=== PATIENT | female | born 1965 | race Caucasian/White ===

== ENCOUNTER 2017-08-11 13:57 | Inpatient (IN) ==
[2017-08-11] MEDS ORDERED: Ipratropium/Albuterol Neb 3 ML IH ONE ×2 (14:38→16:31)
[2017-08-11] MEDS ORDERED: methylPREDNISolone 125 MG/2 ML VIAL IVP ONE (14:39)
--- NOTE | 2017-08-11 14:51 | Emergency Department Note ---
Disposition Clinical Impression: COPD exacerbation, Cardiac enzymes elevated Disposition: Admitted As Inpatient Condition: Fair Referrals: NONE,PCP [Primary Care Provider] - Forms: ED Satisfaction Letter Time of Disposition: 15:37 SOB HPI - General Chief Complaint: ED Shortness of Breath/Dyspnea Stated Complaint: QUITA Time Seen by Provider: 08/11/17 14:36 Source: patient Limitations: no limitations Nursing Notes Reviewed: Yes Vital Signs Reviewed: Yes - History of Present Illness 52-year-old with increasing shortness of breath. Patient has history COPD and says she's had several attacks like this in the past. She has chest pain with cough only. Initial EKG shows T-wave inversion II, III and aVF and also V3 and V4. 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 Context: recent illness Severity: moderate Consistency/Duration: constant Improves with: nothing Worsens with: nothing Known history of: COPD Associated symptoms: Reports: chest pain, cough Cough Description: Involuntary Cough Frequency: Intermittent - Related Data Home Medications Medication Instructions Recorded Confirmed Albuterol Neb [Proventil Neb] 2.5 mg IH TID 08/11/17 08/11/17 Benzonatate [Tessalon] 200 mg PO TID PRN 08/11/17 08/11/17 Diclofenac Sodium [Voltaren] 75 mg PO BID PRN 08/11/17 08/11/17 Lisinopril [Zestril] 20 mg PO DAILY 08/11/17 08/11/17 Allergies Allergy/AdvReac Type Severity Reaction Status Date / Time No Known Allergies Allergy Verified 08/11/17 14:04 All systems ED: reviewed and negative except as stated. Constitutional: Denies: fever, chills, weakness, weight change Eyes: Denies: eye pain, eye discharge, vision change ENT ED: Denies: ear pain, throat pain, dental pain, hearing loss, epistaxis, congestion, dysphagia Cardiovascular: Reports: chest pain (Chest pain with coughing ). Denies: palpitations, dyspnea on exertion, edema, syncope Respiratory: Reports: cough. Denies: dyspnea, wheezes, hemoptysis, stridor Gastrointestinal: Denies: abdominal pain, nausea, vomiting, diarrhea, constipation, hematemesis, melena, hematochezia Genitourinary: Denies: dysuria, frequency, hematuria, discharge Musculoskeletal: Denies: back pain, neck pain, arthralgia, myalgia Integumentary: Denies: rash, abrasion, lesions Neurological: Denies: headache, weakness, numbness, paresthesias, confusion, abnormal gait, vertigo Psychiatric: Denies: anxiety, depression, suicidal thoughts, homicidal thoughts , auditory hallucinations, visual hallucinations Endocrine: Denies: fatigue Hematological/Lymphatic: Denies: easy bleeding, easy bruising Allergic/Immunologic: Denies: facial swelling, urticaria Past Medical History - Past Medical History Medical history: Reports: COPD, hypertension, other Psychiatric history: Reports: no psych history - Social History Smoking Status: Current every day smoker Smokeless Tobacco Status: No Alcohol use: Reports: none Drug use: Reports: none Physical Exam - General Limitations: no limitations General appearance: alert - Head Head exam: atraumatic, normocephalic, normal inspection - Eye Eye exam: Present: normal appearance, PERRL, EOMI - ENT ENT exam: normal exam, normal oropharynx, mucous membranes moist - Neck Neck exam: Present: normal inspection, full ROM, trachea midline - Chest Chest inspection: Present: normal inspection - Respiratory Respiratory exam: Present: wheezes, accessory muscle use, prolonged expiratory phase - Cardiovascular Cardiovascular exam: Present: regular rate, normal rhythm, normal heart sounds - Abdominal Exam Abdominal exam: Present: soft, Non-Tender. Absent: tenderness, distention, guarding, rebound, rigidity - Extremities Exam Extremities exam: Present: normal inspection, full ROM. Absent: tenderness, pedal edema - Expanded Lower Extremity Exam Neurovascular/Tendon exam: Absent: motor deficit, sensory deficit, tendon deficit Gait: not tested/not observed - Back Exam Back exam: Present: normal inspection, full ROM. Absent: tenderness - Neurological Exam Neurological exam: Present: alert, oriented X3 - Psychiatric Psychiatric exam: Present: normal affect, normal mood - Skin Skin exam: Present: warm, dry, intact, normal color Course - Reevaluation(s) Reevaluation #1: 52-year-old with a history COPD comes in with increasing shortness of breath. Workup included an EKG that showed new T-wave inversion in inferior leads II, III, and F aVF, V4 and V5. The EKG was sent to the soda dialyzer for review. Patient will be admitted. Time: 15:36 - Consultations Consultation #1: Discussed with Dr. Grayson, copies of EKG were sent to hit him for review. Time: 14:54 Consultation #2: Cardiology return phone call concerning the EKG just now and wants it run by the interventionalists does not eat STEMI protocol but is somewhat worrisome. Recommend heparin. Time: 15:47 Consultation #3: DIscussed with Dr. Pike interventional cardiology. We did send the EKG to him. Time: 16:09 Additional Consultation(s): 16:[address] Pike is here seeing patient. 16:[address] Pike request a repeat troponin and CK. At this point in time he is not going to go to [facility] thinks most of the problem is COPD we will admit. 16:44PM discussed with Dr. Stephens, admit. Vital Signs Temperature 97.4 F L 08/11/17 14:01 Pulse Rate 97 08/11/17 14:01 Respiratory Rate 22 08/11/17 14:01 Blood Pressure 133/82 08/11/17 14:01 O2 Sat by Pulse Oximetry 77 08/11/17 14:01 Temperature 97.4 F L 08/11/17 14:01 Pulse Rate 88 08/11/17 15:29 Respiratory Rate 18 08/11/17 15:29 Blood Pressure 128/90 08/11/17 15:29 O2 Sat by Pulse Oximetry 99 08/11/17 15:29 Oxygen Delivery Oxygen Delivery Nasal Cannula Shortness of Breath/Dyspnea - Lab Data Lab results reviewed: Yes I reviewed the patient's lab results. Result diagrams: 08/11/17 14:48 08/11/17 14:48 Lab Results 08/11/17 08/11/17 08/11/17 Range/Units 14:48 14:48 14:48 WBC 7.6 (4.3-11.1) K/mcL RBC 5.19 H (3.82-4.97) M/mcL Hgb 16.9 H (11.5-15.4) g/dL Hct 50.3 H (35.3-44.9) % MCV 96.9 (83.0-100.0) fL MCH 32.6 (28.0-33.3) pg MCHC 33.6 (31.6-35.5) g/dL RDW 14.6 H (11.5-14.5) % Plt Count 243 (140-400) K/mcL MPV 9.6 (9.4-12.4) fL Immature Gran % 0.5 (0-4) % Seg Neutrophils % 79.1 % Lymphocytes % 13.9 % Monocytes % 4.7 % Eosinophils % 1.3 % Basophils % 0.5 % Neutrophils # 6.0 (1.6-8.9) K/mcL Lymphocytes # 1.1 (0.6-4.6) K/mcL Monocytes # 0.4 (0.0-1.3) K/mcL Eosinophils # 0.1 (0.0-0.6) K/mcL Basophils # 0.0 (0.0-0.2) K/mcL Sodium 137 (136-145) mEq/L Potassium 4.2 (3.5-4.5) mEq/L Chloride 98 (98-109) mEq/L Carbon Dioxide 29 (19-29) mEq/L BUN 8 (7-20) mg/dL Creatinine 0.69 (0.57-1.11) mg/dL Est GFR ( Amer) > 60 (> 60) Est GFR (Non-Af Amer) > 60 (> 60) BUN/Creatinine Ratio 12 (6-26) Glucose 164 H (70-99) mg/dL Calculated Osmolality 286 (280-300) Lactic Acid 1.2 (0.5-2.2) mmol/L Calcium 8.9 (8.6-10.8) mg/dL Troponin I (0-0.03) ng/mL B-Natriuretic Peptide (0-100) pg/mL Urine Test (Negative) Specimen Rejected 08/11/17 08/11/17 08/11/17 Range/Units 14:48 14:48 14:52 WBC (4.3-11.1) K/mcL RBC (3.82-4.97) M/mcL Hgb (11.5-15.4) g/dL Hct (35.3-44.9) % MCV (83.0-100.0) fL MCH (28.0-33.3) pg MCHC (31.6-35.5) g/dL RDW (11.5-14.5) % Plt Count (140-400) K/mcL MPV (9.4-12.4) fL Immature Gran % (0-4) % Seg Neutrophils % % Lymphocytes % % Monocytes % % Eosinophils % % Basophils % % Neutrophils # (1.6-8.9) K/mcL Lymphocytes # (0.6-4.6) K/mcL Monocytes # (0.0-1.3) K/mcL Eosinophils # (0.0-0.6) K/mcL Basophils # (0.0-0.2) K/mcL Sodium (136-145) mEq/L Potassium (3.5-4.5) mEq/L Chloride (98-109) mEq/L Carbon Dioxide (19-29) mEq/L BUN (7-20) mg/dL Creatinine (0.57-1.11) mg/dL Est GFR ( Amer) (> 60) Est GFR (Non-Af Amer) (> 60) BUN/Creatinine Ratio (6-26) Glucose (70-99) mg/dL Calculated Osmolality (280-300) Lactic Acid (0.5-2.2) mmol/L Calcium (8.6-10.8) mg/dL Troponin I 0.05 H* (0-0.03) ng/mL B-Natriuretic Peptide 673 H (0-100) pg/mL Urine Test (Negative) Specimen Rejected Hemolyzed 08/11/17 Range/Units 15:27 WBC (4.3-11.1) K/mcL RBC (3.82-4.97) M/mcL Hgb (11.5-15.4) g/dL Hct (35.3-44.9) % MCV (83.0-100.0) fL MCH (28.0-33.3) pg MCHC (31.6-35.5) g/dL RDW (11.5-14.5) % Plt Count (140-400) K/mcL MPV (9.4-12.4) fL Immature Gran % (0-4) % Seg Neutrophils % % Lymphocytes % % Monocytes % % Eosinophils % % Basophils % % Neutrophils # (1.6-8.9) K/mcL Lymphocytes # (0.6-4.6) K/mcL Monocytes # (0.0-1.3) K/mcL Eosinophils # (0.0-0.6) K/mcL Basophils # (0.0-0.2) K/mcL Sodium (136-145) mEq/L Potassium (3.5-4.5) mEq/L Chloride (98-109) mEq/L Carbon Dioxide (19-29) mEq/L BUN (7-20) mg/dL Creatinine (0.57-1.11) mg/dL Est GFR ( Amer) (> 60) Est GFR (Non-Af Amer) (> 60) BUN/Creatinine Ratio (6-26) Glucose (70-99) mg/dL Calculated Osmolality (280-300) Lactic Acid (0.5-2.2) mmol/L Calcium (8.6-10.8) mg/dL Troponin I (0-0.03) ng/mL B-Natriuretic Peptide (0-100) pg/mL Urine Test Negative (Negative) Specimen Rejected - Radiology Data Radiology results reviewed: Yes I reviewed the patient's radiology results. Chest X-Ray 08/11/17 14:04 IMPRESSION: 1. No active pulmonary disease. D/ / Giovany Puente MD / Giovany Puente MD Interpreting Provider: Giovany Puente MD - EKG Data EKG attestation: Yes I reviewed and interpreted this EKG. EKG shows normal: Reports: sinus rhythm Rate: Reports: normal Rhythm: Reports: NSR Sims/QRS: Reports: normal Voltage: Reports: increased voltage throughout T wave inversions noted in: Reports: II, III, aVF, v4, v5 When compared to previous EKG there are: changes noted Interpretation: Reports: no acute changes Critical Care Time Critical Care Time: Yes Total Critical Care Time: 30 Attestation: The high probability of a clinically significant, sudden or life threatening deterioration of the [cardiovascular, respiratory] system(s) required my full and direct attention, intervention and personal management. The aggregate critical care time was [30] minutes. This time is in addition to time spent performing reported procedures but includes the following: [x] Data Review and interpretation [x] Patient assessment and monitoring of vital signs [x] Documentation [x] Medication orders and management
[2017-08-11 15:05] LABS: Basophils % 0.5 %; Eosinophils # 0.1 K/mcL (0.0-0.6); Eosinophils % 1.3 %; Hematocrit 50.3 % (35.3-44.9); Hemoglobin 16.9 g/dL (11.5-15.4); Immature Granulocytes % 0.5 % (0-4); Lymphocytes # 1.1 K/mcL (0.6-4.6); Lymphocytes % 13.9 %; Mean Corpuscular HGB Conc 33.6 g/dL (31.6-35.5); Mean Corpuscular Hemoglobin 32.6 pg (28.0-33.3); Mean Corpuscular Volume 96.9 fL (83.0-100.0); Mean Platelet Volume 9.6 fL (9.4-12.4); Monocytes # 0.4 K/mcL (0.0-1.3); Monocytes % 4.7 %; Platelet Count 243 K/mcL (140-400); Red Blood Count 5.19 M/mcL (3.82-4.97); Red Cell Distribution Width 14.6 % (11.5-14.5); Segmented Neutrophils % 79.1 %
[2017-08-11 15:12] LABS: BUN/Creatinine Ratio 12 (6-26); Blood Urea Nitrogen 8 mg/dL (7-20); Calcium 8.9 mg/dL (8.6-10.8); Carbon Dioxide 29 mEq/L (19-29); Chloride 98 mEq/L (98-109); Glucose 164 mg/dL (70-99); Osmolality,Calculated 286 (280-300); Potassium 4.2 mEq/L (3.5-4.5); Sodium 137 mEq/L (136-145); eGFR For African Americans > 60 (> 60); eGFR For Non-African Americans > 60 (> 60)
[2017-08-11] MEDS ORDERED: Aspirin 81 MG TAB.CHEW PO ONE (15:38)
[2017-08-11] MEDS ORDERED: *HR* Heparin 5,000 UNIT/ML VIAL IVP ONE (15:48)
[2017-08-11] MEDS ORDERED: *HR* Heparin 5,000 UNIT/ML VIAL IVP PRN ×2 (15:48)
[2017-08-11] MEDS: Heparin 25,000 UNIT/500 ML D5W 25,000 UNIT/500 ML MLS IVC SCH (16:25)
[2017-08-11] MEDS ORDERED: Levalbuterol Neb 1.25 MG/3 ML IH STA (16:32)
[2017-08-11 16:48] LABS: INR 1.4
--- NOTE | 2017-08-11 16:51 | Cardiology Consult Note ---
Date of Encounter: 08/11/17 Time of Encounter: 16:47 Assessment and Plan (1) Cardiac enzymes elevated Current Visit: Yes Status: Acute Troponins of 0.05 with an abnormal EKG biphasic T waves V4 through V6 and flipped T waves in the inferior leads mainly not indicated a significant wraparound LAD disease. Patient currently asymptomatic in regards to chest pain and her breathing is much improved with bronchodilators. As she is making progress A do not feel the patient is a candidate for left heart catheter due to her inability to lay flat. Her risk benefit ratio is 2 elevated at this time. If she has elevated troponins on her repeat to be obtained stat or she complains of increasing tachypnea and respiratory insufficiency or chest pain she will need sedated and intubated with an emergent left heart catheter. Medical management with aspirin and heparin ACS protocol will be initiated meanwhile. We will obtain an echocardiogram to evaluate her ejection fraction and rule out regional wall motion abnormalities Code(s): R74.8 - Abnormal levels of other serum enzymes Discussion w patient/family: The assessment and plan as outlined above was discussed with the patient and/or family members who expressed understanding and agreement. All questions were answered. Thank you for involving us in the care of your patient. Please call with any questions. History of Present Illness Consult date: 08/11/17 Requesting physician: Harish Quiroz Consult reason: Abnormal EKG Chief complaint: SOB History of present illness: Ms. Davila is a 52 year old female with history of COPD presenting to the emergency department with significant respiratory insufficiency. She initially presented to an urgent care with severe respiratory distress and shortness of breath wheezing. She was offered a breathing treatment with bronchodilators and presented eventually to [facility] ED. Her initial EKG reveals biphasic T waves V4 through V6 with flipped T waves in the inferior leads. She has an incomplete right bundle-branch block as well. This may be related to her severe respiratory insufficiency and long-standing COPD. It also may indicate underlying ischemia. Initial troponin 0.05 she currently is resting comfortably denying any chest pain or current shortness of breath. She is currently not in respiratory distress. She is however continuing to wheeze with diminished air entry bibasilar. She currently is unable to lay flat for left heart catheter. Her initial troponins are unremarkable and her EKG does not indicate any current ST elevations. Patient understands that procedure left heart catheter at this time would involve possible intubation with ventilator support. Her initial presentation was a 9 out of 10 in regards to her shortness of breath currently at 3. We will repeat a set of cardiac enzymes to follow up and evaluate for a trend as well as a breathing treatment. She has any further episodes of chest pain or increasing respiratory insufficiency unexplained by her underlying uncle spasm patient likely would be a candidate for sedation and intubation with a left heart catheter. She will be started on heparin ACS protocol aspirin. Past Med Surg Social Fam HX - Past Medical History Medical history: COPD, hypertension, other Psychiatric history: no psych history - Social History Smoking Status: Current every day smoker Smokeless Tobacco Status: No Alcohol use: none Drug use: none Medications and Allergies Albuterol Neb [Proventil Neb] 2.5 mg IH TID 08/11/17 [History] Benzonatate [Tessalon] 200 mg PO TID PRN 08/11/17 [History] Diclofenac Sodium [Voltaren] 75 mg PO BID PRN 08/11/17 [History] Lisinopril [Zestril] 20 mg PO DAILY 08/11/17 [History] 3 Allergy/AdvReac Type Severity Reaction Status Date / Time No Known Allergies Allergy Verified 08/11/17 14:04 All Systems Review: A 10-system review of systems was performed and is negative for pertinent findings except as documented above in the HPI. Physical Examination Vital Signs, Last 4 Hours Temp Pulse Resp BP Pulse Ox 08/11/17 15:29 88 18 128/90 99 08/11/17 14:39 88 16 127/86 93 08/11/17 14:04 92 08/11/17 14:01 97.4 F L 97 22 133/82 77 General: Conversant, No Apparent Distress HEENT: Atraumatic, Normocephaly, Mucus Membranes Moist Neck: No JVD, Normal carotid pulses Cardiac: Reg Rate and Rhythm, Normal S1 and S2, No Murmur Lungs: Normal Breath Sounds, No Wheeze, Rales, Rhonchi, Other (Bibasilar diminished air entry with inspiratory and expiratory wheezes) Neuro: Alert and responsive, No focal deficits noted Abdomen: Soft, Non-Tender Skin: No rashes noted on visualized skin Musculoskeletal: No Chest Wall Tenderness Extremities: No Clubbing, No Cyanosis, No Edema, Normal Pulses Results 08/11/17 14:48 08/11/17 14:48 Lab Results 08/11/17 08/11/17 08/11/17 14:48 14:48 14:48 WBC 7.6 Hgb 16.9 H Hct 50.3 H Plt Count 243 Sodium 137 Potassium 4.2 Chloride 98 Carbon Dioxide 29 BUN 8 Creatinine 0.69 Glucose 164 H Calcium 8.9 Troponin I 0.05 H* B-Natriuretic Peptide 08/11/17 14:48 WBC Hgb Hct Plt Count Sodium Potassium Chloride Carbon Dioxide BUN Creatinine Glucose Calcium Troponin I B-Natriuretic Peptide 673 H Consult Discharge Plan - Plan Referrals: NONE,PCP [Primary Care Provider] -
[2017-08-11 17:11] LABS: Activated Partial Thrombo Time > 360.0 Seconds (26.0-36.0)
[2017-08-11] MEDS ORDERED: *HR* Promethazine 25 MG/ML VIAL IVP PRN (20:48)
[2017-08-11] MEDS ORDERED: Naloxone 0.4 MG/ML INJ IVP PRN (20:48)
[2017-08-11] MEDS ORDERED: Acetaminophen 325 MG TABLET PO PRN (20:48)
[2017-08-11] MEDS ORDERED: *HR* Morphine 2 MG/ML SYRINGE IVP PRN (20:48)
[2017-08-11] MEDS ORDERED: Albuterol 2.5 MG/3 ML NEBULIZER IH PRN (20:55)
[2017-08-11] MEDS ORDERED: Nitroglycerin 0.4 MG TAB.SUBL SL PRN (20:56)
--- NOTE | 2017-08-11 21:08 | Internal Med History&Physical ---
Date of Encounter: 08/11/17 Time of Encounter: 20:10 Assessment and Plan (1) COPD exacerbation Current visit: Yes Status: Acute 1. Will continue IV Steroids, scheduled Duoneb aerosols and PRN albuterol aerosols. 2. Oxygen as needed for support. 3. Given the report of low grade fevers, will add PO Levaquin and monitor clinically. 4. Smoking cessation well advised. (2) NSTEMI (non-ST elevated myocardial infarction) Current visit: Yes Status: Acute 1. Will continue heparin drip per ACS protocol. 2. Will start patient on ASA, STATIN, BB as tolerated, and continue STEPHANIE. 3. Cycle troponins and EKG's. 4. Cardiology has already been consulted and will help with cardiac work-up. 5. Patient remains chest pain free. (3) DVT prophylaxis Current visit: Yes Status: Acute 1. On heparin drip currently. Internal Medicine - H&P: HPI Chief complaint: SOB; cough Admitted From: Emergency Dept Plans for Post Hospital Care: Home History of present illness: Ms. Davila is a 52 year old female who presents to the ER with complaints of coughing, wheezing, and shortness of breath. Symptoms started about 1 week ago and have progressively worsened. She has a history of known COPD and continues to smoke. She admits to smoking more than normal the last few months. She has had multiple COPD exacerbations in the past, but she has never been admitted and has signed out AMA from the ER in the past. However, this time, she was noted to have ST depression inferiorly on her EKG and an elevated troponin. Cardiology was consulted and patient was placed on a heparin drip and admitted to the hospitalist service. She agreed to stay in the hospital this time due to the new cardiac findings. She states she has a history of heart failure, but she has not been admitted here in the past that I can elicit on history and old records. She has no PCP and has not seen a doctor in many years. Patient denies any chest pain whatsoever. Her only complaints have been coughing, wheezing, and shortness of breath. She has had low grade fevers (< 100 F) and productive sputum. She remains chest pain free. Past Med Surg Social Fam HX - Past Medical History Attestation: Yes The following information was validated with the patient. Source: patient Medical history: COPD, hypertension, other Psychiatric history: no psych history - Past Surgical History Surgical History: no surgical history - Social History Smoking Status: Current every day smoker Smokeless Tobacco Status: No Alcohol use: none Drug use: none Current living situation: Home, With Family Activity Level: Independent ambulation Recent Out of Country Travel Within the Last 8 Weeks: No - Family History Mother History Unknown: Yes Father History Unknown: Yes Internal Medicine - H&P: Meds Albuterol Neb [Proventil Neb] 2.5 mg IH TID 08/11/17 [History] Benzonatate [Tessalon] 200 mg PO TID PRN 08/11/17 [History] Diclofenac Sodium [Voltaren] 75 mg PO BID PRN 08/11/17 [History] Lisinopril [Zestril] 20 mg PO DAILY 08/11/17 [History] 3 Allergy/AdvReac Type Severity Reaction Status Date / Time No Known Allergies Allergy Verified 08/11/17 14:04 - Constitutional Constitutional: fever(s), no chills, no night sweats - EENT Eyes: no blurry vision, no change in vision Ears: no ear pain, no tinnitus Nose, mouth and throat: no nasal congestion, no sinus pressure, no sore throat - Cardiovascular Cardiovascular ROS IM: dyspnea, dyspnea on exertion, no chest pain, no diaphoresis, no edema, no palpitations, no syncope - Respiratory Respiratory: cough, dyspnea, wheezing, chest congestion, excessive phlegm production, change in phlegm color, no hemoptysis - Gastrointestinal Gastrointestinal: no abdominal pain, no diarrhea, no hematemesis, no hematochezia, no melena, no nausea, no vomiting - Genitourinary Genitourinary: no dysuria, no flank pain, no hematuria - Musculoskeletal Musculoskeletal ROS IM: no arthralgias, no back pain - Integumentary Integumentary IM: no rash, no jaundice - Neurological Neurological ROS: no focal weakness, no headache(s), no numbness, no weakness - Psychiatric Psychiatric: no anxiety, no depression - Endocrine Endocrine IM: no polydipsia, no polyphagia, no polyuria - Hematologic/Lymphatic Hematologic/Lymphatic: no lymphadenopathy - Allergic/Immunologic Allergic/Immunologic: wheezing, no GI upset with certain foods - Constitutional Vitals: Temp Pulse Resp BP Pulse Ox 98.2 F 83 18 124/68 91 10/31/17 19:52 08/11/17 19:52 08/11/17 19:52 08/11/17 19:52 08/11/17 19:52 General appearance: Present: cooperative, A&O X 3, pleasant, no acute distress - Head Head exam: Present: atraumatic, normal inspection - Expanded Head Exam Head exam expanded: Present: abrasion - Eye Eye exam: Present: EOMI, normal appearance, PERRL. Absent: scleral icterus Pupils: Present: normal accommodation - ENT ENT exam: Present: normal exam, normal oropharynx - Neck Neck exam general surgery: Present: full ROM, normal inspection, supple. Absent : tenderness - Expanded Neck Exam Neck exam: Absent: carotid bruit - Respiratory Respiratory exam: Present: prolonged expiratory phase, respiratory distress ( mild), rhonchi, wheezes. Absent: chest wall tenderness, rales - Cardiovascular Cardiovascular exam: Present: RRR, +S1, +S2. Absent: diastolic murmur, JVD, systolic murmur - GI/Abdominal GI/Abdominal exam: Present: normal bowel sounds, soft. Absent: hepatomegaly, mass, splenomegaly, tenderness - Extremities Exam Extremities exam: Present: warm, radial pulses palpable and symmetrical. Absent : calf tenderness, joint swelling, pedal edema - Back Exam Back exam: Absent: CVA tenderness (L), CVA tenderness (R) - Neurological Exam Neurological exam: Present: alert, CN II-XII intact, oriented X3, no focal deficits - Psychiatric Psychiatric exam: Present: normal affect, normal mood - Skin Skin exam: Present: dry, warm. Absent: rash Internal Med - H&P Results - Labs CBC & Chem 7: 08/11/17 14:48 08/11/17 14:48 - EKG Data -: EKG Interpreted by Myself - EKG Data Prior EKG available for review: no EKG comments: 08/11/17 21:24 Sinus rhythm with inferior ST-T depression and flipped T waves - Diagnostic Studies Chest x-ray Status: image reviewed by me (negative) - VTE Reasons for not Prescribing Prophylaxis: Not indicated-Anticoagulated or INR therapeutic
[2017-08-11] MEDS: methylPREDNISolone 125 MG/2 ML VIAL IVP SCH (23:02)
[2017-08-12] MEDS: Ipratropium/Albuterol Neb 3 ML IH SCH ×7 (00:35→23:27)
[2017-08-12 05:43] LABS: Basophils % 0.3 %; Hematocrit 49.4 % (35.3-44.9); Immature Granulocytes % 1.4 % (0-4); Lymphocytes # 1.1 K/mcL (0.6-4.6); Lymphocytes % 15.9 %; Mean Corpuscular HGB Conc 32.4 g/dL (31.6-35.5); Mean Corpuscular Hemoglobin 31.9 pg (28.0-33.3); Mean Corpuscular Volume 98.4 fL (83.0-100.0); Mean Platelet Volume 9.6 fL (9.4-12.4); Monocytes # 0.2 K/mcL (0.0-1.3); Monocytes % 2.4 %; Neutrophils # 5.6 K/mcL (1.6-8.9); Platelet Count 244 K/mcL (140-400); Red Blood Count 5.02 M/mcL (3.82-4.97); Red Cell Distribution Width 14.4 % (11.5-14.5)
[2017-08-12 05:58] LABS: Alanine Aminotransferase 19 Units/L (0-55); Albumin 2.9 g/dL (3.5-5.0); Albumin/Globulin Ratio 0.7 (1.1-2.2); Alkaline Phosphatase 97 Units/L (38-126); Aspartate Amino Transferase 18 Units/L (5-34); BUN/Creatinine Ratio 16 (6-26); Bilirubin,Total 0.4 mg/dL (0.2-1.2); Blood Urea Nitrogen 10 mg/dL (7-20); Carbon Dioxide 32 mEq/L (19-29); Chloride 96 mEq/L (98-109); Cholesterol 102 mg/dL (< 200); Globulin 4.2 g/dL (2.4-3.5); Glucose 232 mg/dL (70-99); HDL Cholesterol 17 mg/dL (40-59); LDL Cholesterol,Calculated 59 mg/dL (0-99); Magnesium 1.7 mg/dL (1.6-2.6); Osmolality,Calculated 290 (280-300); Potassium 4.5 mEq/L (3.5-4.5); Sodium 137 mEq/L (136-145); Total Protein 7.1 g/dL (6.0-8.3); Triglycerides 131 mg/dL (< 150); eGFR For African Americans > 60 (> 60); eGFR For Non-African Americans > 60 (> 60)
--- NOTE | 2017-08-12 07:59 | Electrocardiograph Report ---
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
--- NOTE | 2017-08-12 08:12 | Electrocardiograph Report ---
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
--- NOTE | 2017-08-12 08:28 | Cardiology Progress Note ---
Date of Encounter: 08/12/17 Time of Encounter: 08:28 Assessment and Plan (1) Cardiac enzymes elevated Current Visit: Yes Status: Acute Most likely due to Respiratory cause vs less likely ACS related. Trops since admission 0.01, 0.05, 0.04, 0.02, 0.03. EKG showed flipped T wave in inferior leads. 08/11/17 - echo LVEF 65-70%, with normal wall motion. Patient remains unstable, and may need to be intubated + sedated for Left heart cath. Patient' s symptoms have responded to bronchodilators - if patient increasingly become tachypnea, respiratory insufficiency or chest pain, will consider emergent left heart cath - continue ASA and heparin ACS protocol - continue home meds: lisinopril 20 qd. (2) COPD exacerbation Current Visit: Yes Status: Acute per management of medicine team (3) Tobacco abuse Current Visit: Yes Status: Acute patient reports that she continues to smoke, advised patient to quit smoking Discussion w patient/family: The assessment and plan as outlined above was discussed with the patient and/or family members who expressed understanding and agreement. All questions were answered. Thank you for involving us in the care of your patient. Please call with any questions. Subjective Principal diagnosis: elevated trops Interval history: Ms Davila is a 52 year old female w/ hx of COPD who presented to the ED with SOB and respiratory distress. Today she continues to deny chest pain, but continues to have difficulty breathing. She continues to be unable to lay flat. Objective Vital Signs, Last 4 Hours Temp Pulse Resp BP Pulse Ox 08/12/17 07:41 16 91 08/12/17 06:59 98.2 F 64 16 130/81 93 08/12/17 05:09 20 93 General: Conversant, Other (moderate discomfort. limited mobility, and unable to lay flat.) HEENT: Atraumatic, Normocephaly, Mucus Membranes Moist Neck: No JVD, Normal carotid pulses Cardiac: Reg Rate and Rhythm, Normal S1 and S2, No Murmur Lungs: Other (expirator wheezes diffusely. accessory muscles used to breath.) Neuro: Alert and responsive, No focal deficits noted Abdomen: Soft Musculoskeletal: No Chest Wall Tenderness Extremities: No Clubbing, No Cyanosis, Normal Pulses, Other (2/4 bilateraly pitting edema in lower extremities) Results 08/12/17 05:05 08/12/17 05:05 Lab Results 08/11/17 08/11/17 08/12/17 21:48 21:48 05:05 WBC 7.1 Hgb 16.0 H Hct 49.4 H Plt Count 244 APTT 51.1 H D Sodium Potassium Chloride Carbon Dioxide BUN Creatinine Glucose Calcium Magnesium Total Bilirubin AST ALT Alkaline Phosphatase Troponin I 0.02 08/12/17 08/12/17 08/12/17 05:05 05:05 05:05 WBC Hgb Hct Plt Count APTT 69.0 H Sodium 137 Potassium 4.5 Chloride 96 L Carbon Dioxide 32 H BUN 10 Creatinine 0.64 Glucose 232 H Calcium 9.0 Magnesium 1.7 Total Bilirubin 0.4 AST 18 ALT 19 Alkaline Phosphatase 97 Troponin I 0.03 - VTE Reasons for not Prescribing Prophylaxis: Not indicated-Anticoagulated or INR therapeutic Consult Discharge Plan - Plan Referrals: NONE,PCP [Primary Care Provider] -
[2017-08-12] MEDS: Lisinopril 20 MG TABLET PO SCH (09:46)
[2017-08-12] MEDS: Aspirin 81 MG TAB.CHEW PO SCH (09:46)
[2017-08-12] MEDS: methylPREDNISolone 125 MG/2 ML VIAL IVP SCH ×3 (09:47→20:26)
[2017-08-12] MEDS: levoFLOXacin 500 MG TABLET PO SCH (09:47)
[2017-08-12] MEDS: Heparin 25,000 UNIT/500 ML D5W 25,000 UNIT/500 ML MLS IVC SCH (11:19)
--- NOTE | 2017-08-12 11:32 | Internal Med Progress Note ---
Date of Encounter: 08/12/17 Time of Encounter: 11:15 - Assessment and plan (1) NSTEMI (non-ST elevated myocardial infarction) Current Visit: Yes Status: Acute Assessment and plan: Patient presented with worsening dyspnea, has been lost to medical follow-up for the last few years. Continues to smoke, not on any home medications. Mild troponin elevation of 0.05, BNP around 600. Noted to have dynamic EKG changes with biphasic T waves and T-wave inversions in lateral leads. Started on anti- coagulation with IV heparin drip, aspirin, beta merna, statin, STEPAHNIE inhibitor. Cardiology consultation follow-up appreciated. Limited echocardiogram showed preserved ejection fraction, no wall motion abnormalities. Patient would benefit from left heart catheterization when respiratory status is optimized. Agrees with current management, to continue IV heparin drip for another 24 hours. Continue telemetry monitoring and trend troponins. (2) Tobacco abuse Current Visit: Yes Status: Chronic Assessment and plan: Smoking cessation advised. Continue nicotine transdermal patch. (3) COPD exacerbation Current Visit: Yes Status: Acute Assessment and plan: Due to continued tobacco abuse and medical noncompliance. Continue IV steroids , taper down as tolerated. Continue scheduled bronchodilators, empiric IV antibiotics and supplemental oxygen. Chest x-ray shows no acute infiltrates. - Subjective Interval history: Patient was lost to medical followup for the last 4 years as she was dismissed from PCP office due to not honoring pain contract, and has not been able to find another doctor since then? She also lost her insurance card and recently got it back. Improving shortness of breath; no chest pain, palpitations, fever/chills, cough; - Constitutional Vitals: Temp Pulse Resp BP Pulse Ox 98.2 F 64 16 130/81 91 08/12/17 06:59 08/12/17 06:59 08/12/17 07:41 08/12/17 06:59 08/12/17 07:41 General appearance: Present: cooperative, A&O X 3, answers questions appropriately - Respiratory Respiratory exam: Present: decreased breath sounds (decreased air entry B/L), CTAB. Absent: accessory muscle use, rales, rhonchi, wheezes - Cardiovascular Cardiovascular exam: Present: RRR, +S1, +S2. Absent: diastolic murmur, gallop, rubs, systolic murmur - GI/Abdominal GI/Abdominal exam: Present: normal bowel sounds, soft, no peritoneal signs. Absent: distended, tenderness - Extremities Exam Extremities exam: Present: full ROM, warm, radial pulses palpable and symmetrical. Absent: calf tenderness, cyanotic, pedal edema - Neurological Exam Neurological exam: Present: CN II-XII intact, oriented X3, no focal deficits. Absent: pronater drift, facial droop, speech deficit - Skin Skin exam: Present: dry, intact Internal Medicine: Result - Labs CBC & Chem 7: 08/12/17 05:05 08/12/17 05:05 Labs: Short CBC 08/12/17 Range/Units 05:05 WBC 7.1 (4.3-11.1) K/mcL Hgb 16.0 H (11.5-15.4) g/dL Hct 49.4 H (35.3-44.9) % Plt Count 244 (140-400) K/mcL Neutrophils # 5.6 (1.6-8.9) K/mcL BMP 08/12/17 05:05 Sodium 137 Potassium 4.5 Chloride 96 L Carbon Dioxide 32 H BUN 10 Creatinine 0.64 Glucose 232 H Calcium 9.0 Cardiac Enzymes 08/11/17 08/12/17 Range/Units 21:48 05:05 Troponin I 0.02 0.03 (0-0.03) ng/mL Liver Function 08/12/17 Range/Units 05:05 Total Bilirubin 0.4 (0.2-1.2) mg/dL AST 18 (5-34) Units/L ALT 19 (0-55) Units/L Alkaline Phosphatase 97 (38-126) Units/L Albumin 2.9 L (3.5-5.0) g/dL - ABG Interpretation ABG results: PT/INR, D-dimer PT 15.0 Seconds (9.4-12.1) H 08/11/17 16:34 - VTE Reasons for not Prescribing Prophylaxis: Not indicated-Anticoagulated or INR therapeutic Consult Discharge Plan - Plan Referrals: Finesse Hollins DO [Resident] - 08/19/17 10:20 am (please follow up as schedule...) NONE,PCP [Primary Care Provider] -
[2017-08-12] MEDS: Insulin LISPRO 300 UNITS/3 ML VIAL SQ SCH ×3 (12:42→20:30)
[2017-08-12] MEDS: Nicotine 21 MG PATCH.TD24 TD SCH (17:31)
[2017-08-13] MEDS: methylPREDNISolone 125 MG/2 ML VIAL IVP SCH ×2 (02:50→12:42)
[2017-08-13] MEDS: Heparin 25,000 UNIT/500 ML D5W 25,000 UNIT/500 ML MLS IVC SCH (02:53)
[2017-08-13] MEDS: Ipratropium/Albuterol Neb 3 ML IH SCH ×6 (04:07→23:06)
[2017-08-13 05:58] LABS: Basophils % 0.3 %; Hematocrit 49.4 % (35.3-44.9); Hemoglobin 15.9 g/dL (11.5-15.4); Immature Granulocytes % 1.4 % (0-4); Lymphocytes # 0.7 K/mcL (0.6-4.6); Lymphocytes % 7.9 %; Mean Corpuscular HGB Conc 32.2 g/dL (31.6-35.5); Mean Corpuscular Hemoglobin 31.7 pg (28.0-33.3); Mean Corpuscular Volume 98.4 fL (83.0-100.0); Mean Platelet Volume 9.4 fL (9.4-12.4); Monocytes # 0.3 K/mcL (0.0-1.3); Neutrophils # 8.1 K/mcL (1.6-8.9); Platelet Count 221 K/mcL (140-400); Red Blood Count 5.02 M/mcL (3.82-4.97); Red Cell Distribution Width 14.3 % (11.5-14.5); Segmented Neutrophils % 87.4 %
[2017-08-13 06:07] LABS: BUN/Creatinine Ratio 19 (6-26); Blood Urea Nitrogen 13 mg/dL (7-20); Carbon Dioxide 35 mEq/L (19-29); Chloride 98 mEq/L (98-109); Glucose 232 mg/dL (70-99); Osmolality,Calculated 296 (280-300); Potassium 4.6 mEq/L (3.5-4.5); Sodium 139 mEq/L (136-145); eGFR For African Americans > 60 (> 60); eGFR For Non-African Americans > 60 (> 60)
[2017-08-13] MEDS: levoFLOXacin 500 MG TABLET PO SCH (08:21)
[2017-08-13] MEDS: Aspirin 81 MG TAB.CHEW PO SCH (08:21)
[2017-08-13] MEDS: Lisinopril 20 MG TABLET PO SCH (08:22)
[2017-08-13] MEDS: Insulin LISPRO 300 UNITS/3 ML VIAL SQ SCH ×4 (08:22→21:23)
[2017-08-13] MEDS: Nicotine 21 MG PATCH.TD24 TD SCH (08:22)
--- NOTE | 2017-08-13 09:55 | Electrocardiograph Report ---
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
--- NOTE | 2017-08-13 10:15 | Internal Med Progress Note ---
Date of Encounter: 08/13/17 Time of Encounter: 09:30 - Assessment and plan (1) NSTEMI (non-ST elevated myocardial infarction) Current Visit: Yes Status: Acute Assessment and plan: Patient presented with worsening dyspnea, has been lost to medical follow-up for the last few years. Continues to smoke, not on any home medications. Mild troponin elevation of 0.05, BNP around 600. Noted to have dynamic EKG changes with biphasic T waves and T-wave inversions in lateral leads. Cardiology on board, plan for left heart catheterization today. Continue aspirin, beta merna, statin. Discontinue IV heparin drip. Continue telemetry monitoring and trend troponins. (2) Tobacco abuse Current Visit: Yes Status: Chronic Assessment and plan: Smoking cessation advised. Continue nicotine transdermal patch. (3) COPD exacerbation Current Visit: Yes Status: Acute Assessment and plan: Due to continued tobacco abuse and medical noncompliance. Continue IV steroids , taper down as tolerated. Continue scheduled bronchodilators, empiric IV antibiotics and supplemental oxygen. Chest x-ray shows no acute infiltrates. (4) Diabetes mellitus Current Visit: Yes Status: Chronic Assessment and plan: Noted to have elevated blood sugars, patient is also on IV steroids. Check hemoglobin A1c. Continue Accu-Chek blood glucose monitoring with sliding scale insulin as needed. Diabetic diet. Qualifiers: Diabetes mellitus type: type 2 Diabetes mellitus complication status: with unspecified complications Diabetes mellitus superintendent container terminal insulin use: without correction use Qualified Code(s): E11.8 - Type 2 diabetes mellitus with unspecified complications - Subjective Interval history: Feels better; slightly anxious about the scheduled left heart cath this morning ; no chest pain, dyspnea, cough; improving wheezing; no fever/chills; blood sugars noted to be elevated; - Constitutional Vitals: Temp Pulse Resp BP Pulse Ox 97.6 F 63 18 137/81 93 08/13/17 07:08 08/13/17 07:08 08/13/17 08:31 08/13/17 07:08 08/13/17 08:31 General appearance: Present: cooperative, A&O X 3, answers questions appropriately - Respiratory Respiratory exam: Present: CTAB (coarse breath sounds B/L), wheezes (improving B /L wheezing). Absent: accessory muscle use, rales, rhonchi - Cardiovascular Cardiovascular exam: Present: RRR, +S1, +S2. Absent: diastolic murmur, gallop, rubs, systolic murmur - GI/Abdominal GI/Abdominal exam: Present: normal bowel sounds, soft, no peritoneal signs. Absent: distended, tenderness - Extremities Exam Extremities exam: Present: warm, radial pulses palpable and symmetrical. Absent : calf tenderness, cyanotic, pedal edema Internal Medicine: Result - Labs CBC & Chem 7: 08/13/17 05:35 08/13/17 05:35 Labs: Short CBC 08/13/17 Range/Units 05:35 WBC 9.2 (4.3-11.1) K/mcL Hgb 15.9 H (11.5-15.4) g/dL Hct 49.4 H (35.3-44.9) % Plt Count 221 (140-400) K/mcL Neutrophils # 8.1 (1.6-8.9) K/mcL BMP 08/13/17 05:35 Sodium 139 Potassium 4.6 H Chloride 98 Carbon Dioxide 35 H BUN 13 Creatinine 0.69 Glucose 232 H Calcium 9.0 - ABG Interpretation ABG results: PT/INR, D-dimer PT 15.0 Seconds (9.4-12.1) H 08/11/17 16:34 - VTE Reasons for not Prescribing Prophylaxis: Not indicated-Anticoagulated or INR therapeutic Consult Discharge Plan - Plan Referrals: Finesse Hollins DO [Resident] - 08/19/17 10:20 am (please follow up as schedule...)
--- NOTE | 2017-08-13 10:56 | Cardiology Progress Note ---
Date of Encounter: 08/13/17 Time of Encounter: 10:51 Assessment and Plan (1) Cardiac enzymes elevated Current Visit: Yes Status: Acute Most likely due to Respiratory cause vs less likely ACS related. Trops since admission 0.01, 0.05, 0.04, 0.02, 0.03. EKG showed flipped T wave in inferior leads. limited TTE1 - echo LVEF 65-70%, with normal wall motion. Patient's symptoms have responded to bronchodilators - Patient is clinically improving. Had patient flat for 2 minutes without much difficulty or symptoms. Cath scheduled for today. - continue ASA and heparin ACS protocol - continue home meds: lisinopril 20 qd, statin, and metoprolol (2) COPD exacerbation Current Visit: Yes Status: Acute per management of medicine team (3) Tobacco abuse Current Visit: Yes Status: Chronic patient reports that she continues to smoke, advised patient to quit smoking Discussion w patient/family: The assessment and plan as outlined above was discussed with the patient and/or family members who expressed understanding and agreement. All questions were answered. Thank you for involving us in the care of your patient. Please call with any questions. Subjective Principal diagnosis: elevated trops Interval history: Ms Davila is a 52 year old female w/ hx of COPD who presented to the ED with SOB and respiratory distress. No events overnight. Patient reports that her breathing is getting a lot better. Objective Vital Signs, Last 4 Hours Temp Pulse Resp BP Pulse Ox 08/13/17 08:31 18 93 08/13/17 07:08 97.6 F 63 18 137/81 98 General: Conversant, No Apparent Distress HEENT: Atraumatic, Normocephaly, Mucus Membranes Moist Neck: No JVD, Normal carotid pulses Cardiac: Reg Rate and Rhythm, Normal S1 and S2, No Murmur Lungs: Normal Breath Sounds, Other (mild expiratory wheezes diffusely) Neuro: Alert and responsive, No focal deficits noted Abdomen: Soft, Non-Tender Skin: No rashes noted on visualized skin Musculoskeletal: No Chest Wall Tenderness Extremities: No Clubbing, No Cyanosis, No Edema, Normal Pulses Results 08/13/17 05:35 08/13/17 05:35 Lab Results 08/12/17 08/13/17 08/13/17 12:00 05:35 05:35 WBC 9.2 Hgb 15.9 H Hct 49.4 H Plt Count 221 APTT 59.0 H Sodium 139 Potassium 4.6 H Chloride 98 Carbon Dioxide 35 H BUN 13 Creatinine 0.69 Glucose 232 H Calcium 9.0 - VTE Reasons for not Prescribing Prophylaxis: Not indicated-Anticoagulated or INR therapeutic Consult Discharge Plan - Plan Referrals: Finesse Hollins DO [Resident] - 08/19/17 10:20 am (please follow up as schedule...)
[2017-08-13] MEDS ORDERED: Heparin 1,000 UNITS/500 mL NS 500 ML ONE (11:00)
[2017-08-13] MEDS ORDERED: *HR* Heparin 10,000 UNIT/10 ML VIAL ONE (11:00)
[2017-08-13] MEDS ORDERED: 0.9 % Sodium Chloride 1,000 ML ONE ×2 (11:00→11:21)
[2017-08-13 11:03] LABS: Hemoglobin A1C 6.7 %
[2017-08-13] MEDS ORDERED: Nitroglycerin 1,000 MCG/10 ML VIAL IV ONE (11:10)
[2017-08-13] MEDS ORDERED: *HR* Midazolam HCl 2 MG/2 ML VIAL ONE (11:19)
--- NOTE | 2017-08-13 11:40 | Pre-Sedation Evaluation ---
Pre-sedation evaluation - Pre-sedation checklist Date of procedure: 08/13/17 Procedure: [facility] Recent Vitals: Last Vital Signs Temp 98.0 F 08/13/17 10:58 Pulse 68 08/13/17 10:58 Resp 20 08/13/17 10:58 BP 148/90 08/13/17 10:58 Pulse Ox 93 08/13/17 10:58 H&P (including ROS) documented in medical record: Yes Previous reaction to sedatives/anesthetics: No Dietary Status: NPO after Midnight Airway Assessment: Patient can open mouth completely, TMJ function normal Dentition: No loose teeth or bridges Possible difficult airway: No ASA Classification *see protocol: CLASS III-Severe systemic disease Plan of Care: Pt appropriate candidate for procedure/moderate/conscious sedation , Risks/benefits of procedure/sedation discussed w/ patient/family, If not NPO; Risk of intake outweiged by necessity to perform procedure
--- NOTE | 2017-08-13 12:30 | Invasive Diagnostic Lab Proc ---
Name: Ariella Davila Date of Study: 08/13/2017 Date: 1965 Ht: 66.9in Medical Record#: [id number] Age: 52 Wt: 218.26lb Gender: Female BSA: 2.1 Order #: [id number] BMI: 34.26 Physicians Procedure Physician: Anthony Viera MD, [facility] Referring MD: Referring MD: Staff Name Position Time In Hyacinth Smith RN Monitor 11:25 AM Susan Pollard RN Bench Chemist 11:25 AM Citlalli Loja RT (R) Scrub 11:25 AM Indications Indication Non-Stemi Procedures Performed Procedure L HRT ARTERY/VENTRICLE ANGIO Pre-Procedure Checklist Informed consent is complete signed and on chart. H&P is on chart. ID band is on and ID verified with patient. Patient NPO for procedure The procedure was described for the patient and questions were answered. Blood Pressure: 137/81 ECG is on chart. Rhythm: NSR Plan of Care Patient will tolerate the procedure without complications. Adequate level of comfort will be maintained. Hemodynamics will remain stable Patient will recover from procedure without complications. Respiratory function will be maintained. Cardiac rhythm will remain stable. Patient temperature will be maintained. Patient and/or family have verbalized understanding of the procedure. Patient Education Chief Complaint/Reason for Test: Cardiac Cath Developmental Category: Adult (18-64 years) Developmentally Appropriate for Age: Yes Learning Barriers: None Education Needs: Procedure Education Method: Verbal Information Taught: Cardiac Cath Educational Evaluation: Able to repeat information Intravenous Access Time IV Size Location DC'd Fluid/Drip Rate Units RN 11:47 AM 20g 1 1/4" Patent On Arrival Rt Arm 0.9NaCl 25 ml/hr Susan Pollard RN Allergies NKA Vital Signs Time BP (mmHg) HR (bpm) O2 Sat. RR (bpm) LOC 137 / 81 63 93 % 18 11:26 AM / % 5 = Fully awake and oriented or at pre-proc level 11:26 AM / % 4 = Oriented but drowsy 11:43 AM / % 4 = Oriented but drowsy 11:59 AM / % 4 = Oriented but drowsy 11:43 AM 159 / 88 66 93 % 18 11:48 AM 146 / 82 75 92 % 19 11:53 AM 149 / 81 69 98 % 14 11:58 AM 140 / 84 74 99 % 16 12:03 PM 150 / 82 75 99 % 17 12:08 PM 161 / 92 79 100 % 19 12:13 PM 141 / 95 % Procedural Medications Time Medication Dose Units Method Given By 11:26 AM Oxygen 2 L/min nasal cannula Susan Pollard RN 11:45 AM Oxygen 2 L/min nasal cannula Susan Pollard RN 11:45 AM Versed 2 mg Intravenous Susan Pollard RN 11:47 AM Oxygen 4 L/min nasal cannula Susan Pollard RN 11:57 AM Lidocaine 2% 10 ml Subcutaneous Anthony Viera MD, [facility] ASA Classification: CLASS III- Severe systemic disease (i.e. prior AMI, diabetes with vascular complications, morbid obesity) Levi Score Preprocedure Postprocedure Activity 2- Moves 4 extremities sustained head lift Activity Circulation 2- SBP +/= 20 points of pre-anesthetic level Circulation Consciousness 2- Awake and alert oriented x 3 Consciousness O2 Saturation 2- Able to maintain O2 satruation of 92% on room air O2 Saturation Respiratory 2- Able to deep breathe and cough well Respiratory Total Score 10 Total Score Contrast Agent: Isovue Diagnostic Contrast: 40 ml Total Contrast: 40 ml Fluoro Dose: 243 mGy Procedure Log Time Note Enter By 11:24 AM CathStat 11:25 AM Pt arrived to chemical processing laborer 2 at 11:25 scoates 11:25 AM Hyacinth Smith RN Position: Monitor Time in: :25 scoates 11:25 AM Susan Pollard RN Position: Bench Chemist Time in: 11:25 scoates 11:25 AM Citlalli Loja RT (R) Position: Scrub Time in: 11:25 scoates 11:25 AM Patient charges- Angio tray pack, Navilyst 3mm J, Pulse Oximetry and ACIST tubing and transducer scoates 11:25 AM Case Delayed No, inpatient scoates : AM Time: Oxygen on at 2 L/min per nasal cannula by Susan Pollard RN scoates : AM Time: Patient comfortable and pain free: Yes scoates 11:26 AM Time: LOC: 5 = Fully awake and oriented or at pre-proc level scoates 11:42 AM Vitals capture started with the following parameters, Patient=Adult, Interval=5 min, Initial Rcjpcfin=633 mmHg, Deflation Rate=5 mmHg, Cuff placed on Right Arm 11:43 AM HR=66 bpm, HKVZ=475/88 mmhg, SpO2=93.0 %, Resp=18 B/min 11:43 AM Time: :LOC: 4 = Oriented but drowsy scoates 11:44 AM Time: 11:26 Patient comfortable and pain free: Yes scoates 11:44 AM Physician arrived : scoates 11: AM Meet and greet completed scoates : AM Sign in performed according to hospital policy. scoates 11:44 AM Procedure start : scoates :45 AM Time: :45 Oxygen on at 2 L/min per nasal cannula by Susan Pollard RN scoates :45 AM Time: :45 Versed 2 mg Intravenous Given by Susan Pollard RN scoates 11:45 AM Hair removed from procedure site in procedure lab using clippers. Bilateral groin prepped with Chloraprep by Susan Pollard RN, safety strap applied then patient was draped. Skin intact. scoates 11:47 AM Time: 11:47 Oxygen on at 4 L/min per nasal cannula by Susan Pollard RN scoates 11:47 AM Clinical Presentation: Non-STEMI scoates 11:48 AM HR=75 bpm, RPJB=441/82 mmhg, SpO2=92.0 %, Resp=19 B/min, Comment=nsr 11:48 AM ASA Class CLASS III- Severe systemic disease (i.e. prior AMI, diabetes with vascular complications, morbid obesity) scoates 11:53 AM HR=69 bpm, LCNT=842/81 mmhg, SpO2=98.0 %, Resp=14 B/min, Comment=nsr 11:57 AM Time out performed according to hospital policy scoates 11:58 AM HR=74 bpm, TJNF=066/84 mmhg, SpO2=99.0 %, Resp=16 B/min, Comment=nsr 11:58 AM Time: 11:57 10 ml Lidocaine 2% to right groin Subcutaneous Given by Anthony Viera MD, [facility] scoates 11:59 AM Time: 44 Patient comfortable and pain free: Yes scoates 11:59 AM Time: :43LOC: 4 = Oriented but drowsy scoates 12:00 PM Micro-Introducer Kit utilized for sheath placement scoates 12:00 PM Access obtained by percutaneous puncture. 6Fr 10cm Terumo [place] sheath placed in right Femoral artery. [id number] scoates 12:01 PM 6Fr FR 4 catheter inserted over the wire DNC scoates 12:01 PM Catheter selectively placed in left ventricle scoates 12:01 PM Bolus angiogram of left Ventricle complete: 10mls hand injected scoates 12:02 PM Recorded Pressure: LV, HR=72, Condition=Condition 1 (Left Ventricle) LV 154/8/13 12:02 PM Recorded Pressure: LV, Ao, HR=72, Condition=Condition 1 (Left Ventricle) LV 141/0/12, (Aorta) Ao 141/62/100 12:02 PM RCA angiography performed in multiple views. scoates 12:02 PM Recorded Pressure: Ao, HR=74, Condition=Condition 1 (Aorta) Ao 123/56/83 12:03 PM HR=75 bpm, EQKR=469/82 mmhg, SpO2=99.0 %, Resp=17 B/min, Comment=nsr 12:03 PM Coronary Dominance: right scoates 12:03 PM Catheter removed scoates 12:04 PM 6Fr FL 4 catheter inserted over the wire DNC scoates 12:04 PM Lesion found in Mid RCA. Pre Stenosis: 30 Pre JACQUIE Flow: scoates 12:04 PM Lesion found in Right PDA. Pre Stenosis: 30 Pre JACQUIE Flow: scoates 12:04 PM Recorded Pressure: Ao, HR=76, Condition=Condition 1 (Aorta) Ao 143/74/103 12:04 PM LCA angiography performed in multiple views. scoates 12:06 PM Lesion found in Mid LAD. Pre Stenosis: 40 Pre JACQUIE Flow: scoates 12:06 PM Bolus angiogram of right Femoral complete: 5mls hand injected scoates 12:06 PM Catheter removed scoates 12:07 PM Procedure completed at 12:07 scoates 12:07 PM Sign out completed: Radiation Dose 243 mGy Fluoro Time: 1.8 Isovue 370 - 200ml contrast 40 ml given by Anthony Viera MD, [facility]. Complications: NoneCardiac Rehab Consult needed: NoConfirmed administered medications: Yes scoates 12:07 PM Isovue 370 - 200ml,1 Bottle(s) used. scoates 12:07 PM Arterial sheath pulled, Angio-seal closure device used and was Successful [id number] S/N. scoates 12:07 PM Post ECG NSR scoates 12:07 PM Post Blood Pressure 150/82 scoates 12:07 PM 12:07 Post Pulses Bilateral DP & PT 2+ scoates 12:08 PM Information taught Cardiac Cath and Angioseal scoates 12:08 PM Education needs Procedure, Plan of Care, and Responsibilities of Patient in Care scoates 12:08 PM Learning barriers :None scoates 12:08 PM Education Methods Verbal scoates 12:08 PM HR=79 bpm, RYKO=367/92 mmhg, WjO2=347.0 %, Resp=19 B/min, Comment=nsr 12:08 PM Education evaluation Able to repeat information scoates 12:08 PM Site status No bleeding/hematoma - Rt Groin as reported by Citlalli Loja RT (R) at 12:08 scoates 12:08 PM Opsite applied scoates 12:08 PM Plavix, Effient or Brilinta given No scoates 12:08 PM Delay to floor No scoates 12:08 PM Family placed in consult room. scoates 12:13 PM Complications: None scoates 12:13 PM Fluoro Time: 1.8 scoates 12:13 PM Isovue 370 - 200ml contrast 40 ml given by Anthony Viera MD, [facility]. scoates 12:13 PM GIAO=044/95 mmhg 12:13 PM Vitals capture stopped. 12:14 PM Time: 11:59LOC: 4 = Oriented but drowsy scoates 12:14 PM Time: 11:59 Patient comfortable and pain free: Yes scoates 12:19 PM Patient out of room: 12:19 scoates 12:21 PM Report given to Alberta MOYER Pt taken to 2A Room #44. 12:21 scoates Complications Complication None None Hemodynamics Pressures Site Systolic/A Wave Diastolic/V Wave Mean LV 154 8 13 LV 141 0 12 AO 141 62 100 AO 123 56 83 AO 143 74 103 Post Procedure Information Blood Pressure: 150/82 mmHg Rhythm: NSR Post procedural instructions were given Closure Device Time Device Success/Fail 08/13/2017 12:14:00 PM Angio-seal Evolution Successful Site Checks Time Location Status Staff Sheath In? Note 12:08 PM Rt Groin No bleeding/hematoma Citlalli Loja RT (R) Pulses Time Site Pre-Procedure Post-Procedure Note 08/13/2017 11:47:00 AM Bilateral DP & PT 2+ 08/13/2017 11:47:00 AM Bilateral radial 2+ 12:07:00 PM Bilateral DP & PT 2+ Updated by Hyacinth Peters RN on 08/13/2017 12:22:45 PM electronically signed on 08/13/2017 12:24:25 PM with status of Final
--- NOTE | 2017-08-13 13:55 | Event Note ---
Date of Encounter: 08/13/17 Time of Encounter: 13:46 - Cardiology Event Note Ms Davila is 52 year old female had a left heart cath today which showed mild two vessel coronary artery disease, LV is normal and LVEF 65%. - No emergent cardiac services needed as this time. Patient will be followed up in cardiac clinic. - cardiology will sign off.
[2017-08-13] MEDS: MethylPREDNISolone 40 MG/ML VIAL IVP SCH (21:23)
[2017-08-14] MEDS: Ipratropium/Albuterol Neb 3 ML IH SCH ×3 (03:32→11:08)
[2017-08-14] MEDS: MethylPREDNISolone 40 MG/ML VIAL IVP SCH ×2 (05:51→11:59)
[2017-08-14] MEDS: levoFLOXacin 500 MG TABLET PO SCH (09:10)
[2017-08-14] MEDS: Insulin LISPRO 300 UNITS/3 ML VIAL SQ SCH ×2 (09:10→12:00)
[2017-08-14] MEDS: Aspirin 81 MG TAB.CHEW PO SCH (09:11)
[2017-08-14] MEDS: Lisinopril 20 MG TABLET PO SCH (09:11)
[2017-08-14] MEDS: Nicotine 21 MG PATCH.TD24 TD SCH (09:11)
[2017-08-14 10:34] VITALS: BP 127/80
--- NOTE | 2017-08-14 13:01 | Discharge Summary ---
Date of Encounter: 08/15/17 Time of Encounter: 12:56 - Discharge Diagnosis (1) COPD exacerbation Priority: Secondary Status: Acute (2) NSTEMI (non-ST elevated myocardial infarction) Priority: Primary Status: Acute (3) Tobacco abuse Priority: Secondary Status: Chronic (4) Hyperglycemia Priority: Secondary Status: Acute - Discharge Medications Prescriptions: Ipratropium/Albuterol Neb [Duoneb] 3 ml IH [id number] #240 inhsol Nitroglycerin 0.4 mg SL Q5MIN PRN #25 tab.subl PRN Reason: Chest Pain Aspirin 81 mg PO DAILY #90 tab.chew Atorvastatin [Lipitor] 40 mg PO HS #90 tablet Docusate [Colace] 100 mg PO BID PRN #60 capsule PRN Reason: Constipation GuaiFENesin ER [Mucinex] 1,200 mg PO BID #20 tbbp.12hr levoFLOXacin [Levaquin] 500 mg PO DAILY #7 tablet Metoprolol [Lopressor] 12.5 mg PO BID #90 tablet Nicotine Patch [Nicoderm] 21 mg TD DAILY #30 patch.td24 PredniSONE [Deltasone] 40 mg PO DAILY #10 tablet Home Medications: Lisinopril [Zestril] 20 mg PO DAILY 08/11/17 [History] Aspirin 81 mg PO DAILY #90 tab.chew 08/14/17 [Rx] Atorvastatin [Lipitor] 40 mg PO HS #90 tablet 08/14/17 [Rx] Docusate [Colace] 100 mg PO BID PRN #60 capsule 08/14/17 [Rx] GuaiFENesin ER [Mucinex] 1,200 mg PO BID #20 tbbp.12hr 08/14/17 [Rx] Ipratropium/Albuterol Neb [Duoneb] 3 ml IH [id number] #240 inhsol 08/14/17 [Rx] Metoprolol [Lopressor] 12.5 mg PO BID #90 tablet 08/14/17 [Rx] Nicotine Patch [Nicoderm] 21 mg TD DAILY #30 patch.td24 08/14/17 [Rx] Nitroglycerin 0.4 mg SL Q5MIN PRN #25 tab.subl 08/14/17 [Rx] PredniSONE [Deltasone] 40 mg PO DAILY #10 tablet 08/14/17 [Rx] levoFLOXacin [Levaquin] 500 mg PO DAILY #7 tablet 08/14/17 [Rx] Allergies/Adverse Reactions: 3 Allergy/AdvReac Type Severity Reaction Status Date / Time No Known Allergies Allergy Verified 08/11/17 14:04 Procedures/tests Complete & Pending: Procedures Performed prior 72 hours Category Date Time Status Left Heart Cath [CL Cardiac Catheterization] [CL] Inspector Mechanical 08/13/17 08:38 Completed Routine ECG 12 lead ECG [ECG] Routine Y 08/13/17 03:15 Completed Date of admission: 08/11/17 20:52 Primary care physician: PCP NONE Consults: 08/11/17 21:51 Consult to Treasury Manager [CONS] Routine Reason for SW Consult: PROBABLE NEED FOR HOME O2 Discharging clinician: Angel Luis Stephens Anticipated date of discharge: 08/14/17 - Patient Status Disposition: Home, Self-Care Condition: Fair Functional capacity at discharge: independent ambulation Overall status at discharge: patient is progressing back to baseline - Discharge Instructions Instructions: Metoprolol (By mouth), Decongestant/Expectorant (By mouth), Prednisone (By mouth), Aspirin (By mouth), Laxative, Stool Softeners (By mouth) , Nicotine (Absorbed through the skin), Nitroglycerin, Rapid Release (By mouth) , Atorvastatin (By mouth), Levofloxacin (By mouth), Ipratropium/Albuterol (By breathing), Myocardial Infarction (DC), Diabetes Mellitus Type 2 in Adults (DC) Follow Up With: Finesse Hollins DO [Resident] - 08/17/17 3:15 pm (please follow up as schedule...) - Diet and Activity Activity: resume usual activities as tolerated, wear oxygen at all times (Keep oxygen saturation between 90-92%) Diet: advance to your usual diet, low fat, low cholesterol Hospital course: Ms. Davila is a 52 year old female with history of COPD, patient came to urgent care was then transferred to emergency room with complaint of severe shortness of breath . shortness of breath wheezing. With chest tightness patient received multiple doses inhaler in addition to steroid. Her initial EKG reveals biphasic T waves V4 through V6 with flipped T waves in the inferior leads. She has an incomplete right bundle-branch block as well. This may be related to her severe respiratory insufficiency and long-standing COPD with possible underlying ischemia. Initial troponin 0.05 .we will start the patient on a steroid 40 mg every 6 hours in addition to aerosol treatment. Cardiology was consulted and recommended cardiac catheterization for further evaluation, cardiology recommended to start patient on heparin drip as well as aspirin beta merna. Cardiac catheter was done during hospitalization which mild two vessel coronary artery disease, LV is normal and LVEF 65. optimizing medical management recommended. I had long discussion with patient counseling about tobacco cessation counseling about different methods to help her to quit smoking. Counseling about nicotine patch, patient was given prescription of nicotine patch. Home oxygen evaluation was done for the patient, patient was candidate to have home oxygen with her multiple urgent care visit with hypoxemia. With her severe COPD . Counseling patient about deep breathing. Patient discharged home in stable condition Time spent discussing smoking cessation with patient: more than 10 minutes - Time Spent with Patient Total time spent providing and/or coordinating discharge services: Greater than 30 minutes - Constitutional Vitals: Temp Pulse Resp BP Pulse Ox 97.8 F 70 18 127/80 96 08/14/17 10:31 08/14/17 10:31 08/14/17 11:10 08/14/17 10:31 08/14/17 11:10 General appearance: Present: cooperative, A&O X 3, answers questions appropriately - Head Head exam: Present: atraumatic, normocephalic - Respiratory Respiratory exam: Present: decreased breath sounds, rales, wheezes. Absent: rhonchi Additional comments: Scattered rales and wheezing bilateral lung base - Cardiovascular Cardiovascular exam: Present: RRR, +S1, +S2. Absent: diastolic murmur, gallop, rubs, systolic murmur - GI/Abdominal GI/Abdominal exam: Present: normal bowel sounds, soft, no peritoneal signs. Absent: distended, tenderness - Extremities Exam Extremities exam: Present: warm, radial pulses palpable and symmetrical. Absent : calf tenderness, cyanotic, pedal edema - Neurological Exam Neurological exam: Present: CN II-XII intact, oriented X3, no focal deficits. Absent: pronater drift, facial droop, speech deficit - VTE Reasons for not Prescribing Prophylaxis: Not indicated-Anticoagulated or INR therapeutic
--- NOTE | 2017-08-14 14:21 | Invasive Diagnostic Lab Proc ---
Name: Ariella Davila Date of Study: 08/13/2017 Date: 1965 Ht: 66.9in Medical Record#: [id number] Age: 52 Wt: 218.26lb Gender: Female BSA: 2.1 Order #: [id number] BMI: 34.26 Physicians Procedure Physician: Giancarlo Castro DO Referring MD: Referring MD: Staff Name Position Time In Hyacinth Smith RN Monitor 11:25 AM Susan Pollard RN Mechanical Artist 11:25 AM Citlalli Loja RT (R) Scrub 11:25 AM Indications Indication Non-Stemi Procedures Performed Procedure L HRT ARTERY/VENTRICLE ANGIO MOD SED OTH PHYS/QHP 5/>YRS Pre-Procedure Checklist Informed consent is complete signed and on chart. H&P is on chart. ID band is on and ID verified with patient. Patient NPO for procedure The procedure was described for the patient and questions were answered. Blood Pressure: 137/81 ECG is on chart. Rhythm: NSR Plan of Care Patient will tolerate the procedure without complications. Adequate level of comfort will be maintained. Hemodynamics will remain stable Patient will recover from procedure without complications. Respiratory function will be maintained. Cardiac rhythm will remain stable. Patient temperature will be maintained. Patient and/or family have verbalized understanding of the procedure. Patient Education Chief Complaint/Reason for Test: Cardiac Cath Developmental Category: Adult (18-64 years) Developmentally Appropriate for Age: Yes Learning Barriers: None Education Needs: Procedure Education Method: Verbal Information Taught: Cardiac Cath Educational Evaluation: Able to repeat information Intravenous Access Time IV Size Location DC'd Fluid/Drip Rate Units RN 11:47 AM 20g 1 /" Patent On Arrival Rt Arm 0.9NaCl 25 ml/hr Susan Pollard RN Allergies No Known Allergies NKA Vital Signs Time BP (mmHg) HR (bpm) O2 Sat. RR (bpm) LOC 137 / 81 63 93 % 18 11:26 AM / % 5 = Fully awake and oriented or at pre-proc level 11:26 AM / % 4 = Oriented but drowsy 11:43 AM / % 4 = Oriented but drowsy 11:59 AM / % 4 = Oriented but drowsy 11:43 AM 159 / 88 66 93 % 18 11:48 AM 146 / 82 75 92 % 19 11:53 AM 149 / 81 69 98 % 14 11:58 AM 140 / 84 74 99 % 16 12:03 PM 150 / 82 75 99 % 17 12:08 PM 161 / 92 79 100 % 19 12:13 PM 141 / 95 % Procedural Medications Time Medication Dose Units Method Given By 11:26 AM Oxygen 2 L/min nasal cannula Susan Pollard RN 11:45 AM Oxygen 2 L/min nasal cannula Susan Pollard RN 11:45 AM Versed 2 mg Intravenous Susan Pollard RN 11:47 AM Oxygen 4 L/min nasal cannula Susan Pollard RN 11:57 AM Lidocaine 2% 10 ml Subcutaneous Giancarlo Castro DO ASA Classification: CLASS III- Severe systemic disease (i.e. prior AMI, diabetes with vascular complications, morbid obesity) Levi Score Preprocedure Postprocedure Activity 2- Moves 4 extremities sustained head lift Activity Circulation 2- SBP +/= 20 points of pre-anesthetic level Circulation Consciousness 2- Awake and alert oriented x 3 Consciousness O2 Saturation 2- Able to maintain O2 satruation of 92% on room air O2 Saturation Respiratory 2- Able to deep breathe and cough well Respiratory Total Score 10 Total Score Contrast Agent: Isovue Diagnostic Contrast: 40 ml Total Contrast: 40 ml Fluoro Dose: 243 mGy Procedure Log Time Note Enter By 11:24 AM CathStat 11:25 AM Pt arrived to laboratory engineer 2 at 11:25 scoates 11:25 AM Hyacinth Smith RN Position: Monitor Time in: 11:25 scoates 11:25 AM Susan Pollard RN Position: Mechanical Artist Time in: 11:25 scoates 11:25 AM Citlalli Loja RT (R) Position: Scrub Time in: 11:25 scoates 11:25 AM Patient charges- Angio tray pack, Navilyst 3mm J, Pulse Oximetry and ACIST tubing and transducer scoates 11:25 AM Case Delayed No, inpatient scoates : AM Time: Oxygen on at 2 L/min per nasal cannula by Susan Pollard RN scoates : AM Time: Patient comfortable and pain free: Yes scoates 11:26 AM Time: :LOC: 5 = Fully awake and oriented or at pre-proc level scoates 11:42 AM Vitals capture started with the following parameters, Patient=Adult, Interval=5 min, Initial Suaswfcd=982 mmHg, Deflation Rate=5 mmHg, Cuff placed on Right Arm 11: AM HR=66 bpm, GWXX=608/88 mmhg, SpO2=93.0 %, Resp=18 B/min 11:43 AM Time: :LOC: 4 = Oriented but drowsy scoates :44 AM Time: 11:26 Patient comfortable and pain free: Yes scoates 11:44 AM Physician arrived : scoates : AM Meet and elizabeth completed scoates : AM Sign in performed according to hospital policy. scoates 11:44 AM Procedure start : scoates : AM Time: :45 Oxygen on at 2 L/min per nasal cannula by Susan Pollard RN scoates :45 AM Time: :45 Versed 2 mg Intravenous Given by Susan Pollard RN scoates 11:45 AM Hair removed from procedure site in procedure lab using clippers. Bilateral groin prepped with Chloraprep by Susan Pollard RN, safety strap applied then patient was draped. Skin intact. scoates 11:47 AM Time: 11:47 Oxygen on at 4 L/min per nasal cannula by Susan Pollard RN scoates 11:47 AM Clinical Presentation: Non-STEMI scoates 11:48 AM HR=75 bpm, MJLX=395/82 mmhg, SpO2=92.0 %, Resp=19 B/min, Comment=nsr 11:48 AM ASA Class CLASS III- Severe systemic disease (i.e. prior AMI, diabetes with vascular complications, morbid obesity) scoates 11:53 AM HR=69 bpm, QBXD=762/81 mmhg, SpO2=98.0 %, Resp=14 B/min, Comment=nsr 11:57 AM Time out performed according to hospital policy scoates 11:58 AM HR=74 bpm, XZUI=183/84 mmhg, SpO2=99.0 %, Resp=16 B/min, Comment=nsr 11:58 AM Time: 11:57 10 ml Lidocaine 2% to right groin Subcutaneous Given by Giancarlo Castro DO scoates 11:59 AM Time: 44 Patient comfortable and pain free: Yes scoates 11:59 AM Time: :43LOC: 4 = Oriented but drowsy scoates 12:00 PM Micro-Introducer Kit utilized for sheath placement scoates 12:00 PM Access obtained by percutaneous puncture. 6Fr 10cm Terumo [place] sheath placed in right Femoral artery. [id number] scoates 12:01 PM 6Fr FR 4 catheter inserted over the wire DNC scoates 12:01 PM Catheter selectively placed in left ventricle scoates 12:01 PM Bolus angiogram of left Ventricle complete: 10mls hand injected scoates 12:02 PM Recorded Pressure: LV, HR=72, Condition=Condition 1 (Left Ventricle) LV 154/8/13 12:02 PM Recorded Pressure: LV, Ao, HR=72, Condition=Condition 1 (Left Ventricle) LV 141/0/12, (Aorta) Ao 141/62/100 12:02 PM RCA angiography performed in multiple views. scoates 12:02 PM Recorded Pressure: Ao, HR=74, Condition=Condition 1 (Aorta) Ao 123/56/83 12:03 PM HR=75 bpm, ZPQR=622/82 mmhg, SpO2=99.0 %, Resp=17 B/min, Comment=nsr 12:03 PM Coronary Dominance: right scoates 12:03 PM Catheter removed scoates 12:04 PM 6Fr FL 4 catheter inserted over the wire DNC scoates 12:04 PM Lesion found in Mid RCA. Pre Stenosis: 30 Pre JACQUIE Flow: scoates 12:04 PM Lesion found in Right PDA. Pre Stenosis: 30 Pre JACQUIE Flow: scoates 12:04 PM Recorded Pressure: Ao, HR=76, Condition=Condition 1 (Aorta) Ao 143/74/103 12:04 PM LCA angiography performed in multiple views. scoates 12:06 PM Lesion found in Mid LAD. Pre Stenosis: 40 Pre JACQUIE Flow: scoates 12:06 PM Bolus angiogram of right Femoral complete: 5mls hand injected scoates 12:06 PM Catheter removed scoates 12:07 PM Procedure completed at 12:07 scoates 12:07 PM Sign out completed: Radiation Dose 243 mGy Fluoro Time: 1.8 Isovue 370 - 200ml contrast 40 ml given by Anthony Viera MD, [facility]. Complications: NoneCardiac Rehab Consult needed: NoConfirmed administered medications: Yes scoates 12:07 PM Isovue 370 - 200ml,1 Bottle(s) used. scoates 12:07 PM Arterial sheath pulled, Angio-seal closure device used and was Successful [id number] S/N. scoates 12:07 PM Post ECG NSR scoates 12:07 PM Post Blood Pressure 150/82 scoates 12:07 PM 12:07 Post Pulses Bilateral DP & PT 2+ scoates 12:08 PM Information taught Cardiac Cath and Angioseal scoates 12:08 PM Education needs Procedure, Plan of Care, and Responsibilities of Patient in Care scoates 12:08 PM Learning barriers :None scoates 12:08 PM Education Methods Verbal scoates 12:08 PM HR=79 bpm, OSNM=455/92 mmhg, SwQ3=422.0 %, Resp=19 B/min, Comment=nsr 12:08 PM Education evaluation Able to repeat information scoates 12:08 PM Site status No bleeding/hematoma - Rt Groin as reported by Citlalli Loja RT (R) at 12:08 scoates 12:08 PM Opsite applied scoates 12:08 PM Plavix, Effient or Brilinta given No scoates 12:08 PM Delay to floor No scoates 12:08 PM Family placed in consult room. scoates 12:13 PM Complications: None scoates 12:13 PM Fluoro Time: 1.8 scoates 12:13 PM Isovue 370 - 200ml contrast 40 ml given by Giancarlo Casrto DO scoates 12:13 PM IKMU=423/95 mmhg 12:13 PM Vitals capture stopped. 12:14 PM Time: 11:59LOC: 4 = Oriented but drowsy scoates 12:14 PM Time: 11:59 Patient comfortable and pain free: Yes scoates 12:19 PM Patient out of room: 12:19 scoates 12:21 PM Report given to Alberta MOYER Pt taken to 2A Room #44. 12:21 scoates Equipment Used Size Length Diameter Item Category Angio tray pack Other Micro-Introducer Kit Other Terumo [place] sheath Isovue 370- 200ml Contrast Angio-seal Evolution Sealant Complications Complication None None Hemodynamics Pressures Site Systolic/A Wave Diastolic/V Wave Mean LV 154 8 13 LV 141 0 12 AO 141 62 100 AO 123 56 83 AO 143 74 103 Post Procedure Information Blood Pressure: 150/82 mmHg Rhythm: NSR Post procedural instructions were given Closure Device Time Device Success/Fail 08/13/2017 12:14:00 PM Angio-seal Evolution Successful Site Checks Time Location Status Staff Sheath In? Note 12:08 PM Rt Groin No bleeding/hematoma Citlalli Loja RT (R) Pulses Time Site Pre-Procedure Post-Procedure Note 08/13/2017 11:47:00 AM Bilateral DP & PT 2+ 08/13/2017 11:47:00 AM Bilateral radial 2+ 12:07:00 PM Bilateral DP & PT 2+ Updated by Citlalli Mays RT (R) on 08/14/2017 2:14:34 PM Citlalli Mays RT electronically signed on 08/14/2017 2:15:03 PM with status of Final
[2017-08-15] MEDS ORDERED: *HR* Enoxaparin 40 MG/0.4 ML SYRINGE SQ SCH (06:00)
== END 2017-08-14 14:27 | disposition home or self-care (01) | DRG 190 ==
LOC: EMEROO 13:57 → 2ANU 13:57 → SUATTDRO 20:52
PROVIDERS: ADMIT Family Medicine; ATTEND Internal Medicine

== ENCOUNTER 2018-01-26 16:12 | Inpatient (IN) ==
[2018-01-26] MEDS ORDERED: methylPREDNISolone 125 MG/2 ML VIAL IVP ONE ×2 (16:17→19:02)
[2018-01-26] MEDS ORDERED: Ipratropium/Albuterol Neb 3 ML IH ONE (16:17)
--- NOTE | 2018-01-26 16:19 | Emergency Department Note ---
Disposition Clinical Impression: Acute exacerbation of chronic obstructive airways disease Disposition: Still a Patient Condition: Good Forms: ED Satisfaction Letter SOB HPI - General Chief Complaint: ED Shortness of Breath/Dyspnea Stated Complaint: SOB/QUITA Time Seen by Provider: 01/26/18 16:16 Source: patient, EMS Mode of arrival: EMS Limitations: no limitations Nursing Notes Reviewed: Yes Vital Signs Reviewed: Yes - History of Present Illness 52-year-old female history of COPD and CHF on 6 L home oxygen supplementation presents to the emergency department for shortness of breath. Patient presents via EMS hypoxic 84%. Patient states over the past 4 days she is gradually got more sure breath especially with exertion. She does have a productive cough with congestion. Denies any fevers, nausea, vomiting, leg swelling, or urinary symptoms. Reports increase use of inhalers. No recent hospitalization within the last 3 months. No recent antibiotic or steroid use.currently receiving DuoNeb treatment. Will treat her for COPD exacerbation versus CHF given history. Possible pneumonia will obtain chest x-ray. She is wheezing on examination she continues to have respiratory distress may consider BiPAP. Pt Subjective Complaint: shortness of breath, cough - Related Data Home Medications Medication Instructions Recorded Confirmed Lisinopril [Zestril] 20 mg PO DAILY 08/11/17 08/11/17 Previous Rx's Medication Instructions Recorded Aspirin 81 mg PO DAILY #90 tab.chew 08/14/17 Atorvastatin [Lipitor] 40 mg PO HS #90 tablet 08/14/17 Docusate [Colace] 100 mg PO BID PRN #60 capsule 08/14/17 GuaiFENesin ER [Mucinex] 1,200 mg PO BID #20 tbbp.12hr 08/14/17 Ipratropium/Albuterol Neb [Duoneb] 3 ml IH [id number] #240 inhsol 08/14/17 Metoprolol [Lopressor] 12.5 mg PO BID #90 tablet 08/14/17 Nicotine Patch [Nicoderm] 21 mg TD DAILY #30 patch.td24 08/14/17 Nitroglycerin 0.4 mg SL Q5MIN PRN #25 tab.subl 08/14/17 PredniSONE [Deltasone] 40 mg PO DAILY #10 tablet 08/14/17 levoFLOXacin [Levaquin] 500 mg PO DAILY #7 tablet 08/14/17 Benzonatate [Tessalon] 100 mg PO TID #15 capsule 09/17/17 PredniSONE [Deltasone] 20 mg PO DAILY #12 tablet 09/17/17 levoFLOXacin [Levaquin] 500 mg PO DAILY #10 tablet 09/17/17 Allergies Allergy/AdvReac Type Severity Reaction Status Date / Time No Known Allergies Allergy Verified 09/17/17 11:51 All systems ED: reviewed and negative except as stated. Review of Systems: As Per HPI Constitutional: Denies: fever, chills ENT ED: Reports: congestion Cardiovascular: Reports: chest pain Respiratory: Reports: cough, dyspnea, wheezes Gastrointestinal: Denies: abdominal pain, nausea, vomiting Genitourinary: Denies: urgency, dysuria Musculoskeletal: Denies: back pain Integumentary: Denies: rash, abrasion Neurological: Denies: headache Past Medical History - Past Medical History Attestation: Yes The following information was validated with the patient. Source: patient Medical history: Reports: COPD Surgical history: Reports: cholecystectomy Psychiatric history: Reports: depression - Social History Smoking Status: Current every day smoker Smokeless Tobacco Status: No Alcohol use: Reports: none Drug use: Reports: none Physical Exam - General Limitations: no limitations General appearance: alert, in distress (respiratory) - Head Head exam: atraumatic, normocephalic, normal inspection - Eye Eye exam: Present: normal appearance, PERRL, EOMI - ENT ENT exam: normal exam, normal oropharynx, mucous membranes moist - Neck Neck exam: Present: normal inspection, full ROM, trachea midline - Chest Chest inspection: Present: normal inspection, symmetric chest wall rise - Respiratory Respiratory exam: Present: respiratory distress, wheezes, accessory muscle use, prolonged expiratory phase - Cardiovascular Cardiovascular exam: Present: regular rate, normal rhythm, normal heart sounds - Abdominal Exam Abdominal exam: Present: soft, Non-Tender, normal bowel sounds. Absent: tenderness, distention, guarding, rebound, rigidity - Extremities Exam Extremities exam: Present: normal inspection, full ROM, normal capillary refill. Absent: tenderness, pedal edema, calf tenderness - Back Exam Back exam: Present: normal inspection, full ROM. Absent: tenderness, CVA tenderness (R), CVA tenderness (L) - Neurological Exam Neurological exam: Present: alert, oriented X3 - Psychiatric Psychiatric exam: Present: normal affect, normal mood - Skin Skin exam: Present: warm, dry, intact, normal color. Absent: rash, cyanosis, diaphoresis Course Course Narrative: 52-year-old female presents with dyspnea of 4 days. Reports of congestion and cough. n examination patient is in mild respiratory distress with prolonged expiratory phase. Wheezing bilaterally. Suspect COPD exacerbation. DuoNeb treatments and steroids. Will empirically treated with Levaquin. Chest x-ray labs pending. Final disposition pending results. Suspect likely admission. See my ED attendings note for final disposition and course. Vital Signs O2 Sat by Pulse Oximetry 94 01/26/18 16:26 Temperature 98.3 F 01/26/18 16:31 Pulse Rate 112 01/26/18 16:31 Respiratory Rate 20 01/26/18 16:56 Blood Pressure 146/91 01/26/18 16:31 O2 Sat by Pulse Oximetry 94 01/26/18 16:56 Oxygen Delivery Oxygen Delivery Nasal Cannula Shortness of Breath/Dyspnea - MDM Narrative Medical decision making narrative: Patient was discussed with my attending physician who agrees with ED management and final disposition. They independently evaluated the patient. Please refer to their attestation to this encounter for additional information. This note was generated by [employer] voice recognition software and as a result grammatical or spelling errors may occur using this program. - Differential Diagnosis Likely: acute exacerbation of chronic obstructive airways disease, congestive heart failure, pneumonia - Medical Records Medical records reviewed: Yes I reviewed the patient's medical records. - Lab Data Lab results reviewed: Yes I reviewed the patient's lab results. Result diagrams: 01/26/18 16:24 Lab Results 01/26/18 Range/Units 16:24 WBC 10.8 (4.3-11.1) K/mcL RBC 5.32 H (3.82-4.97) M/mcL Hgb 17.0 H (11.5-15.4) g/dL Hct 51.9 H (35.3-44.9) % MCV 97.6 (83.0-100.0) fL MCH 32.0 (28.0-33.3) pg MCHC 32.8 (31.6-35.5) g/dL RDW 12.9 (11.5-14.5) % Plt Count 253 (140-400) K/mcL MPV 9.9 (9.4-12.4) fL Immature Gran % 0.2 (0-4) % Seg Neutrophils % 71.8 % Lymphocytes % 16.7 % Monocytes % 10.1 % Eosinophils % 0.6 % Basophils % 0.6 % Neutrophils # 7.8 (1.6-8.9) K/mcL Lymphocytes # 1.8 (0.6-4.6) K/mcL Monocytes # 1.1 (0.0-1.3) K/mcL Eosinophils # 0.1 (0.0-0.6) K/mcL Basophils # 0.1 (0.0-0.2) K/mcL - Radiology Data Radiology results reviewed: Yes I reviewed the patient's radiology results. Chest X-Ray 01/26/18 16:17 IMPRESSION: No change from prior examination. No acute consolidation. D/ /26/2018 16:58:06 Jhonathan Lombardi MD / [facility] Interpreting Provider: Jhonathan Lombardi MD - EKG Data EKG attestation: Yes I reviewed and interpreted this EKG. EKG results narrative: EKG performed 1628 sinus tachycardia 115 beats per minute, short [place] interval 100 , is likely rate dependent ST depression seen and the lateral leads. No ST elevation. Signs of left atrial enlargement in V1. Other intervals within normal limits. Compared to prior EKG performed 08/13/2017 which shows T-wave inversionsin the inferior and septal leads. No acute ischemic changes. Attestation Statement - Attestation Attestation: I, Jasper Oswald DO, examined this patient [id number] and my medical decision-making was reviewed with Jesu Jimenez DO , Resident Physician. I agree with the documented findings, disposition and treatment plan as described except to the extent set forth below. Please see my progress notes for details.
[2018-01-26 16:35] LABS: Basophils # 0.1 K/mcL (0.0-0.2); Basophils % 0.6 %; Eosinophils # 0.1 K/mcL (0.0-0.6); Eosinophils % 0.6 %; Hematocrit 51.9 % (35.3-44.9); Immature Granulocytes % 0.2 % (0-4); Lymphocytes # 1.8 K/mcL (0.6-4.6); Lymphocytes % 16.7 %; Mean Corpuscular HGB Conc 32.8 g/dL (31.6-35.5); Mean Corpuscular Volume 97.6 fL (83.0-100.0); Mean Platelet Volume 9.9 fL (9.4-12.4); Monocytes # 1.1 K/mcL (0.0-1.3); Monocytes % 10.1 %; Neutrophils # 7.8 K/mcL (1.6-8.9); Platelet Count 253 K/mcL (140-400); Red Blood Count 5.32 M/mcL (3.82-4.97); Red Cell Distribution Width 12.9 % (11.5-14.5); Segmented Neutrophils % 71.8 %
[2018-01-26] MEDS ORDERED: Levofloxacin 750 MG/150 ML 750 MG/150 ML BAG IVPB ONE (16:42)
--- NOTE | 2018-01-26 16:42 | Emergency Department Note ---
Disposition Clinical Impression: Acute exacerbation of chronic obstructive airways disease Disposition: Admitted As Inpatient Condition: Good Referrals: Finesse Hollins DO [Resident] - Forms: ED Satisfaction Letter Time of Disposition: 18:18 General Adult HPI - General Chief complaint: ED Shortness of Breath/Dyspnea Stated complaint: SOB/QUITA Time Seen by Provider: 01/26/18 16:16 Source: patient, EMS Mode of arrival: EMS Limitations: no limitations - History of Present Illness Pain Scale: 2 - Related Data Home Medications Medication Instructions Recorded Confirmed Albuterol Sulfate [Proair Hfa] 2 puff IH Q4H 01/26/18 01/26/18 BuPROPion SR (12 HR) [Wellbutrin 150 mg PO BID 01/26/18 01/26/18 SR] Furosemide [Lasix] 20 mg PO DAILY 01/26/18 01/26/18 Mometasone/Formoterol [Dulera 200 1 puff IH DAILY 01/26/18 01/26/18 Mcg/5 Mcg Inhaler] Oxygen 1 each .ROUTE AD 01/26/18 01/26/18 Sertraline [Zoloft] 50 mg PO BID 01/26/18 01/26/18 Umeclidinium [place] [Incruse 1 puff IH DAILY 01/26/18 01/26/18 Ellipta] Previous Rx's Medication Instructions Recorded Aspirin 81 mg PO DAILY #90 tab.chew 08/14/17 Atorvastatin [Lipitor] 40 mg PO HS #90 tablet 08/14/17 Ipratropium/Albuterol Neb [Duoneb] 3 ml IH [id number] #240 inhsol 08/14/17 Metoprolol [Lopressor] 12.5 mg PO BID #90 tablet 08/14/17 Nitroglycerin 0.4 mg SL Q5MIN PRN #25 tab.subl 08/14/17 Allergies Allergy/AdvReac Type Severity Reaction Status Date / Time No Known Allergies Allergy Verified 01/26/18 17:40 Constitutional: Denies: fever, chills ENT ED: Reports: congestion Cardiovascular: Reports: chest pain Respiratory: Reports: cough, dyspnea, wheezes Gastrointestinal: Denies: abdominal pain, nausea, vomiting Genitourinary: Denies: urgency, dysuria Musculoskeletal: Denies: back pain Integumentary: Denies: rash, abrasion Neurological: Denies: headache Past Medical History - Past Medical History Medical history: Reports: COPD Surgical history: Reports: cholecystectomy Psychiatric history: Reports: depression - Social History Smoking Status: Current every day smoker Smokeless Tobacco Status: No Alcohol use: Reports: none Drug use: Reports: none Physical Exam - General Limitations: no limitations General appearance: alert, in distress (respiratory) Course Vital Signs O2 Sat by Pulse Oximetry 94 01/26/18 16:26 Temperature 98.3 F 01/26/18 16:31 Pulse Rate 112 01/26/18 16:31 Respiratory Rate 20 01/26/18 18:04 Blood Pressure 146/91 01/26/18 16:31 O2 Sat by Pulse Oximetry 94 01/26/18 18:04 Oxygen Delivery Oxygen Delivery Nasal Cannula Medical Decision Making - Lab Data Result diagrams: 01/26/18 16:24 01/26/18 16:24 Lab Results 01/26/18 01/26/18 01/26/18 Range/Units 16:24 16:24 16:24 WBC 10.8 (4.3-11.1) K/mcL RBC 5.32 H (3.82-4.97) M/mcL Hgb 17.0 H (11.5-15.4) g/dL Hct 51.9 H (35.3-44.9) % MCV 97.6 (83.0-100.0) fL MCH 32.0 (28.0-33.3) pg MCHC 32.8 (31.6-35.5) g/dL RDW 12.9 (11.5-14.5) % Plt Count 253 (140-400) K/mcL MPV 9.9 (9.4-12.4) fL Immature Gran % 0.2 (0-4) % Seg Neutrophils % 71.8 % Lymphocytes % 16.7 % Monocytes % 10.1 % Eosinophils % 0.6 % Basophils % 0.6 % Neutrophils # 7.8 (1.6-8.9) K/mcL Lymphocytes # 1.8 (0.6-4.6) K/mcL Monocytes # 1.1 (0.0-1.3) K/mcL Eosinophils # 0.1 (0.0-0.6) K/mcL Basophils # 0.1 (0.0-0.2) K/mcL Sodium 140 (136-145) mEq/L Potassium 3.7 (3.5-5.1) mEq/L Chloride 96 L (98-107) mEq/L Carbon Dioxide 36 H (23-29) mEq/L BUN 7 (6-20) mg/dL Creatinine 0.53 L (0.60-1.20) mg/dL Est GFR ( Amer) > 60 (> 60) Est GFR (Non-Af Amer) > 60 (> 60) BUN/Creatinine Ratio 13 (6-26) Glucose 161 H (70-105) mg/dL Calculated Osmolality 291 (280-300) Calcium 9.8 (8.6-10.3) mg/dL Troponin I 0.03 (< 0.04) ng/mL B-Natriuretic Peptide 129 H (Less than 100) pg/mL Attestation Statement - Attestation Attestation: I, Jasper Oswald DO, examined this patient [id number] and my medical decision-making was reviewed with Jesu Jimenez DO , Resident Physician. I agree with the documented findings, disposition and treatment plan as described except to the extent set forth below. Please see my progress notes for details. 52-year-old female presents by EMS today for evaluation of increased work of breathing shortness of breath. Patient has history of COPD. She is at home with her oxygen on and still is saturating in the low 80s. EMS provided with oxygen and transported she felt slightly better but breathing treatments were not given. Patient has had a productive cough. She has been trying to treat the symptoms at home without any relief. Patient's lungs are diffusely wheezy on exam. She does have accessory muscle use. Patient denies any chest pain she does have significant shortness of breath and productive sputum. Her abdomen is soft nontender nondistended with no guarding no rigidity no peritoneal symptoms. Patient has slight edema in the bilateral lower extremities but she does ambulate without any difficulty. Patient is concerning for COPD exacerbation and is failed outpatient management this point. IV antibiotics will be started on presenting treatments and steroids. BiPAP will be provided if needed. Patient is otherwise clinically stable. Disposition pending the full workup and treatment course and evaluation. See detailed documentation of the physical exam, medical intervention, medical decision-making and disposition in the resident physician's note. Nuchal care provider this patient's treatment course at this time. 1740 Patient still has significant tightness and wheezing on bilateral lung examination. IV access will be obtained and the remainder of the steroids will be given. Patient will have another set of breathing treatments ordered none patient will be admitted to the hospital for definitive management. 1800 Patient has full workup completed at this time. Hospitalist Dr. abreu and I reviewed the patient's presentation symptoms medical intervention. He had no other recommendations this time. Patient has been provided with antibiotics breathing treatments and steroids here. She will be admitted for further management of what appears to be upper respiratory infection/bronchitis along with COPD exacerbation. EKG labs including troponin are all reviewed and are unremarkable this time.
[2018-01-26 17:08] LABS: Troponin I 0.03 ng/mL (< 0.04)
[2018-01-26] MEDS ORDERED: Acetaminophen 325 MG TABLET PO ONE (17:14)
[2018-01-26 17:34] LABS: BUN/Creatinine Ratio 13 (6-26); Blood Urea Nitrogen 7 mg/dL (6-20); Calcium 9.8 mg/dL (8.6-10.3); Carbon Dioxide 36 mEq/L (23-29); Chloride 96 mEq/L (98-107); Glucose 161 mg/dL (70-105); Osmolality,Calculated 291 (280-300); Potassium 3.7 mEq/L (3.5-5.1); Sodium 140 mEq/L (136-145); eGFR For African Americans > 60 (> 60); eGFR For Non-African Americans > 60 (> 60)
[2018-01-26] MEDS ORDERED: Albuterol 2.5 MG/3 ML NEBULIZER IH ONE (17:44)
[2018-01-26] MEDS ORDERED: *HR* LORazepam 2 MG/ML VIAL IVP ONE (19:36)
[2018-01-26] MEDS ORDERED: Naloxone 0.4 MG/ML INJ IVP PRN (22:21)
[2018-01-26] MEDS ORDERED: Ipratropium/Albuterol Neb 3 ML IH PRN (22:47)
[2018-01-26] MEDS ORDERED: *HR* Dextrose 50 % in Water (Syg) 50 ML SYRINGE IVP PRN (22:57)
[2018-01-26] MEDS ORDERED: Dextrose Gel 15 GM/37.5 ML TUBE PO PRN ×2 (22:57)
[2018-01-26] MEDS ORDERED: D5% in Water 1,000 ML IVC PRN (22:57)
[2018-01-26] MEDS ORDERED: Nitroglycerin 0.4 MG TAB.SUBL SL PRN (22:58)
[2018-01-27] MEDS: methylPREDNISolone 125 MG/2 ML VIAL IVP SCH ×2 (00:10→05:24)
--- NOTE | 2018-01-27 02:33 | Internal Med History&Physical ---
Date of Encounter: 01/26/18 Time of Encounter: 20:00 Internal Medicine - H&P: HPI Chief complaint: Shortness of breath Admitted From: Home Plans for Post Hospital Care: Home History of present illness: Ms. Davila is a 52 year old female present to ER for shortness of breath for 3 days. Past medical history is significant for COPD, CHF, hypertension. Patient started to have shortness of breath 3 days ago. With productive cough. The with yellowish sputum. Patient denies chest pain, no fever, no nausea. In the emergency room, chest x-ray negative. Patient has wheezing. The patient was treated with antibiotic, steroid, and bronchodilator in the emergency room. Patient feels symptoms is improved after treatment. Patient was admitted as COPD exacerbation. Past Med Surg Social Fam HX - Past Medical History Medical history: COPD, hypertension Psychiatric history: depression - Past Surgical History Surgical History: cholecystectomy - Social History Smoking Status: Current every day smoker Packs per day: 1 Smokeless Tobacco Status: No Alcohol use: none Drug use: none - Family History Mother History Unknown: Yes Internal Medicine - H&P: Meds Aspirin 81 mg PO DAILY #90 tab.chew 08/14/17 [Rx] Atorvastatin [Lipitor] 40 mg PO HS #90 tablet 08/14/17 [Rx] Ipratropium/Albuterol Neb [Duoneb] 3 ml IH [id number] #240 inhsol 08/14/17 [Rx] Metoprolol [Lopressor] 12.5 mg PO BID #90 tablet 08/14/17 [Rx] Nitroglycerin 0.4 mg SL Q5MIN PRN #25 tab.subl 08/14/17 [Rx] Albuterol Sulfate [Proair Hfa] 2 puff IH Q4H 01/26/18 [History] BuPROPion SR (12 HR) [Wellbutrin SR] 150 mg PO BID 01/26/18 [History] Furosemide [Lasix] 20 mg PO DAILY 01/26/18 [History] Mometasone/Formoterol [Dulera 200 Mcg/5 Mcg Inhaler] 1 puff IH DAILY 01/26/18 [ History] Oxygen 1 each .ROUTE AD 01/26/18 [History] Sertraline [Zoloft] 50 mg PO BID 01/26/18 [History] Umeclidinium [place] [Incruse Ellipta] 1 puff IH DAILY 01/26/18 [History] 3 Allergy/AdvReac Type Severity Reaction Status Date / Time No Known Allergies Allergy Verified 01/26/18 17:40 All Systems PM: A 10-system review of systems was performed and is negative for pertinent findings except as documented above in the HPI. - Constitutional Vitals: Temp Pulse Resp BP Pulse Ox 97.8 F 110 22 130/76 96 01/26/18 22:23 01/26/18 22:23 01/27/18 00:30 01/26/18 22:23 01/27/18 00:30 General appearance: Present: mild distress, A&O X 3, answers questions appropriately - Head Head exam: Present: atraumatic, normocephalic - Eye Eye exam: Present: PERRL, conjuntiva pink, sclera anicteric Pupils: Present: PERRL - Neck Neck exam general surgery: Present: supple, trachea midline. Absent: lymphadenopathy - Respiratory Respiratory exam: Present: CTAB, wheezes (Diffuse wheezes bilaterally). Absent : accessory muscle use, rales, rhonchi - Cardiovascular Cardiovascular exam: Present: RRR, +S1, +S2. Absent: diastolic murmur, gallop, rubs, systolic murmur - GI/Abdominal GI/Abdominal exam: Present: normal bowel sounds, soft, no peritoneal signs. Absent: distended, tenderness - Extremities Exam Extremities exam: Present: warm, radial pulses palpable and symmetrical. Absent : calf tenderness, cyanotic, pedal edema - Neurological Exam Neurological exam: Present: CN II-XII intact, oriented X3, no focal deficits. Absent: pronater drift, facial droop, speech deficit - Skin Skin exam: Present: dry, intact Internal Med - H&P Results - Labs CBC & Chem 7: 01/26/18 16:24 01/26/18 16:24 - Assessment and plan (1) Hypertension Current Visit: Yes Status: Acute Assessment and plan: Continue home medications. Close monitor BP level Qualifiers: Hypertension type: essential hypertension Qualified Code(s): I10 - Essential (primary) hypertension (2) Acute exacerbation of chronic obstructive airways disease Current Visit: Yes Status: Acute Assessment and plan: Patient has history of COPD. Increased shortness of breath. Has productive cough with wheezing bilaterally. Consider COPD exacerbation. - Continue treat patient with antibiotic, steroid, and bronchodilator - Symptomatic treatment and supportive treatment with BiPAP as needed - Patient still has wheezing after treatment, will give magnesium 2 g IV. (3) DVT prophylaxis Current Visit: No Status: Acute Assessment and plan: Heparin subcutaneously (4) CHF (congestive heart failure) Current Visit: Yes Status: Acute Assessment and plan: Appears euvolemic at this point. BNP 129. Continue home medications. Qualifiers: Heart failure type: diastolic Heart failure chronicity: chronic Qualified Code(s): I50.32 - Chronic diastolic (congestive) heart failure - Time Spent With Patient Total time spent is greater than 50% in coordination of care (as documented) at patient's floor/unit and/or counseling patient:
[2018-01-27] MEDS: Ipratropium/Albuterol Neb 3 ML IH SCH ×4 (04:32→22:02)
[2018-01-27] MEDS: *HR* Heparin 5,000 UNIT/ML VIAL SQ SCH ×2 (05:24→17:44)
[2018-01-27 05:42] LABS: Basophils % 0.2 %; Hematocrit 46.7 % (35.3-44.9); Immature Granulocytes % 0.2 % (0-4); Lymphocytes # 0.7 K/mcL (0.6-4.6); Lymphocytes % 8.8 %; Mean Corpuscular HGB Conc 32.5 g/dL (31.6-35.5); Mean Corpuscular Hemoglobin 32.1 pg (28.0-33.3); Mean Corpuscular Volume 98.5 fL (83.0-100.0); Monocytes # 0.2 K/mcL (0.0-1.3); Monocytes % 2.2 %; Neutrophils # 7.2 K/mcL (1.6-8.9); Platelet Count 214 K/mcL (140-400); Red Blood Count 4.74 M/mcL (3.82-4.97); Red Cell Distribution Width 12.7 % (11.5-14.5); Segmented Neutrophils % 88.6 %
[2018-01-27 05:43] LABS: Hemoglobin 15.2 g/dL (11.5-15.4)
[2018-01-27 05:57] LABS: BUN/Creatinine Ratio 29 (6-26); Blood Urea Nitrogen 15 mg/dL (6-20); Calcium 9.4 mg/dL (8.6-10.3); Carbon Dioxide 39 mEq/L (23-29); Chloride 96 mEq/L (98-107); Glucose 223 mg/dL (70-105); Magnesium 2.4 mg/dL (1.6-2.6); Osmolality,Calculated 292 (280-300); Potassium 4.8 mEq/L (3.5-5.1); Sodium 137 mEq/L (136-145); eGFR For African Americans > 60 (> 60); eGFR For Non-African Americans > 60 (> 60)
[2018-01-27] MEDS: Aspirin 81 MG TAB.CHEW PO SCH (08:36)
[2018-01-27] MEDS: Furosemide 20 MG TABLET PO SCH (08:36)
[2018-01-27] MEDS: BuPROPion SR (12 HR) 150 MG TABLET PO SCH ×2 (08:36→21:22)
[2018-01-27] MEDS: Insulin LISPRO 300 UNITS/3 ML VIAL SQ SCH ×4 (08:44→21:22)
[2018-01-27] MEDS: [UNRECOGNIZED DRUG - OTHER] IH SCH (11:03)
[2018-01-27] MEDS: DULERA IH SCH (11:03)
[2018-01-27] MEDS: (Umeclidinium Bromide [Incruse Ellipta] 1 PUFF) IH SCH (12:47)
--- NOTE | 2018-01-27 14:28 | Internal Med Progress Note ---
<Rogelio Burrell - Last Filed: 01/27/18 14:26> Date of Encounter: 01/27/18 Time of Encounter: 10:00 - Assessment and plan (1) Acute exacerbation of chronic obstructive airways disease Current Visit: Yes Status: Acute Assessment and plan: Patient has history of COPD. Increased shortness of breath. Has productive cough with wheezing bilaterally. - Chest x-ray performed emergency department showed no acute process - Reports multiple sick contacts at home with viral respiratory infections. This is likely the exacerbating symptom - Started on Levaquin, methylprednisone 60 mg every 6 hours, and duonebs - Symptomatic treatment and supportive treatment with BiPAP as needed - Patient reports home oxygen use of 6 L Plan - Continue Levaquin day #1 - Decrease steroids to methylprednisone 40 mg every 12 hours - Continue duo nebs - Patient currently tolerating home oxygen requirement of 6 L with oxygen saturations of 94%. Continue supplemental option as needed - We will obtain respiratory panel, sputum culture, strep and Legionella antigens (2) Hypertension Current Visit: Yes Status: Acute Assessment and plan: Continue home medications. Close monitor BP level Well controlled at 120/79 Qualifiers: Hypertension type: essential hypertension Qualified Code(s): I10 - Essential (primary) hypertension (3) Diabetes mellitus Current Visit: Yes Status: Chronic Assessment and plan: - Hx of DM2. Most recent A1c of 6.7% in 2016 - BS elevated at 223 this morning however she did get IV steroids for COPD as above - SSI and ADA diet. - Decreasing steroids today, will monitor and adjust scale tomorrow if needed. Qualifiers: Diabetes mellitus type: type 2 Diabetes mellitus prison insulin use: without prison use Diabetes mellitus complication status: with unspecified complications Qualified Code(s): E11.8 - Type 2 diabetes mellitus with unspecified complications (4) DVT prophylaxis Current Visit: Yes Status: Acute Assessment and plan: Heparin subcutaneously (5) CHF (congestive heart failure) Current Visit: Yes Status: Acute Assessment and plan: Appears euvolemic at this point. BNP 129. Continue home medications. Qualifiers: Heart failure type: diastolic Heart failure chronicity: chronic Qualified Code(s): I50.32 - Chronic diastolic (congestive) heart failure - Time Spent With Patient Total time spent is greater than 50% in coordination of care (as documented) at patient's floor/unit and/or counseling patient: 25 - 35 minutes - Subjective Interval history: This note is for billing purposes this patient was admitted after midnight. Patient was seen and examined at bedside this morning. She states that her shortness of breath has improved since presentation to the emergency room. She is still experiencing some wheezing. Cough has changed from thick and green to thick and white with breathing treatments. Denies any symptoms of fevers, chills, new shortness of breath or chest pain. - Constitutional Vitals: Temp Pulse Resp BP Pulse Ox 98.2 F 79 24 129/79 91 01/27/18 11:52 01/27/18 11:52 01/27/18 11:52 01/27/18 11:52 01/27/18 11:52 General appearance: Present: mild distress, A&O X 3, answers questions appropriately Exam: Gen.: Vitals noted. No acute distress. AAOx3 HEENT: PERRL/EOMI, oropharynx clear, Normocephalic, atraumatic, MMM Cardiac: RRR, no murmur, +S1/S2 Pulmonary: Mild wheezing diffusely on auscultation, no evidence of rhonchi, rales. equal chest expansion Abdomen: soft, nontender, BS noted, no guarding, no rebound. Extremities: no BLE edema, nontender calf, no cyanosis or clubbing Neuro: A&Ox3, moves all extremities, no focal deficits Psych: Appropriate mood and behavior Internal Medicine: Result - Labs CBC & Chem 7: 01/27/18 05:02 01/27/18 05:02 Labs: Short CBC 01/27/18 Range/Units 05:02 WBC 8.2 (4.3-11.1) K/mcL Hgb 15.2 D (11.5-15.4) g/dL Hct 46.7 H (35.3-44.9) % Plt Count 214 (140-400) K/mcL Neutrophils # 7.2 (1.6-8.9) K/mcL BMP 01/27/18 05:02 Sodium 137 Potassium 4.8 D Chloride 96 L Carbon Dioxide 39 H BUN 15 Creatinine 0.52 L Glucose 223 H Calcium 9.4 Consult Discharge Plan - Plan Referrals: Finesse Hollins DO [Primary Care Provider] - <Nan Sullivan - Last Filed: 01/27/18 16:53> Date of Encounter: 01/27/18 - Assessment and plan (1) DVT prophylaxis Current Visit: Yes Status: Acute (2) Diabetes mellitus Current Visit: Yes Status: Chronic Qualifiers: Diabetes mellitus type: type 2 Diabetes mellitus meterman insulin use: without prison use Diabetes mellitus complication status: with unspecified complications Qualified Code(s): E11.8 - Type 2 diabetes mellitus with unspecified complications (3) Acute exacerbation of chronic obstructive airways disease Current Visit: Yes Status: Acute (4) Hypertension Current Visit: Yes Status: Acute Qualifiers: Hypertension type: essential hypertension Qualified Code(s): I10 - Essential (primary) hypertension (5) CHF (congestive heart failure) Current Visit: Yes Status: Acute Qualifiers: Heart failure type: diastolic Heart failure chronicity: chronic Qualified Code(s): I50.32 - Chronic diastolic (congestive) heart failure - Time Spent With Patient Total time spent is greater than 50% in coordination of care (as documented) at patient's floor/unit and/or counseling patient: - Constitutional Vitals: Temp Pulse Resp BP Pulse Ox 98.3 F 86 24 108/72 91 01/27/18 15:55 01/27/18 15:55 01/27/18 16:14 01/27/18 15:55 01/27/18 16:14 Internal Medicine: Result - Labs CBC & Chem 7: 01/27/18 05:02 01/27/18 05:02 Labs: Short CBC 01/27/18 Range/Units 05:02 WBC 8.2 (4.3-11.1) K/mcL Hgb 15.2 D (11.5-15.4) g/dL Hct 46.7 H (35.3-44.9) % Plt Count 214 (140-400) K/mcL Neutrophils # 7.2 (1.6-8.9) K/mcL BMP 01/27/18 05:02 Sodium 137 Potassium 4.8 D Chloride 96 L Carbon Dioxide 39 H BUN 15 Creatinine 0.52 L Glucose 223 H Calcium 9.4 - Attending Attestation I examined this patient and my medical decision-making was reviewed with the Resident Physician Dr. Burrell. I agree with the documented findings, disposition and treatment plan as described except to the extent set forth below. Ms. Davila 52 y/o F known COPD, chronic hypoxic resp failure pt admitted with COPD exacerbation and acute bronchitis Pt states she is feeling better now. Still has cough with yellowish expectoration Gen: A, A, O x 3 Chest : Diminishes BS b/l, moderate wheezing Heart: S1S2+ RRR no murmurs a/p 1. Acute on chronic hypoxic resp fialure 2. Acute COPD exacerbation 3. Acute bronchitis - mostly bacterial cont empirical abx start tapering IV steroids Duoneb
[2018-01-27] MEDS: MethylPREDNISolone 40 MG/ML VIAL IVP SCH (17:44)
[2018-01-27] MEDS: Levofloxacin 750 MG/150 ML 750 MG/150 ML BAG IVPB SCH (17:45)
[2018-01-28] MEDS: Ipratropium/Albuterol Neb 3 ML IH SCH ×4 (03:29→22:18)
[2018-01-28] MEDS: *HR* Heparin 5,000 UNIT/ML VIAL SQ SCH ×2 (05:19→17:16)
[2018-01-28] MEDS: MethylPREDNISolone 40 MG/ML VIAL IVP SCH ×2 (05:20→17:16)
[2018-01-28 05:53] LABS: Basophils % 0.1 %; Hematocrit 43.8 % (35.3-44.9); Hemoglobin 14.4 g/dL (11.5-15.4); Immature Granulocytes % 0.5 % (0-4); Lymphocytes # 1.4 K/mcL (0.6-4.6); Lymphocytes % 9.5 %; Mean Corpuscular HGB Conc 32.9 g/dL (31.6-35.5); Mean Corpuscular Hemoglobin 31.7 pg (28.0-33.3); Mean Corpuscular Volume 96.5 fL (83.0-100.0); Monocytes # 0.9 K/mcL (0.0-1.3); Monocytes % 5.6 %; Neutrophils # 12.7 K/mcL (1.6-8.9); Platelet Count 259 K/mcL (140-400); Red Blood Count 4.54 M/mcL (3.82-4.97); Red Cell Distribution Width 12.5 % (11.5-14.5); Segmented Neutrophils % 84.3 %
[2018-01-28 06:07] LABS: BUN/Creatinine Ratio 41 (6-26); Blood Urea Nitrogen 18 mg/dL (6-20); Calcium 9.1 mg/dL (8.6-10.3); Carbon Dioxide 37 mEq/L (23-29); Chloride 92 mEq/L (98-107); Glucose 205 mg/dL (70-105); Osmolality,Calculated 280 (280-300); Potassium 5.2 mEq/L (3.5-5.1); Sodium 131 mEq/L (136-145); eGFR For African Americans > 60 (> 60); eGFR For Non-African Americans > 60 (> 60)
[2018-01-28] MEDS: Aspirin 81 MG TAB.CHEW PO SCH (08:22)
[2018-01-28] MEDS: Furosemide 20 MG TABLET PO SCH (08:22)
[2018-01-28] MEDS: BuPROPion SR (12 HR) 150 MG TABLET PO SCH ×2 (08:22→20:33)
[2018-01-28] MEDS: Insulin LISPRO 300 UNITS/3 ML VIAL SQ SCH ×4 (08:23→20:37)
[2018-01-28] MEDS: [UNRECOGNIZED DRUG - OTHER] IH SCH (08:24)
[2018-01-28] MEDS: DULERA IH SCH (08:24)
[2018-01-28] MEDS: (Umeclidinium Bromide [Incruse Ellipta] 1 PUFF) IH SCH (08:24)
--- NOTE | 2018-01-28 11:27 | Internal Med Progress Note ---
<Rogelio Burrell - Last Filed: 01/28/18 11:25> Date of Encounter: 01/28/18 Time of Encounter: 10:20 - Assessment and plan (1) Acute exacerbation of chronic obstructive airways disease Current Visit: Yes Status: Acute Assessment and plan: Patient has history of COPD. Increased shortness of breath. Has productive cough with wheezing bilaterally. - Chest x-ray performed emergency department showed no acute process - Reports multiple sick contacts at home with viral respiratory infections. This is likely the exacerbating symptom - Started on Levaquin, methylprednisone, and duonebs - Symptomatic treatment and supportive treatment with BiPAP as needed - Patient reports home oxygen use of 6 L, currently tolerating 5 L oxygen saturation of the mid 90s - Legionella and strep antigen negative, respiratory panel pending, sputum culture no growth preliminary Plan - Continue Levaquin day #2/3 - Decrease steroids to prednisone 40 mg daily starting tomorrow, day #2 total - Continue duo nebs - Patient currently tolerating home oxygen requirement of 6 L with oxygen saturations of 94%. Continue supplemental option as needed (2) Hypertension Current Visit: Yes Status: Acute Assessment and plan: Continue home medications. Close monitor BP level Well controlled at 112/74 Qualifiers: Hypertension type: essential hypertension Qualified Code(s): I10 - Essential (primary) hypertension (3) Diabetes mellitus Current Visit: Yes Status: Chronic Assessment and plan: - Hx of DM2. Most recent A1c of 6.7% in 2017 - BS elevated at176 this morning however she did get IV steroids for COPD as above - SSI and ADA diet. - Decreasing steroids again today, will monitor and adjust scale tomorrow if needed. Qualifiers: Diabetes mellitus type: type 2 Diabetes mellitus mcc insulin use: without mcc use Diabetes mellitus complication status: with unspecified complications Qualified Code(s): E11.8 - Type 2 diabetes mellitus with unspecified complications (4) DVT prophylaxis Current Visit: Yes Status: Acute Assessment and plan: Heparin subcutaneously (5) CHF (congestive heart failure) Current Visit: Yes Status: Acute Assessment and plan: Appears euvolemic at this point. BNP 129. Continue home medications. Qualifiers: Heart failure type: diastolic Heart failure chronicity: chronic Qualified Code(s): I50.32 - Chronic diastolic (congestive) heart failure - Time Spent With Patient Total time spent is greater than 50% in coordination of care (as documented) at patient's floor/unit and/or counseling patient: 25 - 35 minutes - Subjective Interval history: Patient was seen and examined at bedside this morning. She states that her shortness of breath has improved since presentation to the emergency room. She is still experiencing some wheezing. Denies any symptoms of fevers, chills, new shortness of breath or chest pain. Overall she states she feels better - Constitutional Vitals: Temp Pulse Resp BP Pulse Ox 98.3 F 76 18 112/74 93 01/28/18 11:00 01/28/18 11:00 01/28/18 11:00 01/28/18 11:00 01/28/18 11:00 General appearance: Present: mild distress, A&O X 3, answers questions appropriately Exam: Gen.: Vitals noted. No acute distress. AAOx3 HEENT: PERRL/EOMI, oropharynx clear, Normocephalic, atraumatic, MMM Cardiac: RRR, no murmur, +S1/S2 Pulmonary: Mild wheezing present diffusely, improved from previous. equal chest expansion Abdomen: soft, nontender, BS noted, no guarding, no rebound. Extremities: no BLE edema, nontender calf, no cyanosis or clubbing Neuro: A&Ox3, moves all extremities, no focal deficits Psych: Appropriate mood and behavior Internal Medicine: Result - Labs CBC & Chem 7: 01/28/18 05:29 01/28/18 05:29 Labs: Short CBC 01/28/18 Range/Units 05:29 WBC 15.1 H D (4.3-11.1) K/mcL Hgb 14.4 (11.5-15.4) g/dL Hct 43.8 (35.3-44.9) % Plt Count 259 (140-400) K/mcL Neutrophils # 12.7 H (1.6-8.9) K/mcL BMP 01/28/18 05:29 Sodium 131 L Potassium 5.2 H Chloride 92 L Carbon Dioxide 37 H BUN 18 Creatinine 0.44 L Glucose 205 H Calcium 9.1 Consult Discharge Plan - Plan Referrals: Finesse Hollins DO [Primary Care Provider] - <Nan Sullivan - Last Filed: 01/28/18 15:07> Date of Encounter: 01/28/18 - Assessment and plan (1) DVT prophylaxis Current Visit: Yes Status: Acute (2) Diabetes mellitus Current Visit: Yes Status: Chronic Qualifiers: Diabetes mellitus type: type 2 Diabetes mellitus keno terminal operator insulin use: without keno terminal operator use Diabetes mellitus complication status: with unspecified complications Qualified Code(s): E11.8 - Type 2 diabetes mellitus with unspecified complications (3) Acute exacerbation of chronic obstructive airways disease Current Visit: Yes Status: Acute (4) Hypertension Current Visit: Yes Status: Acute Qualifiers: Hypertension type: essential hypertension Qualified Code(s): I10 - Essential (primary) hypertension (5) CHF (congestive heart failure) Current Visit: Yes Status: Acute Qualifiers: Heart failure type: diastolic Heart failure chronicity: chronic Qualified Code(s): I50.32 - Chronic diastolic (congestive) heart failure - Time Spent With Patient Total time spent is greater than 50% in coordination of care (as documented) at patient's floor/unit and/or counseling patient: - Constitutional Vitals: Temp Pulse Resp BP Pulse Ox 97.4 F L 77 18 121/78 96 01/28/18 14:45 01/28/18 14:45 01/28/18 14:45 01/28/18 14:45 01/28/18 14:45 Internal Medicine: Result - Labs CBC & Chem 7: 01/28/18 05:29 01/28/18 05:29 Labs: Short CBC 01/28/18 Range/Units 05:29 WBC 15.1 H D (4.3-11.1) K/mcL Hgb 14.4 (11.5-15.4) g/dL Hct 43.8 (35.3-44.9) % Plt Count 259 (140-400) K/mcL Neutrophils # 12.7 H (1.6-8.9) K/mcL BMP 01/28/18 05:29 Sodium 131 L Potassium 5.2 H Chloride 92 L Carbon Dioxide 37 H BUN 18 Creatinine 0.44 L Glucose 205 H Calcium 9.1 - Attending Attestation I examined this patient and my medical decision-making was reviewed with the Resident Physician Dr. Burrell. I agree with the documented findings, disposition and treatment plan as described except to the extent set forth below. Ms. Davila 52 y/o F known COPD, chronic hypoxic resp failure pt admitted with COPD exacerbation and acute bronchitis Still has cough with yellowish expectoration. However overall feels better Gen: A, A, O x 3 Chest : Diminishes BS b/l, moderate wheezing Heart: S1S2+ RRR no murmurs a/p 1. Acute on chronic hypoxic resp fialure 2. Acute COPD exacerbation 3. Acute bronchitis - mostly bacterial cont empirical abx start tapering IV steroids Duoneb
[2018-01-28 15:20] LABS: Adenovirus Not Detected (Not Detect); Bordetella Pertussis Not Detected (Not Detect); Chlamydophila pneumoniae Not Detected (Not Detect); Coronavirus 229E Not Detected (Not Detect); Coronavirus HKU1 Not Detected (Not Detect); Coronavirus NL63 Not Detected (Not Detect); Coronavirus OC43 Not Detected (Not Detect); Human Metapneumovirus Not Detected (Not Detect); Human Rhinovirus/Enterovirus Not Detected (Not Detect); Influenza A Subtype 2009 H1 Not Detected (Not Detect); Influenza A Untypeable Not Detected (Not Detect); Influenza B Not Detected (Not Detect); Mycoplasma pneumoniae Not Detected (Not Detect); Parainfluenza Virus 1 Not Detected (Not Detect); Parainfluenza Virus 2 Not Detected (Not Detect); Parainfluenza Virus 3 Not Detected (Not Detect); Parainfluenza Virus 4 Not Detected (Not Detect); Respiratory Syncytial Virus Not Detected (Not Detect)
[2018-01-28] MEDS: Acetaminophen 325 MG TABLET PO PRN (16:19)
[2018-01-28] MEDS: *HR* LORazepam 0.5 MG TABLET PO PRN (16:20)
[2018-01-28] MEDS: Levofloxacin 750 MG/150 ML 750 MG/150 ML BAG IVPB SCH (17:17)
[2018-01-29] MEDS: *HR* LORazepam 0.5 MG TABLET PO PRN (01:42)
[2018-01-29] MEDS: Acetaminophen 325 MG TABLET PO PRN (01:42)
[2018-01-29] MEDS: Ipratropium/Albuterol Neb 3 ML IH SCH ×2 (03:55→10:44)
[2018-01-29 05:17] LABS: Basophils # 0.1 K/mcL (0.0-0.2); Basophils % 0.9 %; Eosinophils % 0.4 %; Hematocrit 44.9 % (35.3-44.9); Immature Granulocytes % 3.6 % (0-4); Lymphocytes # 1.1 K/mcL (0.6-4.6); Mean Corpuscular HGB Conc 33.4 g/dL (31.6-35.5); Mean Corpuscular Hemoglobin 32.1 pg (28.0-33.3); Mean Corpuscular Volume 96.1 fL (83.0-100.0); Mean Platelet Volume 11.3 fL (9.4-12.4); Monocytes # 0.9 K/mcL (0.0-1.3); Monocytes % 9.7 %; Nucleated Red Blood Cells 0.8 /100 WBC (0); Red Blood Count 4.67 M/mcL (3.82-4.97); Red Cell Distribution Width 12.4 % (11.5-14.5); Segmented Neutrophils % 73.4 %
[2018-01-29] MEDS: *HR* Heparin 5,000 UNIT/ML VIAL SQ SCH (05:25)
[2018-01-29 05:41] LABS: Neutrophils # 6.7 K/mcL (1.6-8.9)
[2018-01-29 05:43] LABS: Platelet Count 195 K/mcL (140-400)
[2018-01-29 07:43] LABS: BUN/Creatinine Ratio 30 (6-26); Blood Urea Nitrogen 18 mg/dL (6-20); Carbon Dioxide 41 mEq/L (23-29); Chloride 93 mEq/L (98-107); Glucose 188 mg/dL (70-105); Osmolality,Calculated 287 (280-300); Potassium 5.1 mEq/L (3.5-5.1); Sodium 135 mEq/L (136-145); eGFR For African Americans > 60 (> 60); eGFR For Non-African Americans > 60 (> 60)
[2018-01-29] MEDS ORDERED: predniSONE 20 MG TABLET PO SCH (09:00)
[2018-01-29] MEDS: Furosemide 20 MG TABLET PO SCH (09:38)
[2018-01-29] MEDS: BuPROPion SR (12 HR) 150 MG TABLET PO SCH (09:38)
[2018-01-29] MEDS: Aspirin 81 MG TAB.CHEW PO SCH (09:38)
[2018-01-29] MEDS: Insulin LISPRO 300 UNITS/3 ML VIAL SQ SCH ×2 (09:39→12:11)
[2018-01-29 11:30] VITALS: BP 126/86
--- NOTE | 2018-01-29 11:37 | Discharge Summary ---
<Rogelio Burrell - Last Filed: 01/29/18 14:41> Orders not resulted at time of discharge: Pending orders 01/27/18 23:35 Culture,Sputum with Gram Stain [] Routine Date of Encounter: 01/29/18 Time of Encounter: 10:20 - Discharge Diagnosis (1) Acute exacerbation of chronic obstructive airways disease Priority: Primary Status: Acute (2) Hypertension Priority: Secondary Status: Acute Qualifiers: Hypertension type: essential hypertension Qualified Code(s): I10 - Essential (primary) hypertension (3) Diabetes mellitus Priority: Secondary Status: Chronic Qualifiers: Diabetes mellitus type: type 2 Diabetes mellitus intermediate project manager insulin use: without prison use Diabetes mellitus complication status: with unspecified complications Qualified Code(s): E11.8 - Type 2 diabetes mellitus with unspecified complications (4) DVT prophylaxis Priority: Secondary Status: Acute (5) CHF (congestive heart failure) Priority: Secondary Status: Acute Qualifiers: Heart failure type: diastolic Heart failure chronicity: chronic Qualified Code(s): I50.32 - Chronic diastolic (congestive) heart failure Hospital course: Ms. Davila is a 52 year old female OPD, depression presents to emergency room with complaint of increased shortness of breath on exertion as well as increased cough with change of sputum. She is oxygen dependent at home using 6 L home O2. Upon arrival to the emergency room she was noted to be hypoxic at 84 %. Denied any symptoms of fevers, chills, Vomiting, leg swelling or urinary symptoms. No recent hospitalizations. Vital signs on presentation significant for tachycardia with a rate of 112, and hypoxia as above. Lab results significant for mildly elevated H&H of 17/51 likely secondary to dehydration and hypoxia. Lab results otherwise unremarkable as well as chest x-ray. She was admitted to medicine for further evaluation and management of COPD exacerbation. Usually gradually improved and is currently tolerating baseline oxygen requirement. She was started on Levaquin, DuoNeb's, methylprednisone which was tapered to oral prednisone. Respiratory infectious panel negative for infection as well as urine legionella and strep antigens. Check, vital signs were within normal limits and she was back to 5 L of oxygen via nasal cannula. Patient states that her symptoms have resolved and she is willing to be discharged home at this time. Given a prescription for an additional 2 days of Levaquin to complete a 5 day course as well as prednisone taper. She will be instructed to follow-up with her primary care physician within one week of discharge and take all medications as described. She will also be instructed to return to the emergency room if her symptoms should worsen. Discharge discussed with: patient - Time Spent with Patient Total time spent providing and/or coordinating discharge services: - Discharge Medications Prescriptions: Levofloxacin [Levaquin] 750 mg PO DAILY #2 tablet predniSONE [PredniSONE] 40 mg PO DAILY #10 tablet Home Medications: Aspirin 81 mg PO DAILY #90 tab.chew 08/14/17 [Rx] Atorvastatin [Lipitor] 40 mg PO HS #90 tablet 08/14/17 [Rx] Ipratropium/Albuterol Neb [Duoneb] 3 ml IH [id number] #240 inhsol 08/14/17 [Rx] Metoprolol [Lopressor] 12.5 mg PO BID #90 tablet 08/14/17 [Rx] Nitroglycerin 0.4 mg SL Q5MIN PRN #25 tab.subl 08/14/17 [Rx] Albuterol Sulfate [Proair Hfa] 2 puff IH Q4H 01/26/18 [History] BuPROPion SR (12 HR) [Wellbutrin SR] 150 mg PO BID 01/26/18 [History] Furosemide [Lasix] 20 mg PO DAILY 01/26/18 [History] Mometasone/Formoterol [Dulera 200 Mcg/5 Mcg Inhaler] 1 puff IH DAILY 01/26/18 [ History] Oxygen 1 each .ROUTE AD 01/26/18 [History] Umeclidinium [place] [Incruse Ellipta] 1 puff IH DAILY 01/26/18 [History] Levofloxacin [Levaquin] 750 mg PO DAILY #2 tablet 01/29/18 [Rx] predniSONE [PredniSONE] 40 mg PO DAILY #10 tablet 01/29/18 [Rx] Allergies/Adverse Reactions: 3 Allergy/AdvReac Type Severity Reaction Status Date / Time No Known Allergies Allergy Verified 01/26/18 17:40 Date of admission: 01/26/18 22:21 Primary care physician: Finesse Hollins DO Discharging clinician: Rogelio Burrell Anticipated date of discharge: 01/29/18 - Constitutional Vitals: Temp Pulse Resp BP Pulse Ox 96.3 F L 66 18 126/86 97 01/29/18 11:19 01/29/18 11:19 01/29/18 11:19 01/29/18 11:19 01/29/18 11:19 General appearance: Present: mild distress, A&O X 3, answers questions appropriately Exam: Gen.: Vitals noted. No acute distress. AAOx3, resting comfortably in bed HEENT: PERRL/EOMI, oropharynx clear, Normocephalic, atraumatic, moist mucous membranes Cardiac: RRR, no murmur, +S1/S2 Pulmonary: Mild wheezing in the right lower lobe, otherwise much improved to auscultation. equal chest expansion Abdomen: soft, nontender, BS noted, no guarding Extremities: no BLE edema, nontender calf, no cyanosis or clubbing Neuro: A&Ox3, moves all extremities, no focal deficits Psych: Appropriate mood and behavior - Patient Status Disposition: Home, Self-Care Condition: Good Overall status at discharge: patient is progressing back to baseline - Discharge Instructions Instructions: Prednisone (By mouth), Levofloxacin (By mouth), Chronic Obstructive Pulmonary Disease (DC) Follow Up With: Finesse Hollins DO [Primary Care Provider] - Additional Instructions: Please follow up with your PCP within 1 week of discharge and take all medication as prescribed. Return to the hospital if your symptoms should get worse. Call your PCP if your symptoms do not improve within 3 days. - Diet and Activity Activity: increase activity as tolerated, resume usual activities as tolerated, wear oxygen at all times Diet: advance to your usual diet <Nan Sullivan - Last Filed: 01/29/18 17:25> Orders not resulted at time of discharge: Pending orders 01/27/18 23:35 Culture,Sputum with Gram Stain [RM] Routine Date of Encounter: 01/29/18 - Discharge Diagnosis (1) DVT prophylaxis Status: Acute (2) Diabetes mellitus Status: Chronic Qualifiers: Diabetes mellitus type: type 2 Diabetes mellitus intermediate project manager insulin use: without intermediate project manager use Diabetes mellitus complication status: with unspecified complications Qualified Code(s): E11.8 - Type 2 diabetes mellitus with unspecified complications (3) Acute exacerbation of chronic obstructive airways disease Status: Acute (4) Hypertension Status: Acute Qualifiers: Hypertension type: essential hypertension Qualified Code(s): I10 - Essential (primary) hypertension (5) CHF (congestive heart failure) Status: Acute Qualifiers: Heart failure type: diastolic Heart failure chronicity: chronic Qualified Code(s): I50.32 - Chronic diastolic (congestive) heart failure Hospital course: Ms. Davila is a 52 year old female - Time Spent with Patient Total time spent providing and/or coordinating discharge services: Date of admission: 01/26/18 22:21 Primary care physician: Finesse Hollins, DO - Constitutional Vitals: Temp Pulse Resp BP Pulse Ox 96.3 F L 66 18 126/86 97 01/29/18 11:19 01/29/18 11:19 01/29/18 11:19 01/29/18 11:19 01/29/18 11:19 - Attending Attestation I examined this patient and my medical decision-making was reviewed with the Resident Physician Dr. Burrell. I agree with the documented findings, disposition and treatment plan as described except to the extent set forth below. Ms. Davila 52 y/o F known COPD, chronic hypoxic resp failure pt admitted with COPD exacerbation and acute bronchitis Still has cough with yellowish expectoration. However overall feels better Gen: A, A, O x 3 Chest : Diminishes BS b/l, moderate wheezing Heart: S1S2+ RRR no murmurs a/p 1. Acute on chronic hypoxic resp failure 2. Acute COPD exacerbation 3. Acute bronchitis - mostly bacterial Seems back to baseline medically stable to d/c home with Tapering steroids and empirical abx
--- NOTE | 2018-01-29 15:18 | Electrocardiograph Report ---
[address] [address] Test Date: 2018-01-26 Pat Name: Ariella Hyndman Department: 102 Room: 3A Gender: F Facility Practice Specialist: Ekp : [id number] Requested By: Jesu Jimenez Order Number: [id number] Reading MD: Pavan Grayson Measurements Intervals Social Circle Rate: 115 P: 78 [place]: 100 QRS: 12 QRSD: 97 T: 48 QT: 318 QTc: 386 Interpretive Statements SINUS TACHYCARDIA POSSIBLE LEFT ATRIAL ENLARGEMENT Electronically Signed On 01-29-2018 15:16:52 EDT by Pavan Grayson
== END 2018-01-29 14:35 | disposition home or self-care (01) | DRG 140 ==
LOC: 3ANU 16:12 → EMEROO 16:12 → 3ANU 21:49
PROVIDERS: ADMIT Family Medicine; ATTEND Family Medicine

== ENCOUNTER 2018-08-23 20:01 | Inpatient (IN) ==
[2018-08-23] MEDS ORDERED: methylPREDNISolone 125 MG/2 ML VIAL IVP ONE (20:15)
[2018-08-23] MEDS ORDERED: Ipratropium/Albuterol Neb 3 ML IH ONE (20:15)
--- NOTE | 2018-08-23 20:38 | Emergency Department Note ---
Disposition Clinical Impression: Hypercapnic respiratory failure, Acute bronchitis with COPD Disposition: Admitted As Inpatient Condition: Fair Time of Disposition: 22:24 SOB HPI - General Chief Complaint: ED Shortness of Breath/Dyspnea Stated Complaint: QUITA Time Seen by Provider: 08/23/18 20:07 Source: EMS Limitations: no limitations Nursing Notes Reviewed: Yes Vital Signs Reviewed: Yes - History of Present Illness Patient presents to the ED via EMS and was seen and evaluated immediately upon arrival. EMS reports they were called out for difficulty in breathing. Patient has a history of oxygen dependent COPD. Has had increase in her productive cough with green, yellow and brown sputum for last couple of days. Her normal medications at home have not been helping. According EMS. Family states that patient has been confused today and that was part of the result. I called EMS. Patient denies any fever or chills. She denies any chest pain, but does state that she has some chest tightness which is similar to her previous issues with COPD. Denies any abdominal pain, nausea, vomiting, diarrhea. No rash. No pain or swelling in her legs. No history of DVT, PE or malignancy. - Related Data Home Medications Medication Instructions Recorded Confirmed RX: Albuterol Sulfate [Proair Hfa] 2 puff IH Q4H 01/26/18 08/23/18 RX: BuPROPion SR (12 HR) 150 mg PO BID 01/26/18 08/23/18 [Wellbutrin SR] RX: Furosemide [Lasix] 20 mg PO DAILY PRN 01/26/18 08/23/18 RX: Mometasone/Formoterol [Dulera 1 puff IH DAILY 01/26/18 08/23/18 200 Mcg/5 Mcg Inhaler] RX: Oxygen 1 each .ROUTE AD 01/26/18 08/23/18 RX: Umeclidinium [place] [Incruse 1 puff IH DAILY 01/26/18 08/23/18 Ellipta] Previous Rx's Medication Instructions Recorded RX: Aspirin 81 mg PO DAILY #90 tab.chew 08/14/17 RX: Atorvastatin [Lipitor] 40 mg PO HS #90 tablet 08/14/17 RX: Ipratropium/Albuterol Neb 3 ml IH [id number] #240 inhsol 08/14/17 [Duoneb] RX: Metoprolol [Lopressor] 12.5 mg PO BID #90 tablet 08/14/17 RX: Nitroglycerin 0.4 mg SL Q5MIN PRN #25 tab.subl 08/14/17 Allergies Allergy/AdvReac Type Severity Reaction Status Date / Time No Known Allergies Allergy Verified 01/26/18 17:40 Review of Systems: As reviewed in the HPI. All other systems reviewed are negative or normal. Past Medical History - Past Medical History Attestation: Yes The following information was validated with the patient. 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 - Social History Smoking Status: Current every day smoker Smokeless Tobacco Status: No Alcohol use: Reports: none Drug use: Reports: none Physical Exam CONSTITUTIONAL: [Patient in mild to moderate respiratory distress, appears slig htly sleepy] EYES: [EOMI, clear conjunctiva, PERRLA] HENT: [Normocephalic, atraumatic, moist mucus membranes, normal oropharynx] NECK: [normal inspection, full ROM, trachea midline, no obvious swelling] PULMONARY: [Coarse breath sounds throughout, mild distress, wheezing and upper lung jackson, decreased breath sounds throughout, tight aeration CARDIOVASCULAR: [regular rate, regular rhythm, normal heart sounds, no murmurs, distal extremities are warm and well perfused] GASTROINSTESTINAL: [soft, non-tender, non-rigid, non-distended, no guarding, no rebound, normal bowel sounds] GENITOURINARY/RECTAL: [deferred] NEUROLOGIC: [Alert, oriented x3, but is slow to remember and speak, normal speech, moves all extremities] EXTREMITIES: [Normal inspection, full ROM, no tenderness, no pedal edema, normal capillary refill] MUSCULOSKELETAL: [no gross deformities, atraumatic] SKIN: [No cyanosis, no diaphoresis, normal color, warm, no rash] PSYCHIATRIC: [normal mood and affect] - General Limitations: no limitations General appearance: alert Course Course Narrative: Patient presenting with a suspected COPD exacerbation. She got to do nebs in route. EMS reports family states she is confused and she does seem a little slow. Suspecting she is retaining CO2. We will go ahead and place her on BiPAP due to her respiratory distress and confusion. We will get an ABG and labs. She has had increase in sputum production, so there is always the concern over pneumonia. We will get a chest x-ray and sepsis workup. Vital Signs Temperature 98.2 F 08/23/18 20:05 Pulse Rate 93 08/23/18 20:05 Respiratory Rate 22 08/23/18 20:05 Blood Pressure 154/91 08/23/18 20:05 O2 Sat by Pulse Oximetry 91 08/23/18 20:05 Temperature 98.2 F 08/23/18 20:05 Pulse Rate 92 08/23/18 21:35 Respiratory Rate 24 08/23/18 21:35 Blood Pressure 141/92 08/23/18 21:35 O2 Sat by Pulse Oximetry 93 08/23/18 21:35 Oxygen Delivery Oxygen Delivery Bipap Shortness of Breath/Dyspnea - Medical Records Medical records reviewed: Yes I reviewed the patient's medical records. - Lab Data Lab results reviewed: Yes I reviewed the patient's lab results. Result diagrams: 08/23/18 20:42 08/24/18 13:29 Lab Results 08/23/18 08/23/18 08/23/18 Range/Units 20:38 20:42 20:42 WBC 7.6 (4.3-11.1) K/mcL RBC 4.58 (3.82-4.97) M/mcL Hgb 14.3 (11.5-15.4) g/dL Hct 44.8 (35.3-44.9) % MCV 97.8 (83.0-100.0) fL MCH 31.2 (28.0-33.3) pg MCHC 31.9 (31.6-35.5) g/dL RDW 12.8 (11.5-14.5) % Plt Count 194 (140-400) K/mcL MPV 9.5 (9.4-12.4) fL Immature Gran % 0.5 (0-4) % Seg Neutrophils % 74.2 % Lymphocytes % 15.2 % Monocytes % 7.9 % Eosinophils % 1.7 % Basophils % 0.5 % Neutrophils # 5.7 (1.6-8.9) K/mcL Lymphocytes # 1.2 (0.6-4.6) K/mcL Monocytes # 0.6 (0.0-1.3) K/mcL Eosinophils # 0.1 (0.0-0.6) K/mcL Basophils # 0.0 (0.0-0.2) K/mcL Sample Site R Radial ABG pH 7.38 (7.32-7.45) pH Units ABG pCO2 76 H* (35-45) mmHg ABG pO2 60 L (85-104) mmHg ABG HCO3 45 H (21-27) mEq/L ABG Total CO2 48 H (20-26) mEq/L ABG O2 Saturation 88 L (95-98) % ABG Base Excess 16 H (-2 to 3) mEq/L Campos Test N/A O2 Delivery Device Cannula Inspired O2 4.0 (1-15=lpm [id number]=%) Sodium 139 (136-145) mEq/L Potassium 4.4 (3.5-5.1) mEq/L Chloride 94 L (98-107) mEq/L Carbon Dioxide 42 H* (23-29) mEq/L BUN 10 (6-20) mg/dL Creatinine 0.40 L (0.60-1.20) mg/dL Est GFR ( Amer) > 60 (> 60) Est GFR (Non-Af Amer) > 60 (> 60) BUN/Creatinine Ratio 25 (6-26) Glucose 184 H (70-105) mg/dL Calculated Osmolality 292 (280-300) Lactic Acid (0.5-2.2) mmol/L Calcium 9.5 (8.6-10.3) mg/dL Troponin I < 0.03 (< 0.04) ng/mL B-Natriuretic Peptide (Less than 100) pg/mL 08/23/18 08/23/18 Range/Units 20:42 20:42 WBC (4.3-11.1) K/mcL RBC (3.82-4.97) M/mcL Hgb (11.5-15.4) g/dL Hct (35.3-44.9) % MCV (83.0-100.0) fL MCH (28.0-33.3) pg MCHC (31.6-35.5) g/dL RDW (11.5-14.5) % Plt Count (140-400) K/mcL MPV (9.4-12.4) fL Immature Gran % (0-4) % Seg Neutrophils % % Lymphocytes % % Monocytes % % Eosinophils % % Basophils % % Neutrophils # (1.6-8.9) K/mcL Lymphocytes # (0.6-4.6) K/mcL Monocytes # (0.0-1.3) K/mcL Eosinophils # (0.0-0.6) K/mcL Basophils # (0.0-0.2) K/mcL Sample Site ABG pH (7.32-7.45) pH Units ABG pCO2 (35-45) mmHg ABG pO2 (85-104) mmHg ABG HCO3 (21-27) mEq/L ABG Total CO2 (20-26) mEq/L ABG O2 Saturation (95-98) % ABG Base Excess (-2 to 3) mEq/L Campos Test O2 Delivery Device Inspired O2 (1-15=lpm [id number]=%) Sodium (136-145) mEq/L Potassium (3.5-5.1) mEq/L Chloride (98-107) mEq/L Carbon Dioxide (23-29) mEq/L BUN (6-20) mg/dL Creatinine (0.60-1.20) mg/dL Est GFR ( Amer) (> 60) Est GFR (Non-Af Amer) (> 60) BUN/Creatinine Ratio (6-26) Glucose (70-105) mg/dL Calculated Osmolality (280-300) Lactic Acid 0.8 (0.5-2.2) mmol/L Calcium (8.6-10.3) mg/dL Troponin I (< 0.04) ng/mL B-Natriuretic Peptide 85 (Less than 100) pg/mL - Radiology Data Radiology results reviewed: Yes I reviewed the patient's radiology results. - EKG Data EKG attestation: Yes I reviewed and interpreted this EKG. EKG results narrative: Sinus rhythm, rate 90, normal axis, no ischemic change Critical Care Time Critical Care Time: Yes Total Critical Care Time: 35 Attestation: I personally spent ___35___ minutes devoted to the care of this critically ill patient with acute hypercapnic respiratory failure secondary to COPD. This time excludes the time for billable procedures. Attestation Statement - Attestation Attestation: Resident Attestation: I examined this patient and my medical decision making was reviewed with the Resident Physician. I agree with the documented findings, disposition and treatment plan as described except to the extent set forth below. We independently had [id number] contact with the patient. Patient history of COPD presents respiratory distress. Patient received breathing treatments and round. Reported complaints of confusion. Suspecting retained CO2. Patient placed on BiPAP as well as worked up for state further COPD exacerbation versus pneumonia. Moderate respiratory distress. Associated diffuse wheezing. Regular rhythm. Abdomen soft nontender palpation. No peripheral pitting edema.
[2018-08-23 20:42] LABS: ABG Base Excess 16 mEq/L (-2 to 3); ABG HCO3 45 mEq/L (21-27); ABG Oxygen Saturation 88 % (95-98); ABG PCO2 76 mmHg (35-45); ABG PH 7.38 pH Units (7.32-7.45); ABG PO2 60 mmHg (85-104); ABG TCO2 48 mEq/L (20-26)
[2018-08-23 20:53] LABS: Basophils % 0.5 %; Eosinophils # 0.1 K/mcL (0.0-0.6); Eosinophils % 1.7 %; Hematocrit 44.8 % (35.3-44.9); Hemoglobin 14.3 g/dL (11.5-15.4); Immature Granulocytes % 0.5 % (0-4); Lymphocytes # 1.2 K/mcL (0.6-4.6); Lymphocytes % 15.2 %; Mean Corpuscular HGB Conc 31.9 g/dL (31.6-35.5); Mean Corpuscular Hemoglobin 31.2 pg (28.0-33.3); Mean Corpuscular Volume 97.8 fL (83.0-100.0); Mean Platelet Volume 9.5 fL (9.4-12.4); Monocytes # 0.6 K/mcL (0.0-1.3); Monocytes % 7.9 %; Neutrophils # 5.7 K/mcL (1.6-8.9); Platelet Count 194 K/mcL (140-400); Red Blood Count 4.58 M/mcL (3.82-4.97); Red Cell Distribution Width 12.8 % (11.5-14.5); Segmented Neutrophils % 74.2 %
[2018-08-23 21:17] LABS: Troponin I < 0.03 ng/mL (< 0.04)
[2018-08-23 21:24] LABS: BUN/Creatinine Ratio 25 (6-26); Blood Urea Nitrogen 10 mg/dL (6-20); Calcium 9.5 mg/dL (8.6-10.3); Carbon Dioxide 42 mEq/L (23-29); Chloride 94 mEq/L (98-107); Glucose 184 mg/dL (70-105); Osmolality,Calculated 292 (280-300); Potassium 4.4 mEq/L (3.5-5.1); Sodium 139 mEq/L (136-145); eGFR For Non-African Americans > 60 (> 60)
[2018-08-23] MEDS ORDERED: Nitroglycerin 0.4 MG TAB.SUBL SL PRN (22:38)
[2018-08-23] MEDS ORDERED: NON-FORMULARY MEDICATION 1 EACH EACH (Oxygen [Oxygen] 1 EACH) SCH (22:45)
[2018-08-23] MEDS ORDERED: Furosemide 20 MG/2 ML VIAL IVP ONE (22:45)
--- NOTE | 2018-08-23 22:55 | Internal Med History&Physical ---
Date of Encounter: 08/23/18 Time of Encounter: 22:50 Internal Medicine - H&P: HPI Chief complaint: Shortness of breath Admitted From: Home Plans for Post Hospital Care: Home History of present illness: Ariella Davila is a 53-year-old woman who is an active smoker with COPD on 4 L home oxygen and hypertension who is brought into the ER by her family because of increasing shortness of breath, productive cough with greenish sputum for the last few days and a confusional state earlier today. Upon arrival to the ER she was found to be in respiratory distress and was started on nebulizer therapy. She was subsequently escalated to BiPAP in which she had an improvement in her mental status and was now more stable. ABG showing CO2 retention. She denies any chest pain accompanying the shortness of breath and says that it has been progressive over the past week. She also complains of rhinorrhea but denies sore throat, fever, chills and myalgias. She is admitted for ongoing observation. Past Med Surg Social Fam HX - Past Medical History Medical history: COPD, hypertension Psychiatric history: depression - Past Surgical History Surgical History: cholecystectomy - Social History Smoking Status: Current every day smoker Smokeless Tobacco Status: No Alcohol use: none Drug use: none Internal Medicine - H&P: Meds Aspirin 81 mg PO DAILY #90 tab.chew 08/14/17 [Rx] Atorvastatin [Lipitor] 40 mg PO HS #90 tablet 08/14/17 [Rx] Ipratropium/Albuterol Neb [Duoneb] 3 ml IH [id number] #240 inhsol 08/14/17 [Rx] Metoprolol [Lopressor] 12.5 mg PO BID #90 tablet 08/14/17 [Rx] Nitroglycerin 0.4 mg SL Q5MIN PRN #25 tab.subl 08/14/17 [Rx] Albuterol Sulfate [Proair Hfa] 2 puff IH Q4H 01/26/18 [History] BuPROPion SR (12 HR) [Wellbutrin SR] 150 mg PO BID 01/26/18 [History] Furosemide [Lasix] 20 mg PO DAILY PRN 01/26/18 [History] Mometasone/Formoterol [Dulera 200 Mcg/5 Mcg Inhaler] 1 puff IH DAILY 01/26/18 [History] Oxygen 1 each .ROUTE AD 01/26/18 [History] Umeclidinium [place] [Incruse Ellipta] 1 puff IH DAILY 01/26/18 [History] Allergy/AdvReac Type Severity Reaction Status Date / Time No Known Allergies Allergy Verified 01/26/18 17:40 All Systems PM: A 10-system review of systems was performed and is negative for pertinent findings except as documented above in the HPI. Family history obtained and found noncontributory. - Constitutional Vitals: Temp Pulse Resp BP Pulse Ox 98.2 F 92 24 141/92 93 08/23/18 20:05 08/23/18 21:35 08/23/18 21:35 08/23/18 21:35 08/23/18 21:35 Exam: Vitals: Reviewed General: Well-developed, sitting up in bed on Bipap. Skin: Warm and supple. HEENT: Moist mucous membranes. No conjunctivae pallor. Neck: No lymphadenopathy. No JVD. No carotid bruits. No palpable thyroid. Chest: Normal thoracic expansion. Diffuse expiratory wheezing on auscultation. Heart: Normal S1 & S2; rhythmic. No rubs or murmurs. Abdomen: Non-distended, soft and non-tender to palpation. No peritoneal reaction. Extremities: No clubbing, cyanosis or edema. No calf tenderness. Normal distal pulses. Neurological: Awake, alert and oriented to person, place and time. No focal deficits. Psych: Affect appropriate. Internal Med - H&P Results - Labs CBC & Chem 7: 08/23/18 20:42 08/23/18 20:42 Labs: Short CBC 08/23/18 Range/Units 20:42 WBC 7.6 (4.3-11.1) K/mcL Hgb 14.3 (11.5-15.4) g/dL Hct 44.8 (35.3-44.9) % Plt Count 194 (140-400) K/mcL Neutrophils # 5.7 (1.6-8.9) K/mcL BMP 08/23/18 20:42 Sodium 139 Potassium 4.4 Chloride 94 L Carbon Dioxide 42 H* BUN 10 Creatinine 0.40 L Glucose 184 H Calcium 9.5 Cardiac Enzymes 08/23/18 Range/Units 20:42 Troponin I < 0.03 (< 0.04) ng/mL - ABG Interpretation ABG results: 08/23/18 20:38 ABG pH 7.38 ABG pCO2 76 H* ABG pO2 60 L ABG HCO3 45 H ABG Total CO2 48 H ABG O2 Saturation 88 L ABG Base Excess 16 H - Impressions ITS Impressions Chest X-Ray 08/23/18 20:15 IMPRESSION: No acute findings. D/ / Cameron Virgen MD / Cameron Virgen MD Interpreting Provider: Cameron Virgen MD - Assessment and plan (1) Hypercapnic respiratory failure Current Visit: Yes Status: Acute Assessment and plan: Likely secondary to COPD exacerbation. Will continue NIPPV overnight in conjunction with nebulizer therapy and steroids. Repeat ABG in the morning. Send sputum for culture. Start azithromycin 500mg daily x 3 days. Continuous oximetry. Qualifiers: Chronicity: acute on chronic Qualified Code(s): J96.22 - Acute and chronic respiratory failure with hypercapnia (2) Acute exacerbation of chronic obstructive airways disease Current Visit: Yes Status: Acute Assessment and plan: As indicated above. (3) Hypertension Current Visit: Yes Status: Acute Assessment and plan: Resume home meds. Qualifiers: Hypertension type: essential hypertension Qualified Code(s): I10 - Essential (primary) hypertension (4) Tobacco abuse Current Visit: Yes Status: Chronic Assessment and plan: Counseling. Resources made available. (5) Diabetes mellitus Current Visit: Yes Status: Chronic Assessment and plan: The patient denies being a diabetic however an A1C from a year ago was 6.7%. Will recheck. Qualifiers: Diabetes mellitus type: type 2 Diabetes mellitus buttermaker insulin use: without half-way use Diabetes mellitus complication status: with unspecified complications Qualified Code(s): E11.8 - Type 2 diabetes mellitus with un specified complications (6) DVT prophylaxis Current Visit: Yes Status: Acute Assessment and plan: SubQ heparin indicated. - Time Spent With Patient Total time spent is greater than 50% in coordination of care (as documented) at patient's floor/unit and/or counseling patient: Greater than 35 minutes
[2018-08-23] MEDS ORDERED: Azithromycin 500 MG in D5% in Water 250 ML IVPB SCH (23:00)
[2018-08-23] MEDS: Ipratropium/Albuterol Neb 3 ML IH SCH (23:48)
[2018-08-24] MEDS: Furosemide 20 MG TABLET PO SCH ×2 (00:12→08:42)
[2018-08-24] MEDS: Nicotine 14 MG PATCH.TD24 TD SCH (00:12)
[2018-08-24] MEDS ORDERED: *HR* LORazepam 2 MG/ML VIAL IVP ONE (01:15)
[2018-08-24] MEDS: Ipratropium/Albuterol Neb 3 ML IH SCH ×6 (04:13→23:23)
[2018-08-24 05:12] LABS: ABG Base Excess 20 mEq/L (-2 to 3); ABG HCO3 51 mEq/L (21-27); ABG Oxygen Saturation 84 % (95-98); ABG PCO2 77 mmHg (35-45); ABG PH 7.43 pH Units (7.32-7.45); ABG PO2 51 mmHg (85-104); ABG TCO2 53 mEq/L (20-26)
[2018-08-24] MEDS: *HR* Heparin 5,000 UNIT/ML VIAL SQ SCH ×2 (05:47→15:31)
[2018-08-24 06:54] LABS: BUN/Creatinine Ratio 33 (6-26); Blood Urea Nitrogen 13 mg/dL (6-20); Calcium 9.4 mg/dL (8.6-10.3); Carbon Dioxide 41 mEq/L (23-29); Chloride 92 mEq/L (98-107); Glucose 294 mg/dL (70-105); Osmolality,Calculated 301 (280-300); Potassium 5.2 mEq/L (3.5-5.1); Sodium 140 mEq/L (136-145); eGFR For Non-African Americans > 60 (> 60)
--- NOTE | 2018-08-24 07:21 | Internal Med Progress Note ---
<Marcos Thomas Chidi - Last Filed: 08/24/18 11:54> Hospitalist Progress Note - Encounter Date of Encounter: 08/24/18 Time of Encounter: 08:20 - Subjective Interval History: Laying in bed on BiPAP, lethargic but arousable to voice. She says she feels her breathing is better with BiPAP on. Had period overnight where she was not keeping mask on and given 1mg lorazepam and has improved since. She thinks her confusion has improved since BiPAP. She has not had green productive cough since admission. She denies blurry vision, diplopia, dizziness/lightheadedness, chest pain, pleuritic chest pain, abdominal pain, N/V. - Exam Vitals: Temp Pulse Resp BP Pulse Ox 97.9 F 76 22 161/93 93 08/24/18 07:00 08/24/18 07:00 08/24/18 07:00 08/24/18 07:00 08/24/18 07:00 Exam: General: Lethargic but arousable to voice, alert, mild acute resp distress, on BiPAP, no signs of toxicity Head: Atraumatic, normocephalic, Eye: Normal appearance, pupils equal and round, EOMi, no scleral icterus, no conjunctival injection ENT: Mucous membranes dry Neck: Normal inspection, trachea midline Chest: Symmetric chest rise, non tender to palpation Respiratory: Increased resp effort, mild paradoxical breathing, increased exp phase, decreased breath sounds bilaterally, crackles L base, scattered exp wheezing worst at R base Cardiovascular: RRR, S1/S2+, no murmurs, rubs, gallops, radial pulse 2+ bilat, no edema Abdomen: Soft, nontender, nondistended, no guarding, rebound, or organomegaly Musculoskeletal: Spontaneously moving all extremities, no calf tenderness Skin: Warm, dry, intact. Neuro: Cranial nerves 2-12 grossly intact, no focal deficits Psych: Normal affect - Assessment and Plan (1) Acute exacerbation of chronic obstructive airways disease Current Visit: Yes Status: Acute Assessment and Plan: -Green productive cough, increasing dyspnea and hypoxic/hypercarbic resp failure on arrival -WBC 7.6 and afebrile on arrival -Current daily smoker -Sputum culture pending -Rapid flu pending -Started on 500mg azithromycin at admission -Decrease azithromycin to 250mg for total 5 days and add ceftriaxone for same stop date through 08/27/18 -Afebrile -On BiPAP with combined metabolic alkalosis and resp acidosis with hypoxia on ABG -Continue steroids, scheduled duonebs, and abx today -Continue BiPAP today (2) Diabetes mellitus Current Visit: Yes Status: Chronic Assessment and Plan: -Prior A1C year ago 6.7% -No home antihyperglycemics -Repeat A1C pending -Glucose 294 this morning -Started low SSI (3) Hypertension Current Visit: Yes Status: Acute Assessment and Plan: -Hx of HTN -BP 154/91 on arrival -161/93 most recent -Home metoprolol started -Will increase BB today and monitor BP (4) Hyperkalemia Current Visit: Yes Status: Acute Assessment and Plan: -K 4.4 on arrival -K increased to 5.2 this morning -Will give kayexalate once this am and monitor BMP (5) Tobacco abuse Current Visit: Yes Status: Chronic Assessment and Plan: -Recommend cessation at dc -Nicotine patch (6) Acute on chronic respiratory failure with hypoxia and hypercapnia Current Visit: Yes Status: Acute Assessment and Plan: -Likely 2/2 COPD exacerbation -Initial ABG pH 7.38, pCO2 76, pO2 60 on 4L NC -Repeat 7.43, 77, 51 on 40% FiO2 BiPAP -Placed on BiPAP which was continued overnight -Confusion resolved with BiPAP -CXR 08/23/18 no acute findings -On steroids, q4h duonebs -Most recent ABG pH 7.43, pCO2 76, pO2 63 on 45% FiO2 BiPAP as combined metabolic alkalosis with respiratory acidosis, not full compensation -Increased FiO2 to 50% this morning -Will continue steroids, nebs, and BiPAP DVT Prophylaxis: Heparin - Time Spent with Patient Total time spent is greater than 50% in coordination of care (as documented) at patient's floor/unit and/or counseling patient: Internal Medicine: Result - Labs CBC & Chem 7: 08/23/18 20:42 08/24/18 06:18 Labs: Short CBC 08/23/18 Range/Units 20:42 WBC 7.6 (4.3-11.1) K/mcL Hgb 14.3 (11.5-15.4) g/dL Hct 44.8 (35.3-44.9) % Plt Count 194 (140-400) K/mcL Neutrophils # 5.7 (1.6-8.9) K/mcL BMP 08/23/18 08/24/18 20:42 06:18 Sodium 139 140 Potassium 4.4 5.2 H Chloride 94 L 92 L Carbon Dioxide 42 H* 41 H* BUN 10 13 Creatinine 0.40 L 0.40 L Glucose 184 H 294 H Calcium 9.5 9.4 Cardiac Enzymes 08/23/18 Range/Units 20:42 Troponin I < 0.03 (< 0.04) ng/mL - ABG Interpretation ABG results: ABG ABG pH 7.43 pH Units (7.32-7.45) 08/24/18 05:09 ABG pCO2 77 mmHg (35-45) H* 08/24/18 05:09 ABG pO2 51 mmHg (85-104) L 08/24/18 05:09 ABG O2 Saturation 84 % (95-98) L 08/24/18 05:09 - Impressions Impressions Chest X-Ray 08/23/18 20:15 IMPRESSION: No acute findings. D/ / Cameron Virgen MD / Cameron Virgen MD Interpreting Provider: Cameron Virgen MD Consult Discharge Plan - Plan Referrals: Joaquín Stuart DO [Partnered Physician] - NONE,PCP [Primary Care Provider] - <Devika Dover - Last Filed: 08/24/18 12:41> Hospitalist Progress Note - Encounter Date of Encounter: 08/24/18 - Exam Vitals: Temp Pulse Resp BP Pulse Ox 98 F 75 23 145/83 96 08/24/18 11:06 08/24/18 11:06 08/24/18 11:21 08/24/18 11:06 08/24/18 11:21 - Assessment and Plan (1) Tobacco abuse Current Visit: Yes Status: Chronic (2) Diabetes mellitus Current Visit: Yes Status: Chronic (3) Acute exacerbation of chronic obstructive airways disease Current Visit: Yes Status: Acute (4) Hypertension Current Visit: Yes Status: Acute (5) Hyperkalemia Current Visit: Yes Status: Acute (6) Acute on chronic respiratory failure with hypoxia and hypercapnia Current Visit: Yes Status: Acute - Time Spent with Patient Total time spent is greater than 50% in coordination of care (as documented) at patient's floor/unit and/or counseling patient: Internal Medicine: Result - Labs CBC & Chem 7: 08/23/18 20:42 08/24/18 06:18 Labs: Short CBC 08/23/18 Range/Units 20:42 WBC 7.6 (4.3-11.1) K/mcL Hgb 14.3 (11.5-15.4) g/dL Hct 44.8 (35.3-44.9) % Plt Count 194 (140-400) K/mcL Neutrophils # 5.7 (1.6-8.9) K/mcL BMP 08/23/18 08/24/18 20:42 06:18 Sodium 139 140 Potassium 4.4 5.2 H Chloride 94 L 92 L Carbon Dioxide 42 H* 41 H* BUN 10 13 Creatinine 0.40 L 0.40 L Glucose 184 H 294 H Calcium 9.5 9.4 Cardiac Enzymes 08/23/18 Range/Units 20:42 Troponin I < 0.03 (< 0.04) ng/mL - ABG Interpretation ABG results: ABG ABG pH 7.39 pH Units (7.32-7.45) 08/24/18 11:35 ABG pCO2 82 mmHg (35-45) H* 08/24/18 11:35 ABG pO2 67 mmHg (85-104) L 08/24/18 11:35 ABG O2 Saturation 91 % (95-98) L 08/24/18 11:35 - Impressions Impressions Chest X-Ray 08/23/18 20:15 IMPRESSION: No acute findings. D/ / Cameron Virgen MD / Cameron Virgen MD Interpreting Provider: Cameron Virgen MD - Attending Attestation I examined this patient and my medical decision-making was reviewed with the Resident Physician Dr Thomas. I agree with the documented findings, disposition and treatment plan as described except to the extent set forth below/addl detai ls below Ms Davila was admitted with Hypercapnic resp failure with hx copd. She is being treated for copd exacerbation given recent symptom report. awake, somenolent but arousable to name, bipap off to take morning meds, sob with mild resp distress and unable to converse in full sentences. + wheezing, cough, green sputum at home, none yet here. denies fevers, chills, no chest pain. gen- somnolent, awakes to name,appears stated age eyes- pupils equal round cv- reg rate and rhythm, normal s1,s2, no murmurs appreciated, no le edema lungs- diffuse exp wheezing, no rhonchi or crackles, diminished bs bl, mild resp distress on room air currently about to take pills, no accessory muscle use, breathless wih conversation abd- soft, non tender, non distended, + bs msk- calf size equal neuro- AAOx3, CN grossly intact, no focal deficits. acute on chronic Hypoxic and Hypercapnic Resp failure Suspected 2/2 copd exacerbation given sob and green sputum with cough -report of bipap mask leak, now fixed and repeat abg withotu pco2 improvement, daljit mental status improved from initial presentation -check stat cta chest to rule out pe as barrier to oxygenation, pending results, may need to consult pulm if no improvement this afternoon -cont bipap -azithro + rocpehin + iv steroids and standing nebs -uses 6L NC at home DM with a1c 6.8- SSI and hold starting oral med at this time, getting cta, will need to fu outpt Mild Hyperkalemia with K+ 5.2 s/p kayexalate this morning- repeat K+ level to confirm Chronic Diastolic CHF, appears euvolemic on exam, CXR without effusions most recent echo 2016 with EF 65-70% and no significant findings noted -cta pending -strict i/os, weights, cont home lasix po daily, cont home asa + statin + bb, unknown why not on acei/arb at home further diagnoses and plan as documented by resident <Marcos Thomas T - Last Filed: 08/24/18 11:54> (2) Diabetes mellitus Qualifiers: Diabetes mellitus type: type 2 Diabetes mellitus shelter insulin use: without shelter use Diabetes mellitus complication status: with unspecified complications Qualified Code(s): E11.8 - Type 2 diabetes mellitus with unspecified complications (3) Hypertension Qualifiers: Hypertension type: essential hypertension Qualified Code(s): I10 - Essential (primary) hypertension <Devika Dover M - Last Filed: 08/24/18 12:41> (2) Diabetes mellitus Qualifiers: Diabetes mellitus type: type 2 Diabetes mellitus shelter insulin use: without medical terminologist use Diabetes mellitus complication status: with unspecified complications Qualified Code(s): E11.8 - Type 2 diabetes mellitus with unspecified complications (4) Hypertension Qualifiers: Hypertension type: essential hypertension Qualified Code(s): I10 - Essential (primary) hypertension
[2018-08-24] MEDS ORDERED: Dextrose Gel 15 GM/37.5 ML TUBE PO PRN ×2 (07:24)
[2018-08-24] MEDS ORDERED: D5% in Water 1,000 ML IVC PRN (07:24)
[2018-08-24] MEDS ORDERED: *HR* Dextrose 50 % in Water (Syg) 50 ML SYRINGE IVP PRN (07:24)
[2018-08-24 08:22] LABS: ABG Base Excess 19 mEq/L (-2 to 3); ABG HCO3 50 mEq/L (21-27); ABG Oxygen Saturation 91 % (95-98); ABG PCO2 76 mmHg (35-45); ABG PH 7.43 pH Units (7.32-7.45); ABG PO2 63 mmHg (85-104); ABG TCO2 52 mEq/L (20-26); Blood Gas PEEP 7 cm H2O
[2018-08-24] MEDS: Aspirin 81 MG TAB.CHEW PO SCH (08:42)
[2018-08-24] MEDS: cefTRIAXone 2,000 MG in 0.9 % Sodium Chloride Mini Bag 100 ML IVPB SCH (08:42)
[2018-08-24] MEDS: BuPROPion SR (12 HR) 150 MG TABLET PO SCH ×2 (08:42→20:12)
[2018-08-24] MEDS: Insulin LISPRO 300 UNITS/3 ML VIAL SQ SCH ×4 (08:59→20:06)
[2018-08-24] MEDS ORDERED: predniSONE 20 MG TABLET PO SCH (09:00)
[2018-08-24] MEDS ORDERED: MethylPREDNISolone 40 MG/ML VIAL IVP SCH (09:00)
[2018-08-24 09:46] LABS: Estimated Average Glucose 148 mg/dl; Hemoglobin A1C 6.8 %
[2018-08-24 11:53] LABS: ABG Base Excess 19 mEq/L (-2 to 3); ABG HCO3 50 mEq/L (21-27); ABG Oxygen Saturation 91 % (95-98); ABG PCO2 82 mmHg (35-45); ABG PH 7.39 pH Units (7.32-7.45); ABG PO2 67 mmHg (85-104); ABG TCO2 52 mEq/L (20-26); Blood Gas PEEP 6 cm H2O
[2018-08-24] MEDS ORDERED: Isovue-370 500 ML INFUS..BTL IV ONE (11:53)
--- NOTE | 2018-08-24 13:30 | Pulmonology Consult Note ---
Addendum entered and electronically signed by Zoraida Melendez DO 08/24/18 18:46: Assessment/Plan (1) Acute on chronic respiratory failure with hypoxia and hypercapnia Most likely d/t acute exacerbation of COPD Initial ABG: pH 7.43 / pCO2 77 / pO2 51 / HCO3 51 Hx of COPD--home oxygen dependent (4L at rest, 6L with activity) SpO2 91% on 4L in emergency department improved to mid 90's with NIPPV CXR shows no acute process, no pleural effusionappearance similar to CXR 05/19/18 Current ABG: pH 7.39 / pCO2 82 / pO2 67 / HCO3 50 On clinical exam: decreased breath sounds bilaterally, scattered wheezing, increased respiratory effort; no rales and no lower extremity edema BNP 85 and troponin < 0.03 Plan: CTA chest to rule out PE Overnight qualification for BiPAP NIPPV overnight while sleeping and when napping Will need outpatient pulmonology follow up once discharged Continue treatment of COPD exacerbation as below (2) Acute exacerbation of chronic obstructive airways disease Etiology of exacerbation doesnt appear cardiogenic Home oxygen dependent (4L at rest, 6L with activity) 2016 PFTs showed very severe airway obstructive pattern with significant response to bronchodilators BNP 85 and troponin < 0.03 No rales and no lower extremity edema on exam CXR negative for pleural effusion, costophrenic angles preserved 2016 limited echo: LVEF 65-70%, normal LV structure and function Infectious/PNA picture possible, but less likelyno leukocytosis, afebrile Influenza A/B negative Empiric abx azithromycin day 1 and ceftriaxone day 1 Plan: Continue scheduled bronchodilators, start symbicort Continue solumedrol 40 mg IV Q8H, should be able to switch to PO within next 48h Check respiratory infection panel and MRSA swab Sputum culture incubatingwill adjust abx accordingly Continue empiric abx (azithromycin and ceftriaxone) for now; plan to de-escalate within 48h based on workup results Will check alpha 1 antitrypsin level Educated on importance of smoking cessation to prevent further damage to lungs and preserve existing function, patient verbalized her understanding Educated patient on danger of smoking while wearing oxygen including sneed, fire, explosion and patient verbalized her understanding (3) Sleep-disordered breathing Admits snoring at night, no reported episodes of apnea Plan: Recommend outpatient sleep study for further evaluation and management Overnight BiPAP qualification (4) Tobacco abuse Current smoker; 3/4 ppd x 35 years Plan: Educated on importance of smoking cessation to prevent further damage to lungs and preserve existing function, patient verbalized her understanding Educated patient on danger of smoking while wearing oxygen including sneed, fire, explosion and patient verbalized her understanding Original Note: <Kody Ellington W - Last Filed: 08/24/18 15:08> Date of Encounter: 08/24/18 Medications and Allergies Aspirin 81 mg PO DAILY #90 tab.chew 08/14/17 [Rx] Atorvastatin [Lipitor] 40 mg PO HS #90 tablet 08/14/17 [Rx] Ipratropium/Albuterol Neb [Duoneb] 3 ml IH [id number] #240 inhsol 08/14/17 [Rx] Metoprolol [Lopressor] 12.5 mg PO BID #90 tablet 08/14/17 [Rx] Nitroglycerin 0.4 mg SL Q5MIN PRN #25 tab.subl 08/14/17 [Rx] Albuterol Sulfate [Proair Hfa] 2 puff IH Q4H 01/26/18 [History] BuPROPion SR (12 HR) [Wellbutrin SR] 150 mg PO BID 01/26/18 [History] Furosemide [Lasix] 20 mg PO DAILY PRN 01/26/18 [History] Mometasone/Formoterol [Dulera 200 Mcg/5 Mcg Inhaler] 1 puff IH DAILY 01/26/18 [History] Oxygen 1 each .ROUTE AD 01/26/18 [History] Umeclidinium [place] [Incruse Ellipta] 1 puff IH DAILY 01/26/18 [History] Allergy/AdvReac Type Severity Reaction Status Date / Time No Known Allergies Allergy Verified 01/26/18 17:40 All Systems: The remainder of the systems were reviewed and are negative Physical Examination Vital Signs: Vital Signs, Last 4 Hours Temp Pulse Resp BP Pulse Ox 08/24/18 11:21 23 96 08/24/18 11:06 98 F 75 22 145/83 93 Results - Laboratory Findings CBC and BMP: 08/23/18 20:42 08/24/18 13:29 ABG ABG pH 7.39 pH Units (7.32-7.45) 08/24/18 11:35 ABG pCO2 82 mmHg (35-45) H* 08/24/18 11:35 ABG pO2 67 mmHg (85-104) L 08/24/18 11:35 ABG O2 Saturation 91 % (95-98) L 08/24/18 11:35 Abnormal lab findings: Abnormal lab results ABG pCO2 82 mmHg (35-45) H* 08/24/18 11:35 ABG pO2 67 mmHg (85-104) L 08/24/18 11:35 ABG HCO3 50 mEq/L (21-27) H 08/24/18 11:35 ABG Total CO2 52 mEq/L (20-26) H 08/24/18 11:35 ABG O2 Saturation 91 % (95-98) L 08/24/18 11:35 ABG Base Excess 19 mEq/L (-2 to 3) H 08/24/18 11:35 Chloride 92 mEq/L (98-107) L 08/24/18 06:18 Carbon Dioxide 41 mEq/L (23-29) H* 08/24/18 06:18 Creatinine 0.40 mg/dL (0.60-1.20) L 08/24/18 06:18 BUN/Creatinine Ratio 33 (6-26) H 08/24/18 06:18 Glucose 294 mg/dL (70-105) H 08/24/18 06:18 Hemoglobin A1c 6.8 % (-5.6) H 08/24/18 04:10 Calculated Osmolality 301 (280-300) H 08/24/18 06:18 - Microbiology Findings Microbiology Findings: Microbiology, Last 48 Hours 08/24/18 09:12 Sputum Culture - Preliminary Sputum 08/24/18 09:44 Influenza Types A,B Antigen - Final Nasopharyngeal - Clinical Findings Intake & Output: Intake & Output 08/23/18 08/24/18 08/24/18 23:59 07:59 15:59 Intake Total 250 / 250 400 / 400 Output Total 250 / 250 Balance 0 / 0 400 / 400 Weight 102.569 kg Consult Discharge Plan - Plan Referrals: Joaquín Stuart DO [Partnered Physician] - NONE,PCP [Primary Care Provider] - - Attending Attestation I examined this patient and my medical decision-making was reviewed with the Resident Physician. I agree with the documented findings, disposition and treatment plan as described except to the extent set forth below. We independently had [id number] contact with the patient Patient seen and examined at bedside Labs, radiology, chart personally reviewed. Impression: * Acute on Chronic Hypoxic Hypercapnic Respiratory Failure * AECOPD (Very severe COPD with High Risk Features) - (FEV1 =23%pd with improvement to 30% 1 year ago) - suspect prolonged recovery time. * Tobacco Abuse * Suspected sleep-disordered breathing * Obesity Recs: -Agree with CTA Chest -Agree with Resp Infec Panel, MRSA screen, Sputum/Blood Cultures. -Agree with ABx (conchis lactam and Macrolide) with plan to deescalate based upon rest of w/u at 48 hours -Cont Bipap with sleep/naps, and increased WOB. Ok for prolonged breaks to eat - rest etc. -Qualification for home going NIV -IV steroids (40mg methylpred q 8)with transition to PO likely over next 48hours -Symbicort 160/4.5 2 puffs BID -Check A1AT level -I unequivocally expressed to the patient that in order for her survival chances to improve at all she would have to stop smoking a nd Patient was strongly advised not to smoke while using oxygen or near someone who is on oxygen- risks of sneed, fire and explosion were told and pt understood. -Outpatient PSG with Bipap titration -Weight loss encouraged <Zoraida Melendez - Last Filed: 08/24/18 17:26> Date of Encounter: 08/24/18 Time of Encounter: 13:29 Assessment and Plan (1) Acute on chronic respiratory failure with hypoxia and hypercapnia Current Visit: Yes Status: Acute Hx of COPD--home oxygen dependent (4L at rest, 6L with activity) SpO2 91% on 4L in emergency department improved to mid 90's with NIPPV Initial ABG: pH 7.43 / pCO2 77 / pO2 51 / HCO3 51 ---> Plan: Overnight qualification for BiPAP (2) Acute exacerbation of chronic obstructive airways disease Current Visit: Yes Status: Acute (3) Sleep-disordered breathing Current Visit: Yes Status: Acute Admits snoring at night, no reported episodes of apnea Has never had a sleep study Plan: Consider outpatient sleep study for further evaluation and management (4) Tobacco abuse Current Visit: Yes Status: Chronic Current smoker 3/4 ppd Patient cautioned not to smoke while wearing her oxygen as it may result in serious sneed History of Present Illness Consult date: 08/24/18 Requesting physician: Marcos Thomas Reason for consult: COPD, pulmonary fibrosis Chief complaint: difficulty in breathing History of present illness: Ms. Davila is a 53-year-old female with PMH of oxygen dependent CO2 (4 L nasal cannula at rest, 6 L while walking), HTN, and NSTEMI who presented to the emerg ency department yesterday with c/o progressive difficulty in breathing x 2 weeks and felt like she was "getting pneumonia." This is her third visit to the hospital for difficulty breathing this year, most recently on 05/19/18. She admits to increased frequency of cough; yellowishgreen and brownish sputum production which is new for her, normally has nonproductive cough. Patient states her home inhalers have not helped her shortness of breath, but admits she doesn't use her inhalers for COPD on regular basis as directed. She reports confusional state yesterday (resolved in the ED after placed on NIPPV). She denies associated fevers, chills, nausea, vomiting, chest pain or chest pressure, wheezing, and abdominal pain. She does admit to increased lower extremity edema 1 week. Patient is a current smoker, reports she has been smoking 3/4 ppd x35 years. 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 There are no pets in the house, no birds, no exotic animals. She admits to snoring at night, but has never been told she stops breathing at night--no sleep study in the past. Last PFTs done 09/2017 showed severe to very severe airway obstructive pattern with significant response to bronchodilators. Patient doesn't currently follow a ham marker, but has been seen by Dr. Seymour in the past. She is up-to-date on her influenza and pneumonia vaccinations. Past Med Surg Social Fam HX - Past Medical History Medical history: COPD, hypertension Psychiatric history: depression - Past Surgical History Surgical History: cholecystectomy - Social History Smoking Status: Current every day smoker Smokeless Tobacco Status: No Alcohol use: none Drug use: none - Family History Mother Adopted: [place]: [place] Family Member Ethnicity: Non- Living Status: Age at : 57 Hx Family Cardiac Disorders: Yes Hx Family Respiratory Disorders: No Hx Family Cancer: No Hx Family Endocrine Disorder: Yes All Systems: The remainder of the systems were reviewed and are negative - Constitutional Constitutional: as per HPI, no chills, no fever(s) - EENT Nose, mouth and throat: no headache(s), no sore throat - Cardiovascular Cardiovascular: as per HPI, dyspnea, dyspnea on exertion, leg edema, no chest pain - Respiratory Respiratory: as per HPI, cough, dyspnea, change in phlegm color, no hemoptysis, no wheezing, no pain with cough - Gastrointestinal Gastrointestinal: as per HPI, no abdominal pain, no nausea, no vomiting - Neurological Neurological: no confusion (has resolved) Physical Examination Vital Signs: Vital Signs, Last 4 Hours Temp Pulse Resp BP Pulse Ox 08/24/18 11:21 23 96 08/24/18 11:06 98 F 75 22 145/83 93 General appearance: no acute distress, alert Eyes: nonicteric ENT: oropharynx dry Neck: supple Effort: mildly labored Inspection: normal Auscultation: bilateral: diminished breath sounds, wheezes (scattered) Cardiovascular: regular rate and rhythm Gastrointestinal: soft, non-tender, non-distended Integumentary: normal Extremities: no cyanosis, no edema, pink and warm, pulses normal Musculoskeletal: no deformities normal mental status, non-focal exam, pupils equal and round, CN II-XII normal Results - Laboratory Findings CBC and BMP: 08/23/18 20:42 08/24/18 13:29 ABG ABG pH 7.39 pH Units (7.32-7.45) 08/24/18 11:35 ABG pCO2 82 mmHg (35-45) H* 08/24/18 11:35 ABG pO2 67 mmHg (85-104) L 08/24/18 11:35 ABG O2 Saturation 91 % (95-98) L 08/24/18 11:35 Abnormal lab findings: Abnormal lab results ABG pCO2 82 mmHg (35-45) H* 08/24/18 11:35 ABG pO2 67 mmHg (85-104) L 08/24/18 11:35 ABG HCO3 50 mEq/L (21-27) H 08/24/18 11:35 ABG Total CO2 52 mEq/L (20-26) H 08/24/18 11:35 ABG O2 Saturation 91 % (95-98) L 08/24/18 11:35 ABG Base Excess 19 mEq/L (-2 to 3) H 08/24/18 11:35 Potassium 5.2 mEq/L (3.5-5.1) H 08/24/18 06:18 Chloride 92 mEq/L (98-107) L 08/24/18 06:18 Carbon Dioxide 41 mEq/L (23-29) H* 08/24/18 06:18 Creatinine 0.40 mg/dL (0.60-1.20) L 08/24/18 06:18 BUN/Creatinine Ratio 33 (6-26) H 08/24/18 06:18 Glucose 294 mg/dL (70-105) H 08/24/18 06:18 Hemoglobin A1c 6.8 % (-5.6) H 08/24/18 04:10 Calculated Osmolality 301 (280-300) H 08/24/18 06:18 - Microbiology Findings Microbiology Findings: Microbiology, Last 48 Hours 08/24/18 09:12 Sputum Culture - Preliminary Sputum 08/24/18 09:44 Influenza Types A,B Antigen - Final Nasopharyngeal - Clinical Findings Intake & Output: Intake & Output 08/23/18 08/24/18 08/24/18 23:59 07:59 15:59 Intake Total 250 / 250 400 / 400 Output Total 250 / 250 Balance 0 / 0 400 / 400 Weight 102.569 kg
[2018-08-24 16:39] LABS: ABG Base Excess 16 mEq/L (-2 to 3); ABG HCO3 45 mEq/L (21-27); ABG Oxygen Saturation 89 % (95-98); ABG PCO2 67 mmHg (35-45); ABG PH 7.43 pH Units (7.32-7.45); ABG PO2 58 mmHg (85-104); ABG TCO2 47 mEq/L (20-26)
[2018-08-24] MEDS: *HR* Enoxaparin 100 MG/ML SYRINGE SQ SCH (18:00)
[2018-08-24] MEDS: Budesonide/Formoterol 160/4.5 1 PUFF INH IH SCH (19:55)
[2018-08-24 22:08] LABS: Adenovirus Not Detected (Not Detect); Coronavirus 229E Not Detected (Not Detect); Coronavirus HKU1 Not Detected (Not Detect); Coronavirus NL63 Not Detected (Not Detect); Coronavirus OC43 Not Detected (Not Detect); Human Metapneumovirus Not Detected (Not Detect); Human Rhinovirus/Enterovirus DETECTED (Not Detect)
[2018-08-24 22:11] LABS: Bordetella Pertussis Not Detected (Not Detect); Chlamydophila pneumoniae Not Detected (Not Detect); Influenza A Subtype 2009 H1 Not Detected (Not Detect); Influenza A Untypeable Not Detected (Not Detect); Influenza B Not Detected (Not Detect); Mycoplasma pneumoniae Not Detected (Not Detect); Parainfluenza Virus 1 Not Detected (Not Detect); Parainfluenza Virus 2 Not Detected (Not Detect); Parainfluenza Virus 3 Not Detected (Not Detect); Parainfluenza Virus 4 Not Detected (Not Detect); Respiratory Syncytial Virus Not Detected (Not Detect)
[2018-08-25] MEDS: Nicotine 14 MG PATCH.TD24 TD SCH ×2 (00:12→23:26)
[2018-08-25] MEDS: Ipratropium/Albuterol Neb 3 ML IH SCH ×6 (03:35→23:47)
[2018-08-25] MEDS: *HR* Enoxaparin 100 MG/ML SYRINGE SQ SCH ×2 (05:01→17:46)
[2018-08-25 05:18] LABS: Hematocrit 42.7 % (35.3-44.9); Hemoglobin 13.5 g/dL (11.5-15.4); Mean Corpuscular HGB Conc 31.6 g/dL (31.6-35.5); Mean Corpuscular Hemoglobin 30.9 pg (28.0-33.3); Mean Corpuscular Volume 97.7 fL (83.0-100.0); Mean Platelet Volume 9.8 fL (9.4-12.4); Platelet Count 234 K/mcL (140-400); Red Blood Count 4.37 M/mcL (3.82-4.97); Red Cell Distribution Width 13.1 % (11.5-14.5)
[2018-08-25 05:39] LABS: BUN/Creatinine Ratio 41 (6-26); Blood Urea Nitrogen 19 mg/dL (6-20); Calcium 8.8 mg/dL (8.6-10.3); Carbon Dioxide 43 mEq/L (23-29); Chloride 90 mEq/L (98-107); Glucose 170 mg/dL (70-105); Osmolality,Calculated 294 (280-300); Potassium 4.1 mEq/L (3.5-5.1); Sodium 139 mEq/L (136-145); eGFR For Non-African Americans > 60 (> 60)
--- NOTE | 2018-08-25 06:05 | Internal Med Progress Note ---
<Marcos Thomas Chidi - Last Filed: 08/25/18 11:56> Hospitalist Progress Note - Encounter Date of Encounter: 08/25/18 Time of Encounter: 08:00 - Subjective Interval History: Sitting up in bed on NC. She says she feels her breathing is better. Has had yellow/green productive cough. She denies blurry vision, diplopia, dizziness/lightheadedness, chest pain, pleuritic chest pain, abdominal pain, N/V. - Exam Vitals: Temp Pulse Resp BP Pulse Ox 97.9 F 63 19 117/76 94 08/25/18 03:29 08/25/18 03:29 08/25/18 03:35 08/25/18 03:29 08/25/18 03:35 Exam: General: Awake, alert, no acute resp distress or signs of toxicity Head: Atraumatic, normocephalic, Eye: Normal appearance, pupils equal and round, EOMi, no scleral icterus, no conjunctival injection ENT: Mucous membranes dry Neck: Normal inspection, trachea midline Chest: Symmetric chest rise, non tender to palpation Respiratory: Normal resp effort, increased exp phase, decreased breath sounds bilaterally, crackles L base, scattered exp wheezing Cardiovascular: RRR, S1/S2+, no murmurs, rubs, gallops, radial pulse 2+ bilat, no edema Abdomen: Soft, nontender, nondistended, no guarding, rebound, or organomegaly Musculoskeletal: Spontaneously moving all extremities, no calf tenderness Skin: Warm, dry, intact. Neuro: Cranial nerves 2-12 grossly intact, no focal deficits Psych: Normal affect - Assessment and Plan (1) Acute on chronic respiratory failure with hypoxia and hypercapnia Current Visit: Yes Status: Acute Assessment and Plan: -Likely 2/2 COPD exacerbation -Initial ABG pH 7.38, pCO2 76, pO2 60 on 4L NC -Repeat 7.43, 77, 51 on 40% FiO2 BiPAP -Placed on BiPAP which was continued overnight -Confusion resolved with BiPAP -CXR 08/23/18 no acute findings -On steroids, q4h duonebs -Most recent ABG pH 7.43, pCO2 67, pO2 58 on 4%% FiO2 BiPAP -Increased FiO2 to 50% this morning -CTA chest 08/24/18 equivocal for PE, Mild diffuse bilateral tree-in-bud appearance within both lungs. Atypical pulmonary infection is suspected. Soft tissue density within the left upper lobe measuring 2 cm near the left main pulmonary artery likely representing a hilar lymph node. There is associated mild mediastinal adenopathy that is likely reactive. -Resp PCR pos for entero/rhinovirus -Pulm on board -Qualified for home BiPAP -Will continue steroids, nebs (2) Acute exacerbation of chronic obstructive airways disease Current Visit: Yes Status: Acute Assessment and Plan: -Green productive cough, increasing dyspnea and hypoxic/hypercarbic resp failure on arrival -WBC 7.6 and afebrile on arrival -Current daily smoker -Sputum culture pending -Rapid flu pending -Resp PCR pos for entero/rhinovirus -Started on 500mg azithromycin at admission -Decrease azithromycin to 250mg for total 5 days, stop date 08/27/18 -Ceftriaxone stopped as PCR pos for entero/rhino virus -Afebrile -Required BiPAP with combined metabolic alkalosis and resp acidosis with hypoxia on ABG -Transitioned today to NC during day with nocturnal BiPAP -Pulm on board -Symbicort BID added -Continue IV steroids today and transition to PO tomorrow with 2 week taper -Continue scheduled duonebs, and abx today -Continue BiPAP at night and nc during day (3) Diabetes mellitus Current Visit: Yes Status: Chronic Assessment and Plan: -Prior A1C year ago 6.7% -No home antihyperglycemics -Repeat A1C 6.8% -Glucose 170 this morning -Continue low SSI (4) Hypertension Current Visit: Yes Status: Acute Assessment and Plan: -Hx of HTN -BP 154/91 on arrival -160/93 most recent but labile overnight with BP 111/73 as low -Home metoprolol started -Will increase BB if continues to trend high and monitor BP (5) Hyperkalemia Current Visit: Yes Status: Acute Assessment and Plan: -K 4.4 on arrival -K down to 4.1 this morning after kayexalate yst when K 5.2 -Monitor BMP (6) Tobacco abuse Current Visit: Yes Status: Chronic Assessment and Plan: -Recommend cessation at dc -Nicotine patch (7) Pulmonary embolus Current Visit: Yes Status: Acute Assessment and Plan: -CTA chest 08/24/18 equivocal for PE -Started on therapeutic enoxaparin -Repeat CTA this morning -Will decrease therapeutic anticoagulation if neg DVT Prophylaxis: Enoxaparin - Time Spent with Patient Total time spent is greater than 50% in coordination of care (as documented) at patient's floor/unit and/or counseling patient: 25 - 35 minutes Plan of Care Discussed with: patient Internal Medicine: Result - Labs CBC & Chem 7: 08/25/18 05:05 08/25/18 05:05 Labs: Short CBC 08/25/18 Range/Units 05:05 WBC 10.9 (4.3-11.1) K/mcL Hgb 13.5 (11.5-15.4) g/dL Hct 42.7 (35.3-44.9) % Plt Count 234 (140-400) K/mcL BMP 08/24/18 08/24/18 08/25/18 06:18 13:29 05:05 Sodium 140 139 Potassium 5.2 H 3.9 4.1 Chloride 92 L 90 L Carbon Dioxide 41 H* 43 H* BUN 13 19 Creatinine 0.40 L 0.46 L Glucose 294 H 170 H Calcium 9.4 8.8 - ABG Interpretation ABG results: ABG ABG pH 7.43 pH Units (7.32-7.45) 08/24/18 16:36 ABG pCO2 67 mmHg (35-45) H 08/24/18 16:36 ABG pO2 58 mmHg (85-104) L 08/24/18 16:36 ABG O2 Saturation 89 % (95-98) L 08/24/18 16:36 - Impressions Impressions Chest CTA 08/24/18 11:53 IMPRESSION: Several small filling defects within the right lower lobe that are equivocal for pulmonary emboli. These changes could be related to streak artifact from contrast within the SVC. Short-term follow-up PE CT study could be performed for confirmation. Soft tissue density within the left upper lobe measuring 2 cm near the left main pulmonary artery likely representing a hilar lymph node. There is associated mild mediastinal adenopathy that is likely reactive. Mild diffuse bilateral tree-in-bud appearance within both lungs. Atypical pulmonary infection is suspected. 3.4 cm left adrenal mass that most likely represents an atypical left adrenal adenoma. The abnormality is present on previous MRI of the lumbar spine of 05/26/2011. The results examination were discussed with Dr. Fields on 08/24/2018 at 5:01 p.m. D/ / 08/24/2018 17:09:23 Ayaz Escudero MD / [email or web address] Interpreting Provider: Ayaz Escudero MD Consult Discharge Plan - Plan Referrals: Joaquín Stuart DO [Partnered Physician] - NONE,PCP [Primary Care Provider] - <Devika Dover - Last Filed: 08/25/18 19:26> Hospitalist Progress Note - Encounter Date of Encounter: 08/25/18 - Exam Vitals: Temp Pulse Resp BP Pulse Ox 97.8 F 85 24 163/85 92 08/25/18 16:09 08/25/18 16:09 08/25/18 16:22 08/25/18 16:09 08/25/18 16:22 - Assessment and Plan (1) Tobacco abuse Current Visit: Yes Status: Chronic (2) Diabetes mellitus Current Visit: Yes Status: Chronic (3) Acute exacerbation of chronic obstructive airways disease Current Visit: Yes Status: Acute (4) Hypertension Current Visit: Yes Status: Acute (5) Hyperkalemia Current Visit: Yes Status: Acute (6) Acute on chronic respiratory failure with hypoxia and hypercapnia Current Visit: Yes Status: Acute (7) Pulmonary embolus Current Visit: Yes Status: Acute - Time Spent with Patient Total time spent is greater than 50% in coordination of care (as documented) at patient's floor/unit and/or counseling patient: Internal Medicine: Result - Labs CBC & Chem 7: 08/25/18 05:05 08/25/18 05:05 Labs: Short CBC 08/25/18 Range/Units 05:05 WBC 10.9 (4.3-11.1) K/mcL Hgb 13.5 (11.5-15.4) g/dL Hct 42.7 (35.3-44.9) % Plt Count 234 (140-400) K/mcL BMP 08/25/18 05:05 Sodium 139 Potassium 4.1 Chloride 90 L Carbon Dioxide 43 H* BUN 19 Creatinine 0.46 L Glucose 170 H Calcium 8.8 - ABG Interpretation ABG results: ABG ABG pH 7.43 pH Units (7.32-7.45) 08/24/18 16:36 ABG pCO2 67 mmHg (35-45) H 08/24/18 16:36 ABG pO2 58 mmHg (85-104) L 08/24/18 16:36 ABG O2 Saturation 89 % (95-98) L 08/24/18 16:36 - Impressions Impressions Chest CTA 08/25/18 09:45 IMPRESSION: 1. No pulmonary embolism. 2. Diffuse bilateral tree-in-bud micronodularity within the lungs, as demonstrated on yesterday's chest CT. Findings are likely due to atypical infection/bronchiolitis. 3. Stable bilateral hilar lymphadenopathy, which is most likely reactive. 4. Stable 4 cm left adrenal mass, which is most likely a benign adenoma given the lack of change from the MRI lumbar spine from 2010. D/ / 08/25/2018 12:23:21 Rogelio Hopkins MD / tera [email or web address] Interpreting Provider: Rogelio Hopkins MD - Attending Attestation I examined this patient and my medical decision-making was reviewed with the Resident Physician Dr Thomas. I agree with the documented findings, disposition and treatment plan as described except to the extent set forth below/addl details below Ms Davila was admitted with Hypercapnic resp failure with hx copd. She is being treated for copd exacerbation given recent symptom report. awake, off bipap, feeling comfortable on o2 nc. + cough, + green sputum, + wheezing, no cp, pressure, le edema, fevers or chills. beginning to improve gen- awake, alert cv- reg rate and rhythm, normal s1,s2, no murmurs appreciated, no le edema lungs- diffuse exp wheezing, no rhonchi or crackles, diminished bs bl, norm resp effort on o2 nc abd- soft, non tender, non distended, + bs neuro- AAOx3 acute on chronic Hypoxic and Hypercapnic Resp failure Suspected 2/2 copd exacerbation given sob and green sputum with cough -repeat ct without PE- can dc therapeutic lovenox -azithro + steroids and standing nebs + entero/rhino virus -pulm following -uses 6L NC at home -will need repeat ct chest in 4-6 weeks outpt DM with a1c 6.8- SSI and hold oral med at this time, will need to fu outpt Chronic Diastolic CHF, appears euvolemic on exam, CXR without effusions most recent echo 2016 with EF 65-70% and no significant findings noted -strict i/os, weights, cont home lasix po daily, cont home asa + statin + bb, unknown why not on acei/arb at home further diagnoses and plan as documented by resident <Marcos Thomas - Last Filed: 08/25/18 11:56> (3) Diabetes mellitus Qualifiers: Diabetes mellitus type: type 2 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: without longterm use Diabetes mellitus complication status: with unspecified complications Qualified Code(s): E11.8 - Type 2 diabetes mellitus with unspecified complications (4) Hypertension Qualifiers: Hypertension type: essential hypertension Qualified Code(s): I10 - Essential (primary) hypertension (7) Pulmonary embolus Qualifiers: Acute cor pulmonale presence: without acute cor pulmonale Qualified Code(s): I26.99 - Other pulmonary embolism without acute cor pulmonale <Devika Dover - Last Filed: 08/25/18 19:26> (2) Diabetes mellitus Qualifiers: Diabetes mellitus type: type 2 Diabetes mellitus longterm insulin use: without longterm use Diabetes mellitus complication status: with unspecified complications Qualified Code(s): E11.8 - Type 2 diabetes mellitus with unspecified complications (4) Hypertension Qualifiers: Hypertension type: essential hypertension Qualified Code(s): I10 - Essential (primary) hypertension (7) Pulmonary embolus Qualifiers: Acute cor pulmonale presence: without acute cor pulmonale Qualified Code(s): I26.99 - Other pulmonary embolism without acute cor pulmonale
--- NOTE | 2018-08-25 06:54 | Pulmonology Progress Note ---
Date of Encounter: 08/25/18 Time of Encounter: 06:54 Assessment and Plan (1) Acute on chronic respiratory failure with hypoxia and hypercapnia Current Visit: Yes Status: Acute Patient has acute on chronic hypoxic hypercapnic respiratory failure likely se condary to COPD exacerbation possibly precipitated by acute infectious process. Recommend nasal cannula during the day and BiPAP with naps and at night with sleeping. Overnight qualification for home-going BiPAP Encourage incentive spirometry out of bed to chair and early ambulation to combat the effects of VQ mismatching from atelectasis (2) Pulmonary embolus Current Visit: Yes Status: Acute I reviewed the CT angiogram I believe that this is equivocal diagnosis of acute pulmonary embolus and is primarily and subsegmental branches. There is already growing controversy I will to do about acute said segmental incidentally found pulmonary embolus within the medical literature At this point I think the safest thing to do is continue therapeutic dosing of Lovenox as you are doing Send patient for lower extremity duplex to rule out DVT Send d-dimer Repeat CTA of chest tomorrow If workup above is negative or remains equivocal I would favor not treating aggressively i.e. anticoagulation Qualifiers: Acute cor pulmonale presence: without acute cor pulmonale Qualified Code(s): I26.99 - Other pulmonary embolism without acute cor pulmonale (3) Bronchiolitis Current Visit: Yes Status: Acute Patient has acute evidence of viral infection is unclear to me that this is precipitated the bronchiolitis pattern on CT scan I favor that this actually respiratory bronchiolitis ILD secondary to smoking or would be termed "smoking- related lung disease" Would continue current treatments of antimicrobials and steroids - I suspect based upon these findings at the beta-lactam can be stopped Reemphasized tobacco cessation Repeat CT scan in 4-6 weeks in outpatient setting (4) Acute exacerbation of chronic obstructive airways disease Current Visit: Yes Status: Acute Would continue IV steroids today and transitioned to enteral formulation (prednisone 40 mg) to complete two-week taper Continue schedule bronchodilators and combination inhaled corticosteroid/long- acting beta agonist (5) Sleep-disordered breathing Current Visit: Yes Status: Acute Outpatient sleep study on BiPAP (6) Tobacco abuse Current Visit: Yes Status: Chronic Tobacco abuse counseling given Subjective Principal diagnosis: AECOPD Interval history: No acute events overnight. Ms. Davila says that she is feeling a little bit better today and she looks more comfortable. She is wearing BiPAP at night currently on nasal cannula oxygen saturation 80% on 5-6 L Objective PUL Vital signs: Last Vital Signs Temp 97.9 F 08/25/18 03:29 Pulse 63 08/25/18 03:29 Resp 19 08/25/18 03:35 BP 117/76 08/25/18 03:29 Pulse Ox 94 08/25/18 03:35 General appearance: no acute distress Eyes: nonicteric ENT: oropharynx moist Neck: supple, no lymphadenopathy Effort: mildly labored Auscultation: bilateral: wheezes (Faint expiratory wheeze but improved from previous day's examination), rhonchi (Scattered) Cardiovascular: regular rate and rhythm Gastrointestinal: normoactive bowel sounds, soft, non-tender Extremities: edema (Trace bilateral pitting edema) Musculoskeletal: no deformities normal mental status, non-focal exam mood appropriate Results - Laboratory Findings CBC and BMP: 08/25/18 05:05 08/25/18 05:05 ABG ABG pH 7.43 pH Units (7.32-7.45) 08/24/18 16:36 ABG pCO2 67 mmHg (35-45) H 08/24/18 16:36 ABG pO2 58 mmHg (85-104) L 08/24/18 16:36 ABG O2 Saturation 89 % (95-98) L 08/24/18 16:36 Abnormal lab findings: Abnormal lab results ABG pCO2 67 mmHg (35-45) H 08/24/18 16:36 ABG pO2 58 mmHg (85-104) L 08/24/18 16:36 ABG HCO3 45 mEq/L (21-27) H 08/24/18 16:36 ABG Total CO2 47 mEq/L (20-26) H 08/24/18 16:36 ABG O2 Saturation 89 % (95-98) L 08/24/18 16:36 ABG Base Excess 16 mEq/L (-2 to 3) H 08/24/18 16:36 Chloride 90 mEq/L (98-107) L 08/25/18 05:05 Carbon Dioxide 43 mEq/L (23-29) H* 08/25/18 05:05 Creatinine 0.46 mg/dL (0.60-1.20) L 08/25/18 05:05 BUN/Creatinine Ratio 41 (6-26) H 08/25/18 05:05 Glucose 170 mg/dL (70-105) H 08/25/18 05:05 POC Glucose 298 mg/dL (70-99) H 08/24/18 17:36 Hemoglobin A1c 6.8 % (-5.6) H 08/24/18 04:10 Entero/Rhino (PCR) DETECTED (Not Detect) A 08/24/18 16:20 - Microbiology Findings Microbiology Findings: Microbiology, Last 48 Hours 08/24/18 09:12 Sputum Culture - Preliminary Sputum 08/24/18 09:44 Influenza Types A,B Antigen - Final Nasopharyngeal - Diagnostic Findings Chest x-ray: report reviewed, image reviewed CT scan - chest: report reviewed, image reviewed - Clinical Findings Intake & Output: Intake & Output 08/24/18 08/24/18 08/25/18 15:59 23:59 07:59 Intake Total 400 / 400 720 / 720 Output Total 500 / 500 Balance 400 / 400 220 / 220 Weight 103.4 kg Consult Discharge Plan - Plan Referrals: Joaquín Stuart DO [Partnered Physician] - NONE,PCP [Primary Care Provider] -
[2018-08-25] MEDS: Budesonide/Formoterol 160/4.5 1 PUFF INH IH SCH ×2 (08:02→19:56)
[2018-08-25] MEDS ORDERED: Isovue-370 500 ML INFUS..BTL IV ONE (08:12)
[2018-08-25] MEDS: MethylPREDNISolone 40 MG/ML VIAL IVP SCH ×3 (08:29→23:26)
[2018-08-25] MEDS: cefTRIAXone 2,000 MG in 0.9 % Sodium Chloride Mini Bag 100 ML IVPB SCH (08:29)
[2018-08-25] MEDS: BuPROPion SR (12 HR) 150 MG TABLET PO SCH ×2 (08:29→20:26)
[2018-08-25] MEDS: Aspirin 81 MG TAB.CHEW PO SCH (08:29)
[2018-08-25] MEDS: Furosemide 20 MG TABLET PO SCH (08:29)
[2018-08-25] MEDS: Insulin LISPRO 300 UNITS/3 ML VIAL SQ SCH ×4 (08:33→20:27)
[2018-08-25] MEDS ORDERED: Azithromycin 250 MG in D5% in Water 250 ML IVPB SCH ×2 (12:00→12:45)
[2018-08-25] MEDS ORDERED: MethylPREDNISolone 40 MG/ML VIAL IVP SCH (17:00)
[2018-08-26] MEDS: Ipratropium/Albuterol Neb 3 ML IH SCH ×3 (03:52→11:26)
[2018-08-26 05:34] LABS: Hematocrit 43.1 % (35.3-44.9); Hemoglobin 13.8 g/dL (11.5-15.4); Mean Corpuscular Volume 96.9 fL (83.0-100.0); Mean Platelet Volume 9.7 fL (9.4-12.4); Platelet Count 216 K/mcL (140-400); Red Blood Count 4.45 M/mcL (3.82-4.97); Red Cell Distribution Width 12.9 % (11.5-14.5)
[2018-08-26 05:50] LABS: BUN/Creatinine Ratio 33 (6-26); Blood Urea Nitrogen 15 mg/dL (6-20); Carbon Dioxide 42 mEq/L (23-29); Chloride 93 mEq/L (98-107); Glucose 239 mg/dL (70-105); Osmolality,Calculated 293 (280-300); Potassium 4.7 mEq/L (3.5-5.1); Sodium 137 mEq/L (136-145); eGFR For Non-African Americans > 60 (> 60)
--- NOTE | 2018-08-26 06:05 | Internal Med Progress Note ---
Hospitalist Progress Note - Encounter Date of Encounter: 08/26/18 - Subjective Interval History: Sitting up in bed on NC. She says she feels her breathing is better. Has had yellow/green productive cough. She denies blurry vision, diplopia, dizziness/lightheadedness, chest pain, pleuritic chest pain, abdominal pain, N/V. - Exam Vitals: Temp Pulse Resp BP Pulse Ox 97.9 F 70 17 140/80 93 08/26/18 04:04 08/26/18 04:04 08/26/18 04:04 08/26/18 04:04 08/26/18 04:04 - Assessment and Plan (1) Acute on chronic respiratory failure with hypoxia and hypercapnia Current Visit: Yes Status: Acute (2) Acute exacerbation of chronic obstructive airways disease Current Visit: Yes Status: Acute (3) Pulmonary embolus Current Visit: Yes Status: Acute (4) Diabetes mellitus Current Visit: Yes Status: Chronic (5) Hypertension Current Visit: Yes Status: Acute (6) Hyperkalemia Current Visit: Yes Status: Acute (7) Tobacco abuse Current Visit: Yes Status: Chronic - Time Spent with Patient Total time spent is greater than 50% in coordination of care (as documented) at patient's floor/unit and/or counseling patient: Internal Medicine: Result - Labs CBC & Chem 7: 08/26/18 05:05 08/26/18 05:05 Labs: Short CBC 08/26/18 Range/Units 05:05 WBC 7.0 (4.3-11.1) K/mcL Hgb 13.8 (11.5-15.4) g/dL Hct 43.1 (35.3-44.9) % Plt Count 216 (140-400) K/mcL BMP 08/26/18 05:05 Sodium 137 Potassium 4.7 Chloride 93 L Carbon Dioxide 42 H* BUN 15 Creatinine 0.45 L Glucose 239 H Calcium 9.0 - ABG Interpretation ABG results: ABG ABG pH 7.43 pH Units (7.32-7.45) 08/24/18 16:36 ABG pCO2 67 mmHg (35-45) H 08/24/18 16:36 ABG pO2 58 mmHg (85-104) L 08/24/18 16:36 ABG O2 Saturation 89 % (95-98) L 08/24/18 16:36 - Impressions Impressions Chest CTA 08/25/18 09:45 IMPRESSION: 1. No pulmonary embolism. 2. Diffuse bilateral tree-in-bud micronodularity within the lungs, as demonstrated on yesterday's chest CT. Findings are likely due to atypical infection/bronchiolitis. 3. Stable bilateral hilar lymphadenopathy, which is most likely reactive. 4. Stable 4 cm left adrenal mass, which is most likely a benign adenoma given the lack of change from the MRI lumbar spine from 2010. D/ / 08/25/2018 12:23:21 Rogelio Hopkins MD / michelle Interpreting Provider: Rogelio Hopkins MD Consult Discharge Plan - Plan Referrals: Joaquín Stuart DO [Partnered Physician] - NONE,PCP [Primary Care Provider] - (3) Pulmonary embolus Qualifiers: Acute cor pulmonale presence: without acute cor pulmonale Qualified Code(s): I26.99 - Other pulmonary embolism without acute cor pulmonale (4) Diabetes mellitus Qualifiers: Diabetes mellitus type: type 2 Diabetes mellitus intervention specialist insulin use: without intervention specialist use Diabetes mellitus complication status: with unspecified complications Qualified Code(s): E11.8 - Type 2 diabetes mellitus with unspecified complications (5) Hypertension Qualifiers: Hypertension type: essential hypertension Qualified Code(s): I10 - Essential (primary) hypertension
[2018-08-26] MEDS ORDERED: *HR* Enoxaparin 100 MG/ML SYRINGE SQ SCH (07:00)
[2018-08-26] MEDS: Budesonide/Formoterol 160/4.5 1 PUFF INH IH SCH (07:21)
--- NOTE | 2018-08-26 07:36 | Pulmonology Progress Note ---
Date of Encounter: 08/26/18 Time of Encounter: 07:36 Assessment and Plan (1) Acute on chronic respiratory failure with hypoxia and hypercapnia Current Visit: Yes Status: Acute Patient has acute on chronic hypoxic hypercapnic respiratory failure likely se condary to COPD exacerbation possibly precipitated by acute infectious process. Recommend nasal cannula during the day and BiPAP with naps and at night with sleeping. Overnight qualification for home-going BiPAP Encourage incentive spirometry out of bed to chair and early ambulation to combat the effects of VQ mismatching from atelectasis (2) Pulmonary embolus Current Visit: Yes Status: Acute I reviewed the CT angiogram I believe that this is equivocal diagnosis of acute pulmonary embolus and is primarily and subsegmental branches. There is already growing controversy I will to do about acute said segmental incidentally found pulmonary embolus within the medical literature At this point I think the safest thing to do is continue therapeutic dosing of Lovenox as you are doing Send patient for lower extremity duplex to rule out DVT Send d-dimer Repeat CTA of chest tomorrow If workup above is negative or remains equivocal I would favor not treating aggressively i.e. anticoagulation Qualifiers: Acute cor pulmonale presence: without acute cor pulmonale Qualified Code(s): I26.99 - Other pulmonary embolism without acute cor pulmonale (3) Bronchiolitis Current Visit: Yes Status: Acute Patient has acute evidence of viral infection is unclear to me that this is precipitated the bronchiolitis pattern on CT scan I favor that this actually respiratory bronchiolitis ILD secondary to smoking or would be termed "smoking- related lung disease" Would continue current treatments of antimicrobials and steroids - I suspect based upon these findings at the beta-lactam can be stopped Reemphasized tobacco cessation Repeat CT scan in 4-6 weeks in outpatient setting (4) Acute exacerbation of chronic obstructive airways disease Current Visit: Yes Status: Acute Would continue IV steroids today and transitioned to enteral formulation (prednisone 40 mg) to complete two-week taper Continue schedule bronchodilators and combination inhaled corticosteroid/long- acting beta agonist (5) Sleep-disordered breathing Current Visit: Yes Status: Acute Outpatient sleep study on BiPAP (6) Tobacco abuse Current Visit: Yes Status: Chronic Tobacco abuse counseling given Subjective Principal diagnosis: AECOPD Interval history: No acute events overnight. Ms. Davila says that she is feeling a little bit better today and she looks more comfortable. She is wearing BiPAP at night currently on nasal cannula oxygen saturation 80% on 5-6 L Objective PUL Vital signs: Last Vital Signs Temp 98.5 F 08/26/18 07:08 Pulse 71 08/26/18 07:08 Resp 18 08/26/18 07:21 BP 149/87 08/26/18 07:08 Pulse Ox 96 08/26/18 07:21 Results - Laboratory Findings CBC and BMP: 08/26/18 05:05 08/26/18 05:05 ABG ABG pH 7.43 pH Units (7.32-7.45) 08/24/18 16:36 ABG pCO2 67 mmHg (35-45) H 08/24/18 16:36 ABG pO2 58 mmHg (85-104) L 08/24/18 16:36 ABG O2 Saturation 89 % (95-98) L 08/24/18 16:36 Abnormal lab findings: Abnormal lab results ABG pCO2 67 mmHg (35-45) H 08/24/18 16:36 ABG pO2 58 mmHg (85-104) L 08/24/18 16:36 ABG HCO3 45 mEq/L (21-27) H 08/24/18 16:36 ABG Total CO2 47 mEq/L (20-26) H 08/24/18 16:36 ABG O2 Saturation 89 % (95-98) L 08/24/18 16:36 ABG Base Excess 16 mEq/L (-2 to 3) H 08/24/18 16:36 Chloride 93 mEq/L (98-107) L 08/26/18 05:05 Carbon Dioxide 42 mEq/L (23-29) H* 08/26/18 05:05 Creatinine 0.45 mg/dL (0.60-1.20) L 08/26/18 05:05 BUN/Creatinine Ratio 33 (6-26) H 08/26/18 05:05 Glucose 239 mg/dL (70-105) H 08/26/18 05:05 POC Glucose 149 mg/dL (70-99) H 08/25/18 19:47 Hemoglobin A1c 6.8 % (-5.6) H 08/24/18 04:10 Entero/Rhino (PCR) DETECTED (Not Detect) A 08/24/18 16:20 - Microbiology Findings Microbiology Findings: Microbiology, Last 48 Hours 08/24/18 09:12 Sputum Culture - Preliminary Sputum 08/24/18 09:44 Influenza Types A,B Antigen - Final Nasopharyngeal - Clinical Findings Intake & Output: Intake & Output 08/25/18 08/25/18 08/26/18 15:59 23:59 07:59 Intake Total 240 / 240 Balance 240 / 240 Weight 104.2 kg Consult Discharge Plan - Plan Referrals: Joaquín Stuart DO [Partnered Physician] - NONE,PCP [Primary Care Provider] -
[2018-08-26] MEDS: Aspirin 81 MG TAB.CHEW PO SCH (08:00)
[2018-08-26] MEDS: Furosemide 20 MG TABLET PO SCH (08:00)
[2018-08-26] MEDS ORDERED: predniSONE 20 MG TABLET PO SCH (08:00)
[2018-08-26] MEDS: BuPROPion SR (12 HR) 150 MG TABLET PO SCH (08:00)
[2018-08-26] MEDS: Insulin LISPRO 300 UNITS/3 ML VIAL SQ SCH ×2 (08:01→12:34)
--- NOTE | 2018-08-26 08:18 | Discharge Summary ---
<Marcos Thomas - Last Filed: 08/26/18 14:00> - NOTES TO OUTPATIENT PROVIDER Notes to Outpatient Provider: Admitted 08/23/18 with COPD exacerbation and confusion 2/2 hypercarbia. Confusion resolved with BiPAP. PCR pos for entero/rhinovirus. Resp status improved with BiPAP, 3 days azithromycin, and steroids. CTA neg for PE. Will dc with 2 days azithromycin to complete 5 days, 2 week steroid taper, symbicort, home BiPAP, and will have repeat CT chest in 4 weeks with followup with Dr Ellington after. Will need followup with PCP for antihypertenive and antihyperglycemic medical management, A1C 6.8% on no home antiglycemics. Orders not resulted at time of discharge: Pending orders 08/23/18 22:42 Culture,Sputum with Gram Stain [RM] Stat 08/24/18 17:08 Alpha-1-AT Deficiency Reflex Routine 08/24/18 18:06 [id number] Routine 08/25/18 06:59 D-Dimer [COAG] Stat 08/27/18 04:00 BMP [Basic Metabolic Panel] AM 0400 Complete Blood Count w/o Diff [HEME] AM 0400 08/28/18 04:00 BMP [Basic Metabolic Panel] AM 0400 Complete Blood Count w/o Diff [HEME] AM 0400 08/29/18 04:00 BMP [Basic Metabolic Panel] AM 0400 Complete Blood Count w/o Diff [HEME] AM 0400 08/30/18 04:00 BMP [Basic Metabolic Panel] AM 0400 Complete Blood Count w/o Diff [HEME] AM 0400 Date of Encounter: 08/26/18 Time of Encounter: 06:50 - Discharge Diagnosis (1) Acute on chronic respiratory failure with hypoxia and hypercapnia Priority: Primary Status: Acute Assessment and Plan: -Likely 2/2 COPD exacerbation -Initial ABG pH 7.38, pCO2 76, pO2 60 on 4L NC -Repeat 7.43, 77, 51 on 40% FiO2 BiPAP -Placed on BiPAP which was continued overnight -Confusion resolved with BiPAP -CXR 08/23/18 no acute findings -On steroids, q4h duonebs -Most recent ABG pH 7.43, pCO2 67, pO2 58 on 40% FiO2 BiPAP -CTA chest 08/24/18 equivocal for PE, Mild diffuse bilateral tree-in-bud appearance within both lungs. Atypical pulmonary infection is suspected. Soft tissue density within the left upper lobe measuring 2 cm near the left main pulmonary artery likely representing a hilar lymph node. There is associated mild mediastinal adenopathy that is likely reactive. -Repeat CTA 08/25/18 neg for PE -Resp PCR pos for entero/rhinovirus -Pulm on board -Qualified for home BiPAP -Will dc with azithromycin to complete 5 days, 2 week steroid taper and will followup with Dr Ellington in 4-[address] chest (2) Acute exacerbation of chronic obstructive airways disease Priority: Secondary Status: Acute Assessment and Plan: -Green productive cough, increasing dyspnea and hypoxic/hypercarbic resp failure on arrival -WBC 7.6 and afebrile on arrival -Current daily smoker -Sputum culture final pending, prelim normal resp joie -Rapid flu neg -Resp PCR pos for entero/rhinovirus -Started on 500mg azithromycin at admission -Decrease azithromycin to 250mg for total 5 days, stop date 08/27/18 -Ceftriaxone stopped as PCR pos for entero/rhino virus -Afebrile -Required BiPAP with combined metabolic alkalosis and resp acidosis with hypoxia on ABG -Transitioned 08/25/18 to NC during day with nocturnal BiPAP -Pulm on board -Symbicort BID continued -Transition to PO steroids today with 2 week taper -Continue scheduled duonebs, and abx today -Continue BiPAP at night and nc during day (3) Pulmonary embolus Priority: Secondary Status: Acute Assessment and Plan: -CTA chest 08/24/18 equivocal for PE -Started on therapeutic enoxaparin -Repeat CTA 08/25/18 neg for PE -Decrease therapeutic anticoagulation to prophylactic dose Qualifiers: Acute cor pulmonale presence: without acute cor pulmonale Qualified Code(s): I26.99 - Other pulmonary embolism without acute cor pulmonale (4) Diabetes mellitus Priority: Secondary Status: Chronic Assessment and Plan: -Prior A1C year ago 6.7% -No home antihyperglycemics -Repeat A1C 6.8% -Glucose 239 this morning -Continue low SSI -Will need followup with PCP for DM management at dc Qualifiers: Diabetes mellitus type: type 2 Diabetes mellitus custodial insulin use: without custodial use Diabetes mellitus complication status: with unspecified complications Qualified Code(s): E11.8 - Type 2 diabetes mellitus with unspecified complications (5) Hypertension Priority: Secondary Status: Acute Assessment and Plan: -Hx of HTN -BP 154/91 on arrival -149/87 most recent -Home metoprolol started -Will increase BB if continues to trend high and monitor BP -Will need fu with PCP for antihypertensive management at fl Qualifiers: Hypertension type: essential hypertension Qualified Code(s): I10 - Essential (primary) hypertension (6) Hyperkalemia Priority: Secondary Status: Acute Assessment and Plan: -K 4.4 on arrival -Got kayexelate on 08/24/18 with K 5.2, stable since -K 4.7 today -Monitor BMP (7) Tobacco abuse Priority: Secondary Status: Chronic Assessment and Plan: -Recommend cessation at fl Hospital course: Ms. Davila is a 53 year old female who is brought into the ER by her family because of increasing shortness of breath, rhinorrhea, productive cough with greenish sputum for the last few days and a confusional state earlier today. Upon arrival to the ER she was found to be in respiratory distress and was started on nebulizer therapy. She was subsequently escalated to BiPAP in which she had an improvement in her mental status and was now more stable. ABG showing CO2 retention. She was admitted for COPD exacerbation. Confusion resolved with BiPAP. CXR 08/23/18 no acute findings. Most recent ABG pH 7.43, pCO2 67, pO2 58 on 40% FiO2 BiPAP. CTA chest 08/24/18 equivocal for PE, Mild diffuse bilateral tree-in-bud appearance within both lungs. Atypical pulmonary infection is suspected. Soft tissue density within the left upper lobe measuring 2 cm near the left main pulmonary artery likely representing a hilar lymph node. There is associated mild mediastinal adenopathy that is likely reactive. Repeat CTA chest 08/25/18 neg for PE. Bilat LE doppler neg for DVT/SVT. Resp PCR pos for entero/rhinovirus. Sputum culture negative. Rapid flu neg. Started on azithromycin, steroids, and duonebs. Pulm followed. Transitioned to NC during day with nocturnal BiPAP. Qualified for home BiPAP. Prior A1C year ago 6.7%, no home antihyperglycemics, repeat A1C 6.8%. Will dc with azithromycin to complete 5 day course, 2 week steroid taper, symbicort, duonebs, and home BiPAP. Will need repeat CT chest in 4 weeks and followup with Dr Ellington after CT chest complete. Will also followup with PCP for antihyperglycemic and antihypertensive medical management. Discharge discussed with: patient - Time Spent with Patient Total time spent providing and/or coordinating discharge services: Less than 30 minutes - Discharge Medications Prescriptions: Azithromycin [Zithromax] 250 mg PO DAILY 2 Days #2 tablet Budesonide/Formoterol 160/4.5 [Symbicort 160/4.5] 2 puff IH BIDR 30 Days #1 inh PredniSONE [[place]] 5 mg PO TAPER 10 Days #61 tablet. Home Medications: Aspirin 81 mg PO DAILY #90 tab.chew 08/14/17 [Rx] Atorvastatin [Lipitor] 40 mg PO HS #90 tablet 08/14/17 [Rx] Ipratropium/Albuterol Neb [Duoneb] 3 ml IH [id number] #240 inhsol 08/14/17 [Rx] Metoprolol [Lopressor] 12.5 mg PO BID #90 tablet 08/14/17 [Rx] Nitroglycerin 0.4 mg SL Q5MIN PRN #25 tab.subl 08/14/17 [Rx] Albuterol Sulfate [Proair Hfa] 2 puff IH Q4H 01/26/18 [History] BuPROPion SR (12 HR) [Wellbutrin SR] 150 mg PO BID 01/26/18 [History] Furosemide [Lasix] 20 mg PO DAILY PRN 01/26/18 [History] Oxygen 1 each .ROUTE AD 01/26/18 [History] Umeclidinium [place] [Incruse Ellipta] 1 puff IH DAILY 01/26/18 [History] Azithromycin [Zithromax] 250 mg PO DAILY 2 Days #2 tablet 08/26/18 [Rx] Budesonide/Formoterol 160/4.5 [Symbicort 160/4.5] 2 puff IH BIDR 30 Days #1 inh 08/26/18 [Rx] PredniSONE [[place]] 5 mg PO TAPER 10 Days #61 tablet. 08/26/18 [Rx] Allergies/Adverse Reactions: Allergy/AdvReac Type Severity Reaction Status Date / Time No Known Allergies Allergy Verified 01/26/18 17:40 Date of admission: 08/24/18 12:22 Primary care physician: PCP NONE Consults: 08/24/18 14:20 Consult to Pulmonology [CONS] Routine Consulting Provider: [facility] Reason for Consult: Hypercapnea, SOB Call Completed: Yes Discharging clinician: Marcos Thomas Anticipated date of discharge: 08/26/18 - Constitutional Vitals: Temp Pulse Resp BP Pulse Ox 98.5 F 71 18 149/87 96 08/26/18 07:08 08/26/18 07:08 08/26/18 07:21 08/26/18 07:08 08/26/18 07:21 Exam: General: Awake, alert, no acute resp distress or signs of toxicity Head: Atraumatic, normocephalic, Eye: Normal appearance, pupils equal and round, EOMi, no scleral icterus, no conjunctival injection ENT: Mucous membranes dry Neck: Normal inspection, trachea midline Chest: Symmetric chest rise, non tender to palpation Respiratory: Normal resp effort, increased exp phase, decreased breath sounds bilaterally, crackles L base, scattered exp wheezing Cardiovascular: RRR, S1/S2+, no murmurs, rubs, gallops, radial pulse 2+ bilat, 1+ edema Abdomen: Soft, nontender, nondistended, no guarding, rebound, or organomegaly Musculoskeletal: Spontaneously moving all extremities, no calf tenderness Skin: Warm, dry, intact. Neuro: Cranial nerves 2-12 grossly intact, no focal deficits Psych: Normal affect - Patient Status Disposition: Home, Self-Care Condition: Fair Functional capacity at discharge: independent ambulation Overall status at discharge: patient is progressing back to baseline - Ambulatory Orders Ambulatory Orders: CT chest w con [CT] Time Frame: 1 Month, Location: Determined By Patient - Discharge Instructions Follow Up With: Marcos Thomas [Resident] - 08/31/18 3:00 pm Kody Ellington MD [Partnered Physician] - 09/06/18 9:30 am - Diet and Activity Activity: increase activity as tolerated, resume usual activities as tolerated, wear oxygen at all times Diet: diabetic diet, low salt diet <Devika oDver - Last Filed: 08/26/18 14:24> Orders not resulted at time of discharge: Pending orders 08/23/18 22:42 Culture,Sputum with Gram Stain [RM] Stat 08/24/18 17:08 Alpha-1-AT Deficiency Reflex Routine 08/24/18 18:06 [id number] Routine 08/25/18 06:59 D-Dimer [COAG] Stat 08/27/18 04:00 BMP [Basic Metabolic Panel] AM 0400 Complete Blood Count w/o Diff [HEME] AM 0400 08/28/18 04:00 BMP [Basic Metabolic Panel] AM 0400 Complete Blood Count w/o Diff [HEME] AM 0400 08/29/18 04:00 BMP [Basic Metabolic Panel] AM 0400 Complete Blood Count w/o Diff [HEME] AM 0400 08/30/18 04:00 BMP [Basic Metabolic Panel] AM 0400 Complete Blood Count w/o Diff [HEME] AM 0400 Date of Encounter: 08/26/18 - Discharge Diagnosis (1) Tobacco abuse Status: Chronic (2) Diabetes mellitus Status: Chronic Qualifiers: Diabetes mellitus type: type 2 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 Diabetes mellitus complication status: with unspecified complications Qualified Code(s): E11.8 - Type 2 diabetes mellitus with unspecified complications (3) Acute exacerbation of chronic obstructive airways disease Status: Acute (4) Hypertension Status: Acute Qualifiers: Hypertension type: essential hypertension Qualified Code(s): I10 - Essential (primary) hypertension (5) Hyperkalemia Status: Acute (6) Acute on chronic respiratory failure with hypoxia and hypercapnia Status: Acute (7) Pulmonary embolus Status: Acute Qualifiers: Acute cor pulmonale presence: without acute cor pulmonale Qualified Code(s): I26.99 - Other pulmonary embolism without acute cor pulmonale Hospital course: Ms. Davila is a 53 year old female - Time Spent with Patient Total time spent providing and/or coordinating discharge services: Date of admission: 08/24/18 12:22 Primary care physician: PCP NONE Consults: 08/24/18 14:20 Consult to Pulmonology [CONS] Routine Consulting Provider: [facility] Reason for Consult: Hypercapnea, SOB Call Completed: Yes - Constitutional Vitals: Temp Pulse Resp BP Pulse Ox 98.5 F 71 18 149/87 96 08/26/18 07:08 08/26/18 07:08 08/26/18 07:21 08/26/18 07:08 08/26/18 07:21 - Attending Attestation I examined this patient and my medical decision-making was reviewed with the Resident Physician Dr Thomas. I agree with the documented findings, disposition and treatment plan as described except to the extent set forth below/addl details below Ms Davila was admitted with Hypercapnic resp failure with hx copd. She was treated for copd exacerbation this admit. awake, on home o2. overall greatly improved. + dry hacking cough, no sputum, no fevers, chills, n/v. Denies wheezing, orthopnea, le edema, cp. eager for dc to home discussed discharge plan and answered all questions gen- awake, alert cv- reg rate and rhythm, normal s1,s2, no murmurs appreciated, no le edema lungs- no rhonchi or crackles,no wheezing, diminished bs bl bases, norm resp effort on home o2 nc neuro- AAOx3 acute on chronic Hypoxic and Hypercapnic Resp failure , resolved Suspected 2/2 copd exacerbation given sob and green sputum with cough + entero/rhino virus -repeat ct without PE -azithro + steroids and cont home nebs at dc -pulm followed and will see outpt, will need repeat ct chest in 4-6 weeks outpt -cont home o2 daily and bipap hs as qualified this admission, set up by SW DM with a1c 6.8- will need to fu outpt with pcp Chronic Diastolic CHF, euvolemic on exam, CXR without effusions most recent echo 2016 with EF 65-70% and no significant findings noted -cont home asa + statin + bb, lasix, unknown why not on acei/arb at home 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
--- NOTE | 2018-08-26 08:38 | Pulmonology Progress Note ---
<Zoraida Melendez - Last Filed: 08/26/18 09:59> Date of Encounter: 08/26/18 Time of Encounter: 08:35 Assessment and Plan (1) Acute on chronic respiratory failure with hypoxia and hypercapnia Current Visit: Yes Status: Acute Most likely d/t acute exacerbation of COPD that likely resulted from viral infection Initial ABG: pH 7.43 / pCO2 77 / pO2 51 / HCO3 51 --------> pH 7.43 / pCO2 67 / pO2 58 / HCO3 45 Hx of COPD--home oxygen dependent (4L at rest, 6L with activity) SpO2 91% on 4L in emergency department improved to mid 90's with NIPPV CXR shows no acute process, no pleural effusion, appearance similar to CXR 05/19/18 BNP 85 and troponin < 0.03 Final CTA chest negative for PE, demonstrates diffuse tree-in-bud micronodularity as seen in 08/24 CTA chest--most likely from viral bronchiolitis Plan: Outpatient pulmonology follow up in 1 week from discharge BiPAP use recommended for overnight while sleeping and when napping; nasal cannula while awake Continue treatment of COPD exacerbation as below (2) Bronchiolitis Current Visit: Yes Status: Acute Acute viral infection (entero/rhino virus positive on respiratory infection panel) CT scan demonstrates tree-in-bud pattern Pattern on CT can be seen with acute viral infection, but can also be caused by with bronchiolitis interstitial lung disease associated with h/o smoking--as in this patient Plan: Finish Z-pack and complete 2 week taper off of steroid Recommend follow up CT scan within 4-6 weeks (3) Acute exacerbation of chronic obstructive airways disease Current Visit: Yes Status: Acute Etiology of exacerbation doesnt appear cardiogenic----most likely d/t acute viral infection causing bronchiolitis Home oxygen dependent (4L at rest, 6L with activity) 2017 PFTs showed very severe airway obstructive pattern with significant response to bronchodilators BNP 85 and troponin < 0.03 No rales and no lower extremity edema on exam CXR negative for pleural effusion, costophrenic angles preserved 2017 limited echo: LVEF 65-70%, normal LV structure and function Influenza A/B negative Sputum culture grew normal respiratory joie, no pathogens isolated Entero/Rhino virus positive Plan: Complete ZPack Complete 2 week taper off of steroids Continue scheduled bronchodilators Continue symbicort Alpha-1-AT results pending Educated on importance of smoking cessation to prevent further damage to lungs a nd preserve existing function, patient verbalized her understanding (4) Pulmonary embolus Current Visit: Yes Status: Acute 08/24 Chest CTA: several small filling defects of RLL equivocal for pulmonary emboli; mild diffuse bilateral tree-in-bud appearance to both lungs 08/25 Chest CTA: negative for PE, re-demonstration of diffuse tree-in-bud micronodularity Preliminary read of BLE venous duplex appears negative for DVT and SVT Plan: Recommend stopping anticoagulation base on results of venous duplex and 08/25 CTA chest (5) Sleep-disordered breathing Current Visit: Yes Status: Acute Admits snoring at night, no reported episodes of apnea Plan: Recommend outpatient sleep study on BiPAP for further evaluation and management (6) Tobacco abuse Current Visit: Yes Status: Chronic Patient states she has nicotine patches at home and takes wellbutrin to aid in cessation Educated on importance of smoking cessation to prevent further damage to lungs and preserve existing function, patient verbalized her understanding Subjective Principal diagnosis: AECOPD Interval history: Patient seen and examined at bedside this morning. Patient is sitting up in bed watching TV, appears to be breathing comfortably on 5 L nasal cannula. She reports her breathing has improved significantly and overall is feeling much better and feels ready to go home. Objective PUL Vital signs: Last Vital Signs Temp 98.5 F 08/26/18 07:08 Pulse 71 08/26/18 07:08 Resp 18 08/26/18 07:21 BP 149/87 08/26/18 07:08 Pulse Ox 96 08/26/18 07:21 General appearance: no acute distress, alert Eyes: nonicteric ENT: oropharynx moist Neck: supple Effort: normal Auscultation: bilateral: diminished breath sounds, rhonchi (improved) Cardiovascular: regular rate and rhythm Integumentary: normal Extremities: no cyanosis, no edema, no clubbing, pink and warm Musculoskeletal: no deformities normal mental status, non-focal exam, pupils equal and round, CN II-XII normal mood appropriate, affect normal Results - Laboratory Findings CBC and BMP: 08/26/18 05:05 08/26/18 05:05 ABG ABG pH 7.43 pH Units (7.32-7.45) 08/24/18 16:36 ABG pCO2 67 mmHg (35-45) H 08/24/18 16:36 ABG pO2 58 mmHg (85-104) L 08/24/18 16:36 ABG O2 Saturation 89 % (95-98) L 08/24/18 16:36 Abnormal lab findings: Abnormal lab results ABG pCO2 67 mmHg (35-45) H 08/24/18 16:36 ABG pO2 58 mmHg (85-104) L 08/24/18 16:36 ABG HCO3 45 mEq/L (21-27) H 08/24/18 16:36 ABG Total CO2 47 mEq/L (20-26) H 08/24/18 16:36 ABG O2 Saturation 89 % (95-98) L 08/24/18 16:36 ABG Base Excess 16 mEq/L (-2 to 3) H 08/24/18 16:36 Chloride 93 mEq/L (98-107) L 08/26/18 05:05 Carbon Dioxide 42 mEq/L (23-29) H* 08/26/18 05:05 Creatinine 0.45 mg/dL (0.60-1.20) L 08/26/18 05:05 BUN/Creatinine Ratio 33 (6-26) H 08/26/18 05:05 Glucose 239 mg/dL (70-105) H 08/26/18 05:05 POC Glucose 149 mg/dL (70-99) H 08/25/18 19:47 Hemoglobin A1c 6.8 % (-5.6) H 08/24/18 04:10 Entero/Rhino (PCR) DETECTED (Not Detect) A 08/24/18 16:20 - Microbiology Findings Microbiology Findings: Microbiology, Last 48 Hours 08/24/18 09:12 Sputum Culture - Preliminary Sputum 08/24/18 09:44 Influenza Types A,B Antigen - Final Nasopharyngeal - Clinical Findings Intake & Output: Intake & Output 08/25/18 08/26/18 08/26/18 23:59 07:59 15:59 Weight 104.2 kg Consult Discharge Plan - Plan Referrals: Marcos Thomas [Resident] - Kody Ellington MD [Partnered Physician] - NONE,PCP [Primary Care Provider] - Prescriptions: Azithromycin [Zithromax] 250 mg PO DAILY 2 Days #2 tablet Budesonide/Formoterol 160/4.5 [Symbicort 160/4.5] 2 puff IH BIDR 30 Days #1 inh PredniSONE [[place]] 5 mg PO TAPER 10 Days #61 tablet. <Kody Ellington - Last Filed: 08/26/18 11:24> Date of Encounter: 08/26/18 Assessment and Plan (1) Acute on chronic respiratory failure with hypoxia and hypercapnia Current Visit: Yes Status: Acute (2) Pulmonary embolus Current Visit: Yes Status: Acute Qualifiers: Acute cor pulmonale presence: without acute cor pulmonale Qualified Code(s): I26.99 - Other pulmonary embolism without acute cor pulmonale (3) Bronchiolitis Current Visit: Yes Status: Acute (4) Acute exacerbation of chronic obstructive airways disease Current Visit: Yes Status: Acute (5) Sleep-disordered breathing Current Visit: Yes Status: Acute (6) Tobacco abuse Current Visit: Yes Status: Chronic Objective PUL Vital signs: Last Vital Signs Temp 97.6 F 08/26/18 10:51 Pulse 68 08/26/18 10:51 Resp 18 08/26/18 10:51 BP 131/83 08/26/18 10:51 Pulse Ox 97 08/26/18 10:51 Results - Laboratory Findings CBC and BMP: 08/26/18 05:05 08/26/18 05:05 ABG ABG pH 7.43 pH Units (7.32-7.45) 08/24/18 16:36 ABG pCO2 67 mmHg (35-45) H 08/24/18 16:36 ABG pO2 58 mmHg (85-104) L 08/24/18 16:36 ABG O2 Saturation 89 % (95-98) L 08/24/18 16:36 Abnormal lab findings: Abnormal lab results ABG pCO2 67 mmHg (35-45) H 08/24/18 16:36 ABG pO2 58 mmHg (85-104) L 08/24/18 16:36 ABG HCO3 45 mEq/L (21-27) H 08/24/18 16:36 ABG Total CO2 47 mEq/L (20-26) H 08/24/18 16:36 ABG O2 Saturation 89 % (95-98) L 08/24/18 16:36 ABG Base Excess 16 mEq/L (-2 to 3) H 08/24/18 16:36 Chloride 93 mEq/L (98-107) L 08/26/18 05:05 Carbon Dioxide 42 mEq/L (23-29) H* 08/26/18 05:05 Creatinine 0.45 mg/dL (0.60-1.20) L 08/26/18 05:05 BUN/Creatinine Ratio 33 (6-26) H 08/26/18 05:05 Glucose 239 mg/dL (70-105) H 08/26/18 05:05 POC Glucose 224 mg/dL (70-99) H 08/26/18 07:05 Hemoglobin A1c 6.8 % (-5.6) H 08/24/18 04:10 Entero/Rhino (PCR) DETECTED (Not Detect) A 08/24/18 16:20 - Microbiology Findings Microbiology Findings: Microbiology, Last 48 Hours 08/24/18 09:12 Sputum Culture - Preliminary Sputum 08/24/18 09:44 Influenza Types A,B Antigen - Final Nasopharyngeal - Clinical Findings Intake & Output: Intake & Output 08/25/18 08/26/18 08/26/18 23:59 07:59 15:59 Intake Total 240 / 240 Balance 240 / 240 Weight 104.2 kg - Attending Attestation I examined this patient and my medical decision-making was reviewed with the Resident Physician. I agree with the documented findings, disposition and treatment plan as described except to the extent set forth below. We independently had [id number] contact with the patient Patient seen and examined at bedside Labs, radiology, chart personally reviewed. Impression: * Acute on chronic hypoxic hypercapnic respiratory failure * Respiratory bronchiolitis * Acute exacerbation of COPD * Suspected sleep-disordered breathing * Tobacco abuse Recs: -Continue supplemental oxygen to keep saturation greater than 88% at all times -Possibly chronic in the context of respiratory bronchiolitis ILD or acute secondary to [id number] infection or combination of the 2 -Taper steroids over 2 weeks continue bronchodilators -Outpatient polysomnogram -Tobacco cessation counseling given
[2018-08-26] MEDS ORDERED: Azithromycin 250 MG TABLET PO SCH (09:00)
[2018-08-26 10:52] VITALS: BP 131/83
[2018-08-27] MEDS ORDERED: *HR* Enoxaparin 40 MG/0.4 ML SYRINGE SQ SCH (06:00)
--- NOTE | 2018-08-27 21:43 | Electrocardiograph Report ---
[address] [place], [place] [address] Test Date: 2018-08-23 Pat Name: Ariella [place] Department: [id number] Room: 2A12 Gender: F Collator Hand: : 1965 Requested By: Uriel Colmenares Order Number: [id number] Reading MD: Marisela Morales Measurements Intervals [place] Rate: 90 P: 81 VA: 119 QRS: 43 QRSD: 85 T: 73 QT: 355 QTc: 435 Interpretive Statements Sinus rhythm Possible biatrial enlargement Borderline short VA interval Electronically Signed On 08-27-2018 21:41:40 EST by Marisela Morales
== END 2018-08-26 15:12 | disposition home or self-care (01) | DRG 140 ==
LOC: EMEROOARM 20:01 → 2ANU 20:01 → SUATTDRO 22:20 → 2ANU 23:47
PROVIDERS: ADMIT Internal Medicine; ATTEND Internal Medicine

== ENCOUNTER 2021-04-01 03:59 | Inpatient (IN) ==
[2021-04-01 04:18] LABS: ABG Base Excess 16 mEq/L (-2 to 3); ABG HCO3 49 mEq/L (21-27); ABG Oxygen Saturation 86 % (95-98); ABG PCO2 98 mmHg (35-45); ABG PO2 61 mmHg (85-104); ABG TCO2 > 50 mEq/L (20-26)
[2021-04-01] MEDS ORDERED: Ipratropium/Albuterol Neb 3 ML ONE (04:24)
[2021-04-01] MEDS ORDERED: methylPREDNISolone 125 MG/2 ML VIAL IVP ONE (04:37)
[2021-04-01] MEDS ORDERED: Ipratropium/Albuterol Neb 3 ML IH ONE ×2 (04:37→05:01)
[2021-04-01 04:52] LABS: Basophils % 0.5 %; Eosinophils # 0.1 K/mcL (0.0-0.6); Eosinophils % 0.9 %; Hematocrit 44.2 % (35.3-44.9); Hemoglobin 13.2 g/dL (11.5-15.4); Immature Granulocytes % 0.5 % (0-4); Lymphocytes # 1.1 K/mcL (0.6-4.6); Lymphocytes % 14.5 %; Mean Corpuscular HGB Conc 29.9 g/dL (31.6-35.5); Mean Corpuscular Hemoglobin 29.4 pg (28.0-33.3); Mean Corpuscular Volume 98.4 fL (83.0-100.0); Mean Platelet Volume 10.3 fL (9.4-12.4); Monocytes # 0.4 K/mcL (0.0-1.3); Monocytes % 5.5 %; Platelet Count 160 K/mcL (140-400); Red Blood Count 4.49 M/mcL (3.82-4.97); Red Cell Distribution Width 12.9 % (11.5-14.5); Segmented Neutrophils % 78.1 %; White Blood Count 7.7 K/mcL (4.3-11.1)
[2021-04-01] MEDS ORDERED: Piperacillin/Tazobactam 3.375 GM in Water for inj. (sterile) 20 ML IVP ONE (05:01)
[2021-04-01] MEDS ORDERED: Azithromycin 500 MG in 0.9 % Sodium Chloride 250 ML IVPB ONE (05:01)
[2021-04-01 05:15] LABS: BUN/Creatinine Ratio 24 (6-26); Blood Urea Nitrogen 12 mg/dL (6-20); Calcium 9.1 mg/dL (8.6-10.3); Carbon Dioxide 44 mEq/L (23-29); Chloride 91 mEq/L (98-107); Glucose 242 mg/dL (70-105); Osmolality,Calculated 294 (280-300); Potassium 4.6 mEq/L (3.5-5.1); Sodium 138 mEq/L (136-145); Troponin I 0.03 ng/mL (< 0.04); eGFR For African Americans > 60 (> 60); eGFR For Non-African Americans > 60 (> 60)
[2021-04-01] MEDS ORDERED: *HR* FentaNYL (PF) 100 MCG/2 ML VIAL IVP ONE (05:58)
[2021-04-01] MEDS ORDERED: Aspirin 81 MG TAB.CHEW PO ONE (05:58)
[2021-04-01] MEDS ORDERED: Vancomycin 1,250 MG/262.5 ML IV.SOLN IVPB ONE (06:00)
[2021-04-01 06:59] LABS: VBG HCO3 45 mEq/L (21-27); VBG PCO2 83 mmHg (41-51); VBG PH 7.34 pH Units (7.32-7.42); VBG PO2 100 mmHg (25-50)
[2021-04-01 07:51] LABS: Bilirubin,Urine Negative (Negative); Blood,Urine Negative (Negative); Clarity,Urine Clear (Clear); Color,Urine Light-Yellow (Yellow); Glucose,Urine (UA) 300 mg/dL (Normal); Hyaline Casts,Urine Few per lpf (None Seen); Ketones,Urine Negative (Negative); Leukocyte Esterase,Urine Negative (Negative); Nitrite,Urine Negative (Negative); Protein,Urine 100 mg/dL (Neg-Trace); RBC,Urine 0-3 per hpf (0-3); Specific Gravity,Urine 1.019 (1.010-1.025); Squamous Epithelial Cell,Urine Few per hpf (None-Few); Urobilinogen,Urine Normal (Normal); WBC,Urine 0-3 per hpf (0-3)
[2021-04-01] MEDS ORDERED: Dextrose Gel 15 GM/37.5 ML TUBE PO PRN ×2 (08:33)
[2021-04-01] MEDS ORDERED: D5% in Water 1,000 ML IVC PRN (08:33)
[2021-04-01] MEDS ORDERED: Naloxone 0.4 MG/ML INJ IVP PRN (08:33)
[2021-04-01] MEDS ORDERED: *HR* Dextrose 50 % in Water (Vial) 50 ML VIAL IVP PRN (08:33)
[2021-04-01] MEDS ORDERED: Albuterol 2.5 MG/3 ML NEBULIZER IH PRN (09:58)
[2021-04-01] MEDS ORDERED: 0.9 % Sodium Chloride 1,000 ML IVC ONE (10:45)
[2021-04-01] MEDS: cefTRIAXone 2,000 MG in Water for inj. (sterile) 20 ML IVP SCH (10:56)
[2021-04-01] MEDS: MethylPREDNISolone 40 MG/ML VIAL IVP SCH ×2 (10:57→17:02)
[2021-04-01] MEDS: Insulin LISPRO 300 UNITS/3 ML VIAL SUBQ SCH ×3 (11:43→21:03)
[2021-04-01] MEDS: Ipratropium/Albuterol Neb 3 ML IH SCH ×3 (14:17→22:52)
[2021-04-01 14:50] LABS: ABG Base Excess 14 mEq/L (-2 to 3); ABG HCO3 44 mEq/L (21-27); ABG Oxygen Saturation 90 % (95-98); ABG PCO2 82 mmHg (35-45); ABG PH 7.34 pH Units (7.32-7.45); ABG PO2 67 mmHg (85-104); ABG TCO2 47 mEq/L (20-26)
[2021-04-02] MEDS: MethylPREDNISolone 40 MG/ML VIAL IVP SCH ×4 (00:48→17:18)
[2021-04-02 01:28] LABS: Hematocrit 40.3 % (35.3-44.9); Hemoglobin 12.9 g/dL (11.5-15.4); Mean Corpuscular Hemoglobin 30.2 pg (28.0-33.3); Mean Corpuscular Volume 94.4 fL (83.0-100.0); Mean Platelet Volume 10.7 fL (9.4-12.4); Platelet Count 210 K/mcL (140-400); Red Blood Count 4.27 M/mcL (3.82-4.97); Red Cell Distribution Width 12.9 % (11.5-14.5); White Blood Count 5.6 K/mcL (4.3-11.1)
[2021-04-02 01:55] LABS: BUN/Creatinine Ratio 46 (6-26); Blood Urea Nitrogen 17 mg/dL (6-20); Calcium 9.9 mg/dL (8.6-10.3); Carbon Dioxide 40 mEq/L (23-29); Chloride 91 mEq/L (98-107); Glucose 232 mg/dL (70-105); Magnesium 1.9 mg/dL (1.6-2.6); Osmolality,Calculated 291 (280-300); Sodium 136 mEq/L (136-145); eGFR For African Americans > 60 (> 60); eGFR For Non-African Americans > 60 (> 60)
[2021-04-02] MEDS: Ipratropium/Albuterol Neb 3 ML IH SCH ×4 (03:41→23:19)
[2021-04-02] MEDS: *HR* Enoxaparin 40 MG/0.4 ML SYRINGE SQ SCH (05:20)
[2021-04-02 08:04] LABS: ABG Base Excess 13 mEq/L (-2 to 3); ABG HCO3 39 mEq/L (21-27); ABG Oxygen Saturation 95 % (95-98); ABG PCO2 54 mmHg (35-45); ABG PH 7.46 pH Units (7.32-7.45); ABG PO2 71 mmHg (85-104); ABG TCO2 40 mEq/L (20-26)
[2021-04-02] MEDS ORDERED: 0.9 % Sodium Chloride 250 ML ONE (08:21)
[2021-04-02] MEDS: Azithromycin 500 MG in 0.9 % Sodium Chloride 250 ML IVPB SCH (08:24)
[2021-04-02] MEDS: Insulin LISPRO 300 UNITS/3 ML VIAL SUBQ SCH ×4 (08:24→20:22)
[2021-04-02] MEDS: Ondansetron ODT 4 MG TAB.RAPDIS SL PRN (09:10)
[2021-04-02 10:08] LABS: Adenovirus Not Detected (Not Detect); Coronavirus 229E Not Detected (Not Detect); Coronavirus HKU1 Not Detected (Not Detect); Coronavirus NL63 Not Detected (Not Detect); Coronavirus OC43 Not Detected (Not Detect)
[2021-04-02 10:09] LABS: Bordetella Pertussis Not Detected (Not Detect); Chlamydophila pneumoniae Not Detected (Not Detect); Human Metapneumovirus Not Detected (Not Detect); Human Rhinovirus/Enterovirus Not Detected (Not Detect); Influenza A Subtype 2009 H1 Not Detected (Not Detect); Influenza B Not Detected (Not Detect); Mycoplasma pneumoniae Not Detected (Not Detect); Parainfluenza Virus 1 Not Detected (Not Detect); Parainfluenza Virus 2 Not Detected (Not Detect); Parainfluenza Virus 3 Not Detected (Not Detect); Parainfluenza Virus 4 Not Detected (Not Detect); Respiratory Syncytial Virus Not Detected (Not Detect); SARS-CoV-2 Not Detected (Not Detect)
[2021-04-02] MEDS: cefTRIAXone 2,000 MG in Water for inj. (sterile) 20 ML IVP SCH (11:38)
[2021-04-03] MEDS: MethylPREDNISolone 40 MG/ML VIAL IVP SCH ×4 (00:05→21:03)
[2021-04-03] MEDS: Ipratropium/Albuterol Neb 3 ML IH SCH ×4 (04:00→22:04)
[2021-04-03] MEDS: *HR* Enoxaparin 40 MG/0.4 ML SYRINGE SQ SCH (05:22)
[2021-04-03 08:07] LABS: Estimated Average Glucose 140 mg/dl; Hemoglobin A1C 6.5 %
[2021-04-03] MEDS: Azithromycin 500 MG in 0.9 % Sodium Chloride 250 ML IVPB SCH (08:14)
[2021-04-03] MEDS: Insulin LISPRO 300 UNITS/3 ML VIAL SUBQ SCH ×4 (08:17→21:05)
[2021-04-03] MEDS: Acetaminophen 325 MG TABLET PO PRN (11:51)
[2021-04-03] MEDS: cefTRIAXone 2,000 MG in Water for inj. (sterile) 20 ML IVP SCH (11:51)
[2021-04-04] MEDS: Ondansetron ODT 4 MG TAB.RAPDIS SL PRN (02:25)
[2021-04-04 02:26] LABS: Eosinophils % 0.2 %; Hemoglobin 12.1 g/dL (11.5-15.4); Immature Granulocytes % 0.7 % (0-4); Lymphocytes # 0.5 K/mcL (0.6-4.6); Lymphocytes % 11.6 %; Mean Corpuscular HGB Conc 31.8 g/dL (31.6-35.5); Mean Corpuscular Hemoglobin 29.2 pg (28.0-33.3); Mean Corpuscular Volume 91.8 fL (83.0-100.0); Mean Platelet Volume 10.2 fL (9.4-12.4); Monocytes # 0.2 K/mcL (0.0-1.3); Monocytes % 4.8 %; Neutrophils # 3.8 K/mcL (1.6-8.9); Platelet Count 159 K/mcL (140-400); Red Blood Count 4.14 M/mcL (3.82-4.97); Red Cell Distribution Width 12.9 % (11.5-14.5); Segmented Neutrophils % 82.7 %; White Blood Count 4.6 K/mcL (4.3-11.1)
[2021-04-04 02:27] LABS: VBG HCO3 40 mEq/L (21-27); VBG PCO2 49 mmHg (41-51); VBG PH 7.51 pH Units (7.32-7.42); VBG PO2 103 mmHg (25-50)
[2021-04-04] MEDS: Acetaminophen 325 MG TABLET PO PRN (02:28)
[2021-04-04 02:54] LABS: BUN/Creatinine Ratio 53 (6-26); Blood Urea Nitrogen 20 mg/dL (6-20); Calcium 9.1 mg/dL (8.6-10.3); Carbon Dioxide 36 mEq/L (23-29); Chloride 93 mEq/L (98-107); Glucose 218 mg/dL (70-105); Osmolality,Calculated 291 (280-300); Potassium 4.3 mEq/L (3.5-5.1); Sodium 136 mEq/L (136-145); eGFR For African Americans > 60 (> 60); eGFR For Non-African Americans > 60 (> 60)
[2021-04-04] MEDS: MethylPREDNISolone 40 MG/ML VIAL IVP SCH ×2 (04:10→15:50)
[2021-04-04] MEDS: Ipratropium/Albuterol Neb 3 ML IH SCH ×4 (04:15→21:48)
[2021-04-04] MEDS: *HR* Enoxaparin 40 MG/0.4 ML SYRINGE SQ SCH (06:32)
[2021-04-04] MEDS: Insulin LISPRO 300 UNITS/3 ML VIAL SUBQ SCH ×4 (08:02→21:16)
[2021-04-04] MEDS: Azithromycin 500 MG in 0.9 % Sodium Chloride 250 ML IVPB SCH (09:47)
[2021-04-04] MEDS: cefTRIAXone 2,000 MG in Water for inj. (sterile) 20 ML IVP SCH (11:47)
[2021-04-05] MEDS: Acetaminophen 325 MG TABLET PO PRN (01:32)
[2021-04-05] MEDS: Ipratropium/Albuterol Neb 3 ML IH SCH ×2 (03:49→09:46)
[2021-04-05] MEDS: *HR* Enoxaparin 40 MG/0.4 ML SYRINGE SQ SCH (04:49)
[2021-04-05] MEDS: MethylPREDNISolone 40 MG/ML VIAL IVP SCH (04:49)
[2021-04-05] MEDS: Insulin LISPRO 300 UNITS/3 ML VIAL SUBQ SCH ×2 (07:50→11:55)
[2021-04-05] MEDS ORDERED: Azithromycin 250 MG TABLET PO ONE (08:15)
[2021-04-05 11:23] VITALS: BP 152/86
[2021-04-05] MEDS: cefTRIAXone 2,000 MG in Water for inj. (sterile) 20 ML IVP SCH (11:55)
== END 2021-04-05 15:23 | disposition home health service (06) | DRG 720 ==
LOC: EMEROOARM 03:59 → CDU 03:59 → SUATTDRO 06:34 → CDU 08:03 → 2ANU 14:32 → SUATTDRO 04-02 14:30
PROVIDERS: ADMIT Internal Medicine; ATTEND Internal Medicine

== ENCOUNTER 2021-10-09 18:42 | Inpatient (IN) ==
[2021-10-09] MEDS ORDERED: Isovue-370 500 ML BOTTLE IVP ONE (19:19)
[2021-10-09] MEDS ORDERED: Ipratropium/Albuterol Neb 3 ML IH ONE (19:59)
[2021-10-09] MEDS ORDERED: methylPREDNISolone 125 MG/2 ML VIAL IVP ONE (19:59)
[2021-10-09 20:21] LABS: Basophils % 0.3 %; Eosinophils % 0.2 %; Hematocrit 43.6 % (35.3-44.9); Hemoglobin 13.4 g/dL (11.5-15.4); Immature Granulocytes % 0.4 % (0-4); Lymphocytes # 0.7 K/mcL (0.6-4.6); Lymphocytes % 5.9 %; Mean Corpuscular HGB Conc 30.7 g/dL (31.6-35.5); Mean Corpuscular Hemoglobin 29.7 pg (28.0-33.3); Mean Corpuscular Volume 96.7 fL (83.0-100.0); Mean Platelet Volume 10.2 fL (9.4-12.4); Monocytes # 0.7 K/mcL (0.0-1.3); Monocytes % 5.6 %; Neutrophils # 10.8 K/mcL (1.6-8.9); Platelet Count 235 K/mcL (140-400); Red Blood Count 4.51 M/mcL (3.82-4.97); Red Cell Distribution Width 13.4 % (11.5-14.5); Segmented Neutrophils % 87.6 %; White Blood Count 12.3 K/mcL (4.3-11.1)
[2021-10-09 20:42] LABS: BUN/Creatinine Ratio 31 (6-26); Blood Urea Nitrogen 11 mg/dL (6-20); Calcium 8.8 mg/dL (8.6-10.3); Carbon Dioxide 38 mEq/L (23-29); Chloride 91 mEq/L (98-107); Glucose 171 mg/dL (70-105); Osmolality,Calculated 285 (280-300); Potassium 4.2 mEq/L (3.5-5.1); Sodium 136 mEq/L (136-145); eGFR For African Americans > 60 (> 60); eGFR For Non-African Americans > 60 (> 60)
[2021-10-09 20:47] LABS: Troponin I 0.06 ng/mL (< 0.04)
[2021-10-09 21:41] LABS: Influenza A PCR Negative (Negative); Influenza B PCR Negative (Negative); Resp. Syncytial Virus PCR Negative (Negative); SARS-CoV-2 by PCR (In House) Negative (Negative)
[2021-10-09] MEDS ORDERED: Azithromycin 500 MG in 0.9 % Sodium Chloride 250 ML IVPB ONE (23:50)
[2021-10-09] MEDS ORDERED: cefTRIAXone 1,000 MG in Water for inj. (sterile) 10 ML IVP ONE (23:50)
[2021-10-09] MEDS ORDERED: Aspirin 325 MG TABLET PO ONE (23:51)
[2021-10-10] MEDS ORDERED: *HR* Dextrose 50 % in Water (Syg) 50 ML SYRINGE IVP PRN (01:30)
[2021-10-10] MEDS ORDERED: Dextrose Gel 15 GM/37.5 ML TUBE PO PRN ×2 (01:30)
[2021-10-10] MEDS ORDERED: D5% in Water 1,000 ML IVC PRN (01:30)
[2021-10-10] MEDS ORDERED: Ondansetron 4 MG/2 ML VIAL IVP PRN (01:54)
[2021-10-10] MEDS ORDERED: Naloxone 0.4 MG/ML INJ IVP PRN (01:54)
[2021-10-10] MEDS ORDERED: Acetaminophen 325 MG TABLET PO PRN (01:54)
[2021-10-10] MEDS: Levalbuterol Neb 1.25 MG/3 ML IH SCH ×6 (03:11→23:48)
[2021-10-10 03:13] LABS: Hematocrit 41.9 % (35.3-44.9); Hemoglobin 12.6 g/dL (11.5-15.4); Mean Corpuscular HGB Conc 30.1 g/dL (31.6-35.5); Mean Corpuscular Hemoglobin 29.2 pg (28.0-33.3); Mean Platelet Volume 10.1 fL (9.4-12.4); Platelet Count 213 K/mcL (140-400); Red Blood Count 4.32 M/mcL (3.82-4.97); Red Cell Distribution Width 13.4 % (11.5-14.5); White Blood Count 10.2 K/mcL (4.3-11.1)
[2021-10-10] MEDS ORDERED: Nitroglycerin 0.4 MG TAB.SUBL SL PRN (03:18)
[2021-10-10 03:22] LABS: ABG Base Excess 10 mEq/L (-2 to 3); ABG HCO3 40 mEq/L (21-27); ABG Oxygen Saturation 96 % (95-98); ABG PCO2 81 mmHg (35-45); ABG PO2 92 mmHg (85-104); ABG TCO2 43 mEq/L (20-26)
[2021-10-10 03:23] LABS: INR 1.1; Prothrombin Time 12.2 Seconds (9.4-12.1)
[2021-10-10 03:24] LABS: BUN/Creatinine Ratio 32 (6-26); Blood Urea Nitrogen 12 mg/dL (6-20); Calcium 8.9 mg/dL (8.6-10.3); Carbon Dioxide 39 mEq/L (23-29); Chloride 93 mEq/L (98-107); Chol/HDL Ratio 4.3 (0-4.9); Cholesterol 82 mg/dL (< 200); Glucose 235 mg/dL (70-105); HDL Cholesterol 19 mg/dL (40-59); LDL Cholesterol,Calculated 48 mg/dL (< 100); Magnesium 1.9 mg/dL (1.6-2.6); Osmolality,Calculated 289 (280-300); Sodium 136 mEq/L (136-145); Triglycerides 74 mg/dL (< 150); eGFR For African Americans > 60 (> 60); eGFR For Non-African Americans > 60 (> 60)
[2021-10-10 03:26] LABS: Activated Partial Thrombo Time 31.2 Seconds (26.0-36.0)
[2021-10-10] MEDS: Insulin LISPRO 300 UNITS/3 ML VIAL SUBQ SCH ×6 (03:31→21:15)
[2021-10-10] MEDS ORDERED: Perflutren Lipid Microsphere 1.3 ML in 0.9 % Sodium Chloride 8.7 ML IVP PRN (03:35)
[2021-10-10 05:36] LABS: Estimated Average Glucose 120 mg/dl; Hemoglobin A1C 5.8 %
[2021-10-10] MEDS: *HR* Heparin 5,000 UNIT/ML VIAL SQ SCH ×3 (06:25→21:15)
[2021-10-10] MEDS: methylPREDNISolone 125 MG/2 ML VIAL IVP SCH ×2 (07:48→14:39)
[2021-10-10] MEDS: Aspirin Enteric Coated 81 MG Tablet PO SCH (07:48)
[2021-10-10] MEDS: cefTRIAXone 1,000 MG in 0.9 % Sodium Chloride Mini Bag 100 ML IVPB SCH (11:58)
[2021-10-10] MEDS: Azithromycin 500 MG in 0.9 % Sodium Chloride 250 ML IVPB SCH (16:42)
[2021-10-11] MEDS: methylPREDNISolone 125 MG/2 ML VIAL IVP SCH ×4 (00:52→19:26)
[2021-10-11] MEDS: cefTRIAXone 1,000 MG in 0.9 % Sodium Chloride Mini Bag 100 ML IVPB SCH ×2 (00:53→11:11)
[2021-10-11] MEDS: Levalbuterol Neb 1.25 MG/3 ML IH SCH ×3 (03:50→11:53)
[2021-10-11] MEDS: *HR* Heparin 5,000 UNIT/ML VIAL SQ SCH ×2 (05:35→12:51)
[2021-10-11 06:17] LABS: Hematocrit 40.9 % (35.3-44.9); Hemoglobin 12.7 g/dL (11.5-15.4); Mean Corpuscular HGB Conc 31.1 g/dL (31.6-35.5); Mean Corpuscular Volume 96.5 fL (83.0-100.0); Mean Platelet Volume 10.3 fL (9.4-12.4); Platelet Count 238 K/mcL (140-400); Red Blood Count 4.24 M/mcL (3.82-4.97); Red Cell Distribution Width 13.2 % (11.5-14.5); White Blood Count 6.8 K/mcL (4.3-11.1)
[2021-10-11 06:19] LABS: BUN/Creatinine Ratio 53 (6-26); Blood Urea Nitrogen 19 mg/dL (6-20); Calcium 9.1 mg/dL (8.6-10.3); Carbon Dioxide 41 mEq/L (23-29); Chloride 95 mEq/L (98-107); Glucose 230 mg/dL (70-105); Osmolality,Calculated 298 (280-300); Potassium 4.4 mEq/L (3.5-5.1); Sodium 139 mEq/L (136-145); eGFR For African Americans > 60 (> 60); eGFR For Non-African Americans > 60 (> 60)
[2021-10-11] MEDS: Loratadine 10 MG TABLET PO SCH (08:20)
[2021-10-11] MEDS: Aspirin Enteric Coated 81 MG Tablet PO SCH (08:20)
[2021-10-11] MEDS ORDERED: NON-FORMULARY MEDICATION 1 EACH EACH (Omeprazole [Prilosec] 40 MG Capsule.Dr) PO SCH (09:00)
[2021-10-11] MEDS: Insulin LISPRO 300 UNITS/3 ML VIAL SUBQ SCH ×4 (09:13→22:08)
[2021-10-11] MEDS: Ipratropium/Albuterol Neb 3 ML IH SCH ×2 (15:12→19:35)
[2021-10-11] MEDS: Azithromycin 500 MG in 0.9 % Sodium Chloride 250 ML IVPB SCH (17:54)
[2021-10-12] MEDS: Ipratropium/Albuterol Neb 3 ML IH SCH ×7 (00:15→23:30)
[2021-10-12] MEDS: *HR* Heparin 5,000 UNIT/ML VIAL SQ SCH ×4 (02:37→20:28)
[2021-10-12] MEDS: methylPREDNISolone 125 MG/2 ML VIAL IVP SCH (05:06)
[2021-10-12] MEDS: Insulin LISPRO 300 UNITS/3 ML VIAL SUBQ SCH ×4 (07:57→20:29)
[2021-10-12] MEDS: Aspirin Enteric Coated 81 MG Tablet PO SCH (07:57)
[2021-10-12] MEDS: Loratadine 10 MG TABLET PO SCH (07:57)
[2021-10-12 08:57] LABS: Hematocrit 43.3 % (35.3-44.9); Hemoglobin 13.2 g/dL (11.5-15.4); Mean Corpuscular HGB Conc 30.5 g/dL (31.6-35.5); Mean Corpuscular Hemoglobin 29.2 pg (28.0-33.3); Mean Corpuscular Volume 95.8 fL (83.0-100.0); Platelet Count 253 K/mcL (140-400); Red Blood Count 4.52 M/mcL (3.82-4.97); Red Cell Distribution Width 13.2 % (11.5-14.5); White Blood Count 7.8 K/mcL (4.3-11.1)
[2021-10-12 09:20] LABS: BUN/Creatinine Ratio 49 (6-26); Blood Urea Nitrogen 19 mg/dL (6-20); Calcium 9.2 mg/dL (8.6-10.3); Carbon Dioxide 38 mEq/L (23-29); Chloride 95 mEq/L (98-107); Glucose 256 mg/dL (70-105); Osmolality,Calculated 295 (280-300); Potassium 4.4 mEq/L (3.5-5.1); Sodium 137 mEq/L (136-145); eGFR For African Americans > 60 (> 60); eGFR For Non-African Americans > 60 (> 60)
[2021-10-12] MEDS ORDERED: cefTRIAXone 1,000 MG in 0.9 % Sodium Chloride Mini Bag 100 ML IVPB SCH (12:00)
[2021-10-12] MEDS: MethylPREDNISolone 40 MG/ML VIAL IVP SCH (13:58)
[2021-10-12] MEDS: Cefepime HCl 1,000 MG in 0.9 % Sodium Chloride Mini Bag 100 ML IVPB SCH (16:31)
[2021-10-12] MEDS: Azithromycin 500 MG in 0.9 % Sodium Chloride 250 ML IVPB SCH (17:38)
[2021-10-13] MEDS: Cefepime HCl 1,000 MG in 0.9 % Sodium Chloride Mini Bag 100 ML IVPB SCH ×2 (01:23→09:08)
[2021-10-13] MEDS: MethylPREDNISolone 40 MG/ML VIAL IVP SCH (01:23)
[2021-10-13] MEDS: Ipratropium/Albuterol Neb 3 ML IH SCH ×3 (03:48→11:30)
[2021-10-13] MEDS: *HR* Heparin 5,000 UNIT/ML VIAL SQ SCH (05:54)
[2021-10-13 07:47] VITALS: BP 167/64; PULSE 72; TEMP 98.6
[2021-10-13] MEDS: Insulin LISPRO 300 UNITS/3 ML VIAL SUBQ SCH (09:07)
[2021-10-13] MEDS: Aspirin Enteric Coated 81 MG Tablet PO SCH (09:08)
[2021-10-13] MEDS: Loratadine 10 MG TABLET PO SCH (09:08)
[2021-10-13] MEDS ORDERED: predniSONE 20 MG TABLET PO ONE (09:49)
[2021-10-13 12:22] VITALS: O2SAT 96
== END 2021-10-13 11:56 | disposition home or self-care (01) | DRG 720 ==
LOC: 2ANU 18:42 → EMEROOARM 18:42 → SUATTDRO 10-10 01:08 → 2ANU 10-10 01:45
PROVIDERS: ADMIT Student in an Organized Health Care Education/Training Program; ATTEND Internal Medicine

== ENCOUNTER 2022-03-05 20:06 | Inpatient (IN) ==
[2022-03-05] MEDS ORDERED: Ipratropium/Albuterol Neb 3 ML IH ONE (20:28)
[2022-03-05] MEDS ORDERED: Albuterol 2.5 MG/3 ML NEBULIZER IH ONE (20:28)
[2022-03-05] MEDS ORDERED: methylPREDNISolone 125 MG/2 ML VIAL IVP ONE (20:28)
[2022-03-05 20:41] LABS: Basophils # 0.1 K/mcL (0.0-0.2); Basophils % 0.4 %; Eosinophils % 0.2 %; Hematocrit 41.6 % (35.3-44.9); Hemoglobin 13.2 g/dL (11.5-15.4); Immature Granulocytes % 0.4 % (0-4); Lymphocytes # 2.4 K/mcL (0.6-4.6); Lymphocytes % 14.9 %; Mean Corpuscular HGB Conc 31.7 g/dL (31.6-35.5); Mean Corpuscular Hemoglobin 31.1 pg (28.0-33.3); Mean Corpuscular Volume 98.1 fL (83.0-100.0); Mean Platelet Volume 9.9 fL (9.4-12.4); Monocytes % 12.4 %; Neutrophils # 11.6 K/mcL (1.6-8.9); Platelet Count 357 K/mcL (140-400); Red Blood Count 4.24 M/mcL (3.82-4.97); Red Cell Distribution Width 12.4 % (11.5-14.5); Segmented Neutrophils % 71.7 %; White Blood Count 16.2 K/mcL (4.3-11.1)
[2022-03-05 21:06] LABS: ABG Base Excess 16 mEq/L (-2 to 3); ABG HCO3 49 mEq/L (21-27); ABG Oxygen Saturation 89 % (95-98); ABG PCO2 109 mmHg (35-45); ABG PH 7.26 pH Units (7.32-7.45); ABG PO2 71 mmHg (85-104); ABG TCO2 > 50 mEq/L (20-26)
[2022-03-05 21:16] LABS: Alanine Aminotransferase 29 Units/L (7-52); Albumin 3.7 g/dL (3.5-5.7); Albumin/Globulin Ratio 1.1 (1.1-2.2); Alkaline Phosphatase 101 Units/L (34-104); Aspartate Amino Transferase 34 Units/L (13-39); BUN/Creatinine Ratio 33 (6-26); Bilirubin,Total 0.4 mg/dL (0.3-1.0); Blood Urea Nitrogen 12 mg/dL (6-20); Calcium 9.1 mg/dL (8.6-10.3); Carbon Dioxide > 45 mEq/L (23-29); Chloride 82 mEq/L (98-107); Globulin 3.3 g/dL (2.4-3.5); Glucose 197 mg/dL (70-105); Magnesium 1.5 mg/dL (1.6-2.6); Osmolality,Calculated 279 (280-300); Potassium 4.4 mEq/L (3.5-5.1); Sodium 132 mEq/L (136-145); Troponin I 0.03 ng/mL (< 0.04); eGFR For African Americans > 60 (> 60); eGFR For Non-African Americans > 60 (> 60)
[2022-03-05 21:18] LABS: VBG HCO3 46 mEq/L (21-27); VBG PCO2 97 mmHg (41-51); VBG PH 7.28 pH Units (7.32-7.42); VBG PO2 101 mmHg (25-50)
[2022-03-05 21:37] LABS: Adenovirus Not Detected (Not Detect); Bordetella Pertussis Not Detected (Not Detect); Chlamydophila pneumoniae Not Detected (Not Detect); Coronavirus 229E Not Detected (Not Detect); Coronavirus HKU1 Not Detected (Not Detect); Coronavirus NL63 Not Detected (Not Detect); Coronavirus OC43 Not Detected (Not Detect); Human Metapneumovirus Not Detected (Not Detect); Human Rhinovirus/Enterovirus Not Detected (Not Detect); Influenza A Subtype 2009 H1 Not Detected (Not Detect); Influenza B Not Detected (Not Detect); Mycoplasma pneumoniae Not Detected (Not Detect); Parainfluenza Virus 1 Not Detected (Not Detect); Parainfluenza Virus 2 Not Detected (Not Detect); Parainfluenza Virus 3 Not Detected (Not Detect); Parainfluenza Virus 4 Not Detected (Not Detect); Respiratory Syncytial Virus Not Detected (Not Detect); SARS-CoV-2 Not Detected (Not Detect)
[2022-03-05] MEDS ORDERED: Naloxone 0.4 MG/ML INJ IVP PRN (23:02)
[2022-03-05] MEDS ORDERED: Acetaminophen 325 MG TABLET PO PRN (23:02)
[2022-03-05] MEDS ORDERED: Ondansetron 4 MG/2 ML VIAL IVP PRN (23:02)
[2022-03-05] MEDS ORDERED: Magnesium Sulfate 1 GM/102 ML PIGGYBACK IVPB ONE (23:05)
[2022-03-05] MEDS ORDERED: D5% in Water 1,000 ML IVC PRN (23:06)
[2022-03-05] MEDS ORDERED: Dextrose 4 GM Chewable Tablets PO PRN ×2 (23:06)
[2022-03-05] MEDS ORDERED: *HR* Dextrose 50 % in Water (Syg) 50 ML SYRINGE IVP PRN (23:06)
[2022-03-06] MEDS: Insulin LISPRO 300 UNITS/3 ML VIAL SUBQ SCH ×4 (00:42→17:56)
[2022-03-06 02:01] LABS: ABG Base Excess 16 mEq/L (-2 to 3); ABG HCO3 47 mEq/L (21-27); ABG Oxygen Saturation 95 % (95-98); ABG PCO2 94 mmHg (35-45); ABG PH 7.31 pH Units (7.32-7.45); ABG PO2 88 mmHg (85-104); ABG TCO2 > 50 mEq/L (20-26)
[2022-03-06] MEDS ORDERED: Loratadine 10 MG TABLET PO PRN (02:42)
[2022-03-06] MEDS: Ipratropium/Albuterol Neb 3 ML IH SCH ×6 (03:21→23:18)
[2022-03-06 04:39] LABS: Basophils % 0.3 %; Hematocrit 39.4 % (35.3-44.9); Hemoglobin 12.4 g/dL (11.5-15.4); Immature Granulocytes % 0.3 % (0-4); Lymphocytes # 0.7 K/mcL (0.6-4.6); Mean Corpuscular HGB Conc 31.5 g/dL (31.6-35.5); Mean Corpuscular Hemoglobin 30.8 pg (28.0-33.3); Mean Corpuscular Volume 97.8 fL (83.0-100.0); Mean Platelet Volume 9.9 fL (9.4-12.4); Monocytes # 0.6 K/mcL (0.0-1.3); Monocytes % 6.1 %; Neutrophils # 8.7 K/mcL (1.6-8.9); Platelet Count 234 K/mcL (140-400); Red Blood Count 4.03 M/mcL (3.82-4.97); Red Cell Distribution Width 12.4 % (11.5-14.5); Segmented Neutrophils % 86.3 %; White Blood Count 10.1 K/mcL (4.3-11.1)
[2022-03-06 04:45] LABS: Prothrombin Time 11.3 Seconds (9.4-12.1)
[2022-03-06 05:09] LABS: BUN/Creatinine Ratio 36 (6-26); Blood Urea Nitrogen 12 mg/dL (6-20); Calcium 9.1 mg/dL (8.6-10.3); Carbon Dioxide 45 mEq/L (23-29); Chloride 83 mEq/L (98-107); Glucose 195 mg/dL (70-105); Magnesium 1.9 mg/dL (1.6-2.6); Osmolality,Calculated 281 (280-300); Phosphorous 3.4 mg/dL (2.7-4.5); Potassium 4.7 mEq/L (3.5-5.1); Sodium 133 mEq/L (136-145); Troponin I 0.03 ng/mL (< 0.04); eGFR For African Americans > 60 (> 60); eGFR For Non-African Americans > 60 (> 60)
[2022-03-06] MEDS ORDERED: Pantoprazole 40 MG VIAL IVP SCH (09:00)
[2022-03-06] MEDS: Azithromycin 500 MG in 0.9 % Sodium Chloride 250 ML IVPB SCH (09:08)
[2022-03-06] MEDS: MethylPREDNISolone 40 MG/ML VIAL IVP SCH ×2 (09:08→22:41)
[2022-03-06] MEDS: *HR* Enoxaparin 40 MG/0.4 ML SYRINGE SQ SCH (09:08)
[2022-03-07] MEDS: Insulin LISPRO 300 UNITS/3 ML VIAL SUBQ SCH ×5 (01:15→20:24)
[2022-03-07 01:59] LABS: Hematocrit 39.1 % (35.3-44.9); Hemoglobin 12.3 g/dL (11.5-15.4); Mean Corpuscular HGB Conc 31.5 g/dL (31.6-35.5); Mean Corpuscular Hemoglobin 31.1 pg (28.0-33.3); Mean Platelet Volume 9.9 fL (9.4-12.4); Platelet Count 227 K/mcL (140-400); Red Blood Count 3.95 M/mcL (3.82-4.97); Red Cell Distribution Width 12.1 % (11.5-14.5); White Blood Count 7.2 K/mcL (4.3-11.1)
[2022-03-07 02:41] LABS: VBG HCO3 42 mEq/L (21-27); VBG PCO2 73 mmHg (41-51); VBG PH 7.37 pH Units (7.32-7.42); VBG PO2 77 mmHg (25-50)
[2022-03-07 03:34] LABS: BUN/Creatinine Ratio 42 (6-26); Blood Urea Nitrogen 14 mg/dL (6-20); Calcium 9.1 mg/dL (8.6-10.3); Carbon Dioxide > 45 mEq/L (23-29); Chloride 84 mEq/L (98-107); Glucose 215 mg/dL (70-105); Osmolality,Calculated 283 (280-300); Potassium 4.9 mEq/L (3.5-5.1); Sodium 133 mEq/L (136-145); eGFR For African Americans > 60 (> 60); eGFR For Non-African Americans > 60 (> 60)
[2022-03-07] MEDS: Ipratropium/Albuterol Neb 3 ML IH SCH ×5 (03:51→20:07)
[2022-03-07] MEDS: Lisinopril-HCTZ 20-12.5mg TABLET PO SCH (09:16)
[2022-03-07] MEDS: Aspirin Enteric Coated 81 MG Tablet PO SCH (09:16)
[2022-03-07] MEDS: Azithromycin 500 MG in 0.9 % Sodium Chloride 250 ML IVPB SCH (09:17)
[2022-03-07] MEDS: *HR* Enoxaparin 40 MG/0.4 ML SYRINGE SQ SCH (09:17)
[2022-03-07] MEDS: MethylPREDNISolone 40 MG/ML VIAL IVP SCH ×2 (09:17→20:24)
[2022-03-07] MEDS ORDERED: Tiotropium 10 INH DOSE IH SCH (10:00)
[2022-03-07] MEDS ORDERED: Insulin DETEMIR 100 UNIT/ML X5UNITS SUBQ SCH (21:00)
[2022-03-08] MEDS: Ipratropium/Albuterol Neb 3 ML IH SCH ×4 (00:05→11:06)
[2022-03-08 05:51] LABS: BUN/Creatinine Ratio 53 (6-26); Blood Urea Nitrogen 19 mg/dL (6-20); Calcium 9.2 mg/dL (8.6-10.3); Carbon Dioxide > 45 mEq/L (23-29); Chloride 84 mEq/L (98-107); Glucose 257 mg/dL (70-105); Osmolality,Calculated 287 (280-300); Potassium 4.7 mEq/L (3.5-5.1); Sodium 133 mEq/L (136-145); eGFR For African Americans > 60 (> 60); eGFR For Non-African Americans > 60 (> 60)
[2022-03-08] MEDS: MethylPREDNISolone 40 MG/ML VIAL IVP SCH (07:44)
[2022-03-08] MEDS: Lisinopril-HCTZ 20-12.5mg TABLET PO SCH (07:44)
[2022-03-08] MEDS: *HR* Enoxaparin 40 MG/0.4 ML SYRINGE SQ SCH (07:44)
[2022-03-08] MEDS: Aspirin Enteric Coated 81 MG Tablet PO SCH (07:44)
[2022-03-08] MEDS: Insulin LISPRO 300 UNITS/3 ML VIAL SUBQ SCH (07:45)
[2022-03-08] MEDS ORDERED: Ibuprofen 600 MG TABLET PO ONE (07:58)
[2022-03-08] MEDS ORDERED: Azithromycin 250 MG TABLET PO SCH (09:00)
[2022-03-08 11:29] VITALS: BP 137/83; PULSE 87; TEMP 97.7; O2SAT 98
== END 2022-03-08 12:15 | disposition home or self-care (01) | DRG 720 ==
LOC: 2NENU 20:06 → EMEROOARM 20:06 → 2NENU 03-06 00:05
PROVIDERS: ADMIT Family Medicine; ATTEND Family Medicine